=== PATIENT | female | born 1960 | race Caucasian/White ===

== ENCOUNTER 2020-08-12 12:42 | Outpatient (REF) | payer MEDICAID, SELFPAY ==
--- NOTE | 2020-08-12 | MM_ITS ---
EXAMINATION: MM SCREENING DIGITAL BREAST TOMOSYNTHESIS, BILATERAL CLINICAL INFORMATION: Screening. Asymptomatic. The lifetime risk of breast cancer based on the Tyrer-Cuzick Model is 5%. COMPARISON: Mammography: 06/28/2016, 01/23/2015 TECHNIQUE: Digital breast tomosynthesis is performed in both the craniocaudal and mediolateral oblique views along with computer-aided detection (CAD). Synthesized 2D images are generated from the tomosynthesis. FINDINGS: There are scattered areas of fibroglandular density (ACR BI-RADS breast composition Category b). There are no significant masses, abnormal calcifications, or other abnormalities. The axilla and skin contours are unremarkable. No significant changes. MM/MM tomosynthesis screening BI IMPRESSION: No mammographic evidence of malignancy. ASSESSMENT: BI-RADS 1: Negative RECOMMENDATION: Routine annual mammography screening. This patient's information was entered into a reminder system with a target due date for their next mammogram.
== END 2020-08-12 12:43 | disposition home or self-care (01) ==
LOC: HO.MAMMO 12:42
PROVIDERS: PCP Internal Medicine; Visit Provider Internal Medicine
DX: Z12.31 Encounter for screening mammogram for malignant neoplasm of breast (principal)
CPT/HCPCS: 77063; 77067

== ENCOUNTER 2020-09-17 23:26 | Emergency (ER) | payer MEDICAID, SELFPAY ==
[2020-09-17 23:29] VITALS: BP 163/91; PULSE 78; RESP 16; TEMP 36.6; O2SAT 100
--- NOTE | 2020-09-17 23:42 | ED_ITS ---
HPI - General Adult General Chief complaint: Anxiety Stated complaint: HIGH BLOOD PRESSURE Time Seen by Provider: 09/17/20 23:40 Source: patient Limitations: no limitations History of Present Illness HPI narrative: Patient is anxious and having high blood pressure. Recently placed on sertaline for anxiety but her blood pressure has been running high since starting her new medication Onset (ago): day(s) Severity: moderate Associated symptoms: other (palpitations and elevated BP) Related Data Allergies Allergy/AdvReac Type Severity Reaction Status Date / Time No Known Allergies Allergy Verified 09/18/20 00:04 Review of Systems Constitutional: Constitutional: Reports no additional constitutional complaints Eyes: Eyes: Reports no additional eye complaints ENT: Denies dizziness Cardiovascular: Cardiovascular: Reports no additional cardiovascular complaints Respiratory: Respiratory: Reports as per HPI Gastrointestinal: Gastrointestinal: Reports no additional gastrointestinal complaints Genitourinary: Genitourinary: Reports no additional female genitourinary complaints Musculoskeletal: Musculoskeletal: Reports no additional musculoskeletal complaints Integumentary/Breasts: Skin/Breast: Denies rash Neurologic: Reports system reviewed and no additional complaints, except as documented, Denies dizziness and Denies Sensory deficit (Neuro) Psychiatric: Psychiatric: Reports anxiety Comments: patient feeling that her blood pressure is coming from her new anxiety medication PMFSH Past Medical History Medical History Anxiety Diabetes High cholesterol Hypertension Social History Social History Use of substances other than those prescribed or required for medical reasons: No Advance Directives: No Advance Directives Information Provided: No Physical Exam Vital Signs: Vital Signs: Last Vital Signs Temp 98.7 F 09/18/20 00:04 Pulse 67 09/18/20 00:04 Resp 16 09/18/20 00:04 BP 156/89 H 09/18/20 00:04 Pulse Ox 99 09/18/20 00:04 Body Mass Index 25.7 Const: Other: tremulous General: anxious Nutritional Appearance: average body habitus Orientation/consciousness: oriented to person and patient oriented x3 Limitations: no limitations HENMT: Head: Yes normal to inspection Ears: external ears normal General nose exam: Normal external nose present Mouth: Normal oral and palatal mucosa present and oropharynx normal Throat: Yes posterior oropharynx normal Eyes: General: appearance normal, both eyes and all related structures Neck: Other: supple Neck: Yes normal visual inspection Chest: Chest palpation & inspection: normal inspection of the chest Resp: Auscultation: clear to auscultation bilaterally Cardio: Jugular venous distension: no JVD Rate: regular rate Rhythm: regular rhythm Heart sounds: S1 normal heart sound present and S2 normal heart sound present GI: Inspection: Yes normal to inspection Palpation (GI): Soft to palpation, nontender and No hepatosplenomegaly present Auscultation: normal bowel sounds : General: Yes no CVA tenderness Back/Spine/Pelvis: Back: no CVA tenderness Skin: General skin exam: no rashes or lesions noted Neuro: General: oriented to person and patient oriented x3 Cranial nerves: Yes CN's II-XII intact bilaterally Motor exam (neuro): 5/5 motor strength present throughout Sensory Exam: No Sensory deficit (Neuro) Extrem: General: Yes normal to inspection Psych: Appearance: grossly normal Course Course Course Narrative: patient much more relaxed, blood pressure improved will dc home Medical Decision Making [facility] Narrative Medical decision making narrative: patient with axiety will dc home Discharge Plan Discharge Clinical Impression: Acute anxiety Patient Disposition: Home, Self-Care Instructions: Anxiety (ED) Referrals: Nancy Su MD [Primary Care Provider] - 2 days
[2020-09-18 00:04] VITALS: BP 156/89; PULSE 67; RESP 16; TEMP 37.1; O2SAT 99; BMI 25.7
[2020-09-18] MEDS: LORazepam 2 MG/ML VIAL 1 MG IM (00:16)
[2020-09-18 01:39] VITALS: BP 143/81; PULSE 60; RESP 16; O2SAT 99
== END 2020-09-18 02:02 | disposition home or self-care (01) ==
PROVIDERS: Emergency Provider Emergency Medicine; PCP Internal Medicine
DX: F41.9 Anxiety disorder, unspecified (principal); I10 Essential (primary) hypertension; E11.9 Type 2 diabetes mellitus without complications; Z79.899 Other long term (current) drug therapy
CPT/HCPCS: 96372; 99284; J2060

== ENCOUNTER 2020-09-19 03:23 | Emergency (ER) | payer MEDICAID, SELFPAY ==
--- NOTE | 2020-09-19 03:45 | ED_ITS ---
HPI - Anxiety General Chief Complaint: Anxiety Stated Complaint: High Blood Pressure Time Seen by Provider: 09/19/20 03:45 Source: patient Mode of arrival: ambulatory Limitations: no limitations History of Present Illness complaint: anxiety Onset (ago): day(s) (2) Symptoms: sense of impending doom Severity: similar to previous episodes Quality: intermittent Place: home History of similar episodes: Yes Provoking factors: work/job stress Relieving factors: other (given ativan last night and it helped but returned again, has been taking sertraline 25mg started x 2 days ago) Exacerbating factors: thinking about event Associated symptoms: denies other symptoms Related Data Previous Rx's Medication Instructions Recorded lorazepam [Ativan] 1 mg PO BEDTIME PRN #5 tab 09/19/20 Allergies Allergy/AdvReac Type Severity Reaction Status Date / Time No Known Allergies Allergy Verified 09/18/20 00:04 Review of Systems Review of Systems: Constitutional : No Fever, No Chills ENT/Mouth : No Ear Pain, No Nasal Congestion, No sore throat Eyes: No Eye Pain, No Swelling, No Redness Cardiovascular : No Chest Pain, No SOB Respiratory : No Cough, No Sputum, No Dyspnea Gastrointestinal : No Nausea, No Vomiting, No Diarrhea, No Hematochezia, No Melena Genitourinary : No Dysuria, No Urinary Frequency, No Hematuria Musculoskeletal : No Myalgias Skin : No Skin Lesions, No rash Neuro : No Weakness, No Numbness, No Paresthesias, No Dizziness, No Headache Psych : positive Anxiety, positive Depression, no SI/HI All other systems reviewed and are negative [facility] Past Medical History Attestation statement: The following information was validated with the patient. Medical History Anxiety Diabetes High cholesterol Hypertension Social History Social History Alcohol intake: never Smoking Status: Never smoker Use of substances other than those prescribed or required for medical reasons: No Advance Directives: No Physical Exam Vital Signs: Vital Signs: Last Vital Signs Temp 98.2 F 09/19/20 03:47 Pulse 64 09/19/20 03:47 Resp 16 09/19/20 03:47 BP 154/84 H 09/19/20 03:47 Pulse Ox 99 09/19/20 03:47 Body Mass Index 25.7 Appearance: Alert. Oriented X3. No acute distress. Anxious Eyes: Pupils equal, round and reactive to light. ENT: Pharynx normal. Neck: Normal inspection. Neck supple. CVS: Normal heart rate and rhythm. Pulses normal. Respiratory: No respiratory distress. Breath sounds normal. Abdomen: Soft and nontender. Skin: Skin warm and dry. Normal skin color. Normal skin turgor. Extremities: No lower extremity edema. No calf ttp Neuro: Oriented X 3. No motor deficit. No sensory deficit. 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
[2020-09-19 03:47] VITALS: BP 154/84; PULSE 64; RESP 16; TEMP 36.8; O2SAT 99; BMI 25.7
[2020-09-19 03:54] VITALS: BP 153/83; PULSE 68; RESP 16; TEMP 36.8; O2SAT 99
[2020-09-19] MEDS: LORazepam 1 MG TABLET PO (04:02)
--- NOTE | 2020-09-19 05:54 | ECG_ITS ---
Test Reason : ANXITY Blood Pressure : / mmHG Vent. Rate : 062 BPM Atrial Rate : 062 BPM P-R Int : 166 ms QRS Dur : 098 ms QT Int : 440 ms P-R-T Axes : 043 -07 040 degrees QTc Int : 446 ms Normal sinus rhythm Normal ECG When compared with ECG of 16-JUL-2019 10:27, No significant change was found Referred By: Emi Tellez Electronically Signed By:Jah Miller
== END 2020-09-19 06:20 | disposition home or self-care (01) ==
PROVIDERS: Emergency Provider Emergency Medicine; PCP Internal Medicine
DX: F41.1 Generalized anxiety disorder (principal); F43.0 Acute stress reaction; Z79.899 Other long term (current) drug therapy
CPT/HCPCS: 93005; 99283; 99284

== ENCOUNTER → 2021-08-06 08:49 | Outpatient (BNVA) | payer MEDICAID, SELFPAY | PROVIDERS: PCP Internal Medicine; Referring Provider Internal Medicine; Visit Provider Internal Medicine Cardiovascular Disease | DX: I10 Essential (primary) hypertension (principal); R00.2 Palpitations | CPT/HCPCS: 93005; 99202 ==

== ENCOUNTER 2021-08-18 14:21 | Outpatient (REF) | payer MEDICAID, SELFPAY ==
--- NOTE | ~2021-08-18 | XR_ITS ---
EXAMINATION: XR LUMBOSACRAL SPINE WITH OBLIQUES CLINICAL INFORMATION: Left-sided sciatica COMPARISON: Previous x-ray July 2017 TECHNIQUE: AP, both oblique, and lateral views of the lumbar spine. Lateral view of the lumbosacral junction. 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 Bone alignment is normal. No fracture or dislocation is seen. Disc spaces are normal. There is lower lumbar spine facet arthritis. No pars defect is seen. 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
== END 2021-08-18 14:22 | disposition home or self-care (01) ==
LOC: HO.XRAY 14:21
PROVIDERS: PCP Internal Medicine; Visit Provider Internal Medicine
DX: M54.42 Lumbago with sciatica, left side (principal)
CPT/HCPCS: 72110

== ENCOUNTER 2023-03-30 14:36 | Outpatient (REF) | payer MEDICAID, SELFPAY ==
[2023-03-30 16:36] LABS: MANUAL DIFF FLAG NO
[2023-03-30 16:42] LABS: Basophils Percent Auto 0.4 % (0-2); Eosinophils Absolute Auto 0.1 X10*3/uL (0.0-0.4); Eosinophils Percent Auto 1.5 % (0-4); Hematocrit 38.4 % (37.0-47.0); Hemoglobin 12.9 g/dl (12.0-16.0); Imm Gran Abs Auto 0.02 X10*3/uL (0.00-0.03); Imm Gran Pct Auto 0.3 % (0.0-0.4); Lymphocytes Absolute Auto 2.7 X10*3/uL (1.2-4.9); Lymphocytes Percent Auto 39.4 % (20-40); Mean Corpuscular HGB Conc 33.6 g/dl (31.0-35.0); Mean Corpuscular Hemoglobin 29.1 pg (27.0-33.0); Mean Corpuscular Volume 86.7 fL (80.0-98.0); Mean Platelet Volume 9.7 fL (9.4-12.3); Monocytes Absolute Auto 0.7 X10*3/uL (0.1-1.2); Monocytes Percent Auto 9.6 % (2-11); Neutrophils Absolute Auto 3.4 x10*3/uL (2.0-8.3); Neutrophils Percent Auto 48.8 % (45-73); Platelet Count 300 X10*3/uL (160-400); Red Blood Count 4.43 X10*6/uL (4.20-5.50); Red Cell Distribution Width 13.2 % (11.0-16.0); White Blood Count 6.9 X10*3/uL (4.8-10.8)
[2023-03-30 17:29] LABS: Alanine Aminotransferase 18 U/L (0-31); Albumin Level 4.5 g/dL (3.5-5.0); Alkaline Phosphatase 89 U/L (39-117); Anion Gap 14 (12-20); Aspartate Amino Transferase 16 U/L (5-31); Bilirubin Direct 0.2 mg/dL (0.0-0.5); Bilirubin Total 0.5 mg/dL (0.0-1.0); Blood Urea Nitrogen 14 mg/dL (9-16); Calcium 9.7 mg/dL (8.4-10.2); Carbon Dioxide 25 mmol/L (22-29); Chloride 105 mmol/L (96-108); Cholesterol 167 mg/dL; Estimated Glomerular Filt Rate > 60; Glucose Random 45 mg/dL (60-115); HDL Cholesterol 43 mg/dL; LDL Cholesterol Calculated 101 mg/dl; Potassium 3.5 mmol/L (3.3-5.1); Sodium 140 mmol/L (135-145); Total Protein 7.6 g/dL (6.5-8.0); Triglycerides 117 mg/dL
== END 2023-03-30 14:37 | disposition home or self-care (01) ==
LOC: HO.HHCL 14:36
PROVIDERS: Visit Provider Internal Medicine
DX: E11.9 Type 2 diabetes mellitus without complications (principal)
CPT/HCPCS: 80048; 80061; 80076; 85025

== ENCOUNTER 2023-06-08 06:56 | Emergency (ER) | payer MEDICAID, SELFPAY ==
[2023-06-08 07:00] VITALS: BP 193/111; PULSE 77; RESP 18; TEMP 36.8; O2SAT 97; BMI 27.3
[2023-06-08 10:22] LABS: Bacteria Urine 4+ (None Seen); Hyaline Casts Urine 0-2 /LPF (0-2); RBC Urine >20 /HPF (0-2); Squamous Epithelial Cell Urine 0-2 /HPF (0-2); WBC Urine >50 /HPF (0-5)
[2023-06-08 10:24] LABS: Appearance Urine Turbid; Color Urine RED; Glucose Urine UA Negative (Negative); Leukocyte Esterase Urine Small (1+) (Negative); PH 6.5 (5.0-9.0); Specific Gravity - Urine 1.025 (1.005-1.025); UACC Culture Trigger YES; UMIC TRIGGER UACC YES; Urine Blood Large (3+) (Negative)
--- NOTE | 2023-06-08 11:11 | ED.FEMALEGU ---
HPI - Female Genitourinary General Chief complaint: Urogenital-Female Stated complaint: blood in urine, high bp possible from anxiety Time Seen by Provider: 06/08/23 11:14 Source: patient, RN notes reviewed and old records reviewed Mode of arrival: ambulatory Limitations: no limitations History of Present Illness HPI Narrative: 62-year-old female presents for evaluation of lower abdominal discomfort and blood in her urine Patient reports that her symptoms started at 6:30 a.m. this morning She states after using the bathroom in the emergency department her symptoms seem to have improved somewhat Denies any fevers, chills Denies any recent travel She reports that she recently started benzonatate for a cough and is concerned that is related to the blood in the urine Related Data Home Medications Medication Instructions Recorded Confirmed atorvastatin 20 mg tablet 20 mg PO DAILY 08/06/21 08/06/21 baclofen 20 mg tablet 20 mg PO TID 08/06/21 08/06/21 glipizide 2.5 mg tablet, extended 2.5 mg PO DAILY 08/06/21 08/06/21 release 24 hr hydroxyzine HCl 50 mg tablet 50 mg PO BID 08/06/21 08/06/21 lisinopril 40 mg tablet 40 mg PO DAILY 08/06/21 08/06/21 metformin 500 mg tablet 500 mg PO BID 08/06/21 08/06/21 omeprazole 20 mg capsule,delayed 20 mg PO DAILY 08/06/21 08/06/21 release Previous Rx's Medication Instructions Recorded lorazepam 1 mg tablet (Ativan) 1 mg PO BEDTIME PRN anxiety #5 tabs 09/19/20 nitrofurantoin 100 mg PO Q12H 5 days #10 caps 06/08/23 monohydrate/macrocrystals 100 mg capsule (Macrobid) phenazopyridine 200 mg tablet 200 mg PO TID 6 doses #6 tabs 06/08/23 (Pyridium) Allergies Allergy/AdvReac Type Severity Reaction Status Date / Time No Known Allergies Allergy Verified 06/08/23 07:04 Review of Systems Constitutional: Constitutional: Denies chills and Denies fever(s) Gastrointestinal: Gastrointestinal: Reports abdominal pain, Denies nausea and Denies vomiting Genitourinary: Genitourinary: Reports hematuria, Reports difficulty voiding and Reports dysuria PMF Past Medical History Medical History Anxiety Diabetes High cholesterol Hypertension Social History Social History Alcohol intake: never Advance Directives: No Advance Directives Information Provided: No Physical Exam Vital Signs: Vital Signs: Last Vital Signs Temp 98.3 F 06/08/23 07:00 Pulse 69 06/08/23 11:15 Resp 19 06/08/23 11:15 BP 164/95 H 06/08/23 11:15 Pulse Ox 98 06/08/23 11:15 O2 Del Method Room Air 06/08/23 07:00 BMI result Body Mass Index 27.3 Const: General: healthy appearing, comfortable, no acute distress, alert and awake Nutritional Appearance: well nourished Orientation/consciousness: patient oriented x3 HEENT: Head: Yes normocephalic and Yes atraumatic Eyes: Eyelids: Yes eyelids normal Conjunctivae: conjunctivae normal Sclerae: sclerae normal Corneas: corneas normal Pupils: Equal, round and reactive pupils present EOM: EOMs intact bilaterally Resp: Effort & Inspection: normal respiratory effort, able to speak in complete sentences and not labored GI: Inspection: No distended Palpation (GI): Soft to palpation, not firm, nontender, no guarding and not rigid Skin: General skin exam: elasticity normal Neuro: General: patient oriented x3 Cranial nerves: Yes Equal, round and reactive pupils present and Yes Bilaterally intact EOM present Cognition (Neuro): normal cognition Medical Decision Making Medical Decision Making MDM Narrative: 62-year-old female presents for evaluation of lower abdominal discomfort. Vital signs are stable, no fever, she is afebrile. Abdominal exam is reassuring. Given the acuity of the symptoms, a urinary tract infection is fair to be most likely, less likely bladder mass. UA is consistent with UTI, will treat with Macrobid b.i.d. x5 days. Patient educated on her elevated blood pressure but improved without intervention and she will follow-up with her PCP Differential Diagnosis Differential Diagnoses: The differential diagnosis associated with the presentation includes UTI Cystitis High blood pressure Hypertension Bladder CA less likely Lab Data MDM Lab Attestation statement: I reviewed the patient's lab results. Consistent with urinary tract infection Labs: Lab Results 06/08/23 Range/Units 10:04 Urine Color RED Urine Appearance Turbid Urine pH 6.5 (5.0-9.0) Ur Specific [place] 1.025 (1.005-1.025) Urine Protein See Note (Neg-Trace) mg/dL Urine Glucose (UA) Negative (Negative) mg/dL Urine Ketones See Note (Negative) mg/dL Urine Blood Large (3+) H (Negative) Urine Nitrite See Note (Negative) Ur Leukocyte Esterase Small (1+) H (Negative) Urine RBC >20 H (0-2) /HPF Urine WBC >50 H (0-5) /HPF Ur Squamous Epith Cells 0-2 (0-2) /HPF Urine Bacteria 4+ (None Seen) Hyaline Casts 0-2 (0-2) /LPF Prescription Management I considered prescription management with: Antibiotic Chronic Conditions Patient?s care impacted by: Hypertension Discharge Plan Discharge Clinical Impression: Urinary tract infection, Hypertension Patient Disposition: Home, Self-Care Instructions: Urinary Tract Infection in Women (ED) Additional Instructions: Take Macrobid twice daily for the next 5 days Use Pyridium as needed for urinary discomfort Your blood pressure was elevated on your visit today, follow this up with your primary doctor Return for new or worsening symptoms Prescriptions: New phenazopyridine [Pyridium] 200 mg tablet 200 mg PO TID Qty: 6 0RF nitrofurantoin monohyd/m-cryst [Macrobid] 100 mg capsule 100 mg PO Q12H 5 Days Qty: 10 0RF Rx Instructions: must administer with a meal/food No Action lorazepam [Ativan] 1 mg tablet 1 mg PO BEDTIME PRN (Reason: anxiety) Qty: 5 0RF lisinopril 40 mg tablet 40 mg PO DAILY hydroxyzine HCl 50 mg tablet 50 mg PO BID metformin 500 mg tablet 500 mg PO BID baclofen 20 mg tablet 20 mg PO TID omeprazole 20 mg capsule,delayed release(DR/EC) 20 mg PO DAILY glipizide 2.5 mg tablet extended release 24hr 2.5 mg PO DAILY atorvastatin 20 mg tablet 20 mg PO DAILY
[2023-06-08 11:15] VITALS: BP 164/95; PULSE 69; RESP 19; O2SAT 98
== END 2023-06-08 11:35 | disposition home or self-care (01) ==
PROVIDERS: Emergency Provider Emergency Medicine; PCP Internal Medicine
DX: N39.0 Urinary tract infection, site not specified (principal); B96.1 Klebsiella pneumoniae [K. pneumoniae] as the cause of diseases classified elsewhere; I10 Essential (primary) hypertension; E11.9 Type 2 diabetes mellitus without complications; E78.00 Pure hypercholesterolemia, unspecified; Z79.899 Other long term (current) drug therapy; Z79.84 Long term (current) use of oral hypoglycemic drugs
CPT/HCPCS: 81001; 87086; 87088; 87186; 99283

== ENCOUNTER 2023-06-10 13:29 | Emergency (ER) | payer MEDICAID, SELFPAY ==
--- NOTE | 2023-06-10 13:37 | ECG_ITS ---
Test Reason : DIZZINESS Blood Pressure : / mmHG Vent. Rate : 064 BPM Atrial Rate : 064 BPM P-R Int : 142 ms QRS Dur : 094 ms QT Int : 378 ms P-R-T Axes : 016 -03 038 degrees QTc Int : 389 ms Normal sinus rhythm Minimal voltage criteria for LVH, may be normal variant ( R in aVL ) Borderline ECG When compared with ECG of 19-SEP-2020 05:54, QT has shortened Referred By: Generic ED Physician Electronically Signed By:GENEVIEVE BERG MD
[2023-06-10 14:01] VITALS: BP 142/83; PULSE 64; RESP 17; TEMP 36; O2SAT 99; BMI 27.3
--- NOTE | 2023-06-10 14:01 | ED_ITS ---
HPI - Dizziness General Chief Complaint: General Medical Stated Complaint: dizzy and high bp Time Seen by Provider: 06/10/23 19:41 Source: patient and family Mode of arrival: ambulatory Limitations: no limitations History of Present Illness HPI Narrative: 62 yo female with history of HTN, DM, HLD, anxiety here with complaints of dizziness with waking and high blood pressure when checked at home. Patient reports she took off her blood pressure medications. She describes the dizziness as feeling lightheaded. She denies any associated chest pain, shortness of breath, diaphoresis, vomiting, abdominal pain. Patient denies any recent illnesses. Patient reports she was seen here on June 08 and was diagnosed with a urinary tract infection and started on Macrobid. Related Data Home Medications Medication Instructions Recorded Confirmed atorvastatin 20 mg tablet 20 mg PO DAILY 08/06/21 08/06/21 baclofen 20 mg tablet 20 mg PO TID 08/06/21 08/06/21 glipizide 2.5 mg tablet, extended 2.5 mg PO DAILY 08/06/21 08/06/21 release 24 hr hydroxyzine HCl 50 mg tablet 50 mg PO BID 08/06/21 08/06/21 lisinopril 40 mg tablet 40 mg PO DAILY 08/06/21 08/06/21 metformin 500 mg tablet 500 mg PO BID 08/06/21 08/06/21 omeprazole 20 mg capsule,delayed 20 mg PO DAILY 08/06/21 08/06/21 release Previous Rx's Medication Instructions Recorded lorazepam 1 mg tablet (Ativan) 1 mg PO BEDTIME PRN anxiety #5 tabs 09/19/20 nitrofurantoin 100 mg PO Q12H 5 days #10 caps 06/08/23 monohydrate/macrocrystals 100 mg capsule (Macrobid) phenazopyridine 200 mg tablet 200 mg PO TID 6 doses #6 tabs 06/08/23 (Pyridium) potassium chloride 20 mEq oral 20 meq PO DAILY #5 ea 06/10/23 packet Allergies Allergy/AdvReac Type Severity Reaction Status Date / Time No Known Allergies Allergy Verified 06/08/23 07:04 Review of Systems 2 Review of Systems: Yes all other systems are reviewed and are negative Constitutional: Constitutional: Reports no additional constitutional complaints, Denies body ache(s), Denies chills, Denies fever(s), Denies headache(s) and Denies weakness Eyes: Eyes: Reports no additional eye complaints and Denies change in vision ENT: Reports system reviewed and no additional complaints, except as documented, Reports dizziness, Denies headache(s), Denies nasal congestion, Denies nasal discharge and Denies neck pain Cardiovascular: Cardiovascular: Reports no additional cardiovascular complaints, Denies chest pain, Denies leg edema and Denies dyspnea Respiratory: Respiratory: Reports no additional respiratory complaints, Denies cough and Denies dyspnea Gastrointestinal: Gastrointestinal: Reports no additional gastrointestinal complaints, Denies abdominal pain, Denies diarrhea, Denies nausea and Denies vomiting Genitourinary: Genitourinary: Reports no additional female genitourinary complaints and Denies urinary incontinence Musculoskeletal: Musculoskeletal: Reports no additional musculoskeletal complaints, Denies back pain, Denies arthralgias, Denies joint swelling, Denies neck pain, Denies numbness and Denies tingling Integumentary/Breasts: Skin/Breast: Reports system reviewed and no additional complaints, except as docu and Denies rash Neurologic: Reports system reviewed and no additional complaints, except as documented, Denies Abnormal speech present, Reports dizziness, Denies headache(s), Denies numbness, Denies tingling and Denies weakness PMFSH Past Medical History Attestation statement: The following information was validated with the patient. Source: old records reviewed and nursing notes reviewed Medical History Anxiety High cholesterol Hypertension Diabetes Social History Social History Alcohol intake: never Advance Directives: No Advance Directives Information Provided: No Physical Exam 2 Vital Signs: Vital Signs: Last Vital Signs Temp 98.2 F 06/10/23 19:49 Pulse 65 06/10/23 19:57 Resp 18 06/10/23 19:49 BP 179/98 H 06/10/23 19:57 Pulse Ox 98 06/10/23 19:49 O2 Del Method Room Air 06/10/23 19:49 BMI result Body Mass Index 27.3 Const: General: cooperative, healthy appearing, comfortable and no acute distress Orientation/consciousness: patient oriented x3 Limitations: no limitations HEENT: Head: Yes normal to inspection Ears: hearing grossly normal bilaterally and TM's normal bilaterally General nose exam: Normal external nose present Face and sinus: Yes normal facial exam Mouth: Normal oral and palatal mucosa present Throat: Yes posterior oropharynx normal, Yes tonsils normal and Yes uvula midline Eyes: General: appearance normal, both eyes and all related structures P upils: Equal, round and reactive pupils present Neck: Neck: Yes normal visual inspection, Yes full ROM, Yes no lymphadenopathy and Yes no meningeal signs Chest: Chest palpation & inspection: normal inspection of the chest Resp: Effort & Inspection: normal respiratory effort Auscultation: clear to auscultation bilaterally Cardio: Rate: regular rate Rhythm: regular rhythm Peripheral pulses: P eripheral pulses 2+ throughout GI: Inspection: Yes normal to inspection Palpation (GI): Soft to palpation and nontender Auscultation: normal bowel sounds Back/Spine/Pelvis: Thoracic/Lumbar Spine: thoracic and lumbar spine normal to inspection Skin: General skin exam: no rashes or lesions noted Neuro: General: patient oriented x3, moves all extremities, no meningeal signs, no focal motor deficits and normal sensation to monofilament Cranial nerves: Yes CN's II-XII intact bilaterally, Yes Equal, round and reactive pupils present, Yes Bilaterally intact EOM present, Yes Nystagmus not present, Yes Normal facial strength present and Yes Midline tongue present Cognition (Neuro): normal cognition Speech: No Abnormal speech present Gait exam (Neuro): Normal gait present Motor exam (neuro): 5/5 motor strength present throughout Sensory Exam: Normal double simultaneous stimulation for sensation Coordination: [id number] test normal, [id number] test normal and tandem gait normal Extrem: General: Yes normal to inspection Course Course Course Narrative: This is a rapid medical exam. Deferred additional HPI, ROS, PE to primary provider. 62 yo female with history of HTN, DM, HLD here with complaints of dizziness with waking and high blood pressure. WIll obtain labs, EKG, orthos. VSS Medications Administered Discontinued Medications Generic Name Dose Route Start Last Admin Trade Name Freq PRN Reason Stop Dose Admin Potassium Chloride 40 meq 06/10/23 19:34 06/10/23 19:47 Potassium Chloride Er 20 Meq Tab.Er.Prt PO 06/10/23 19:35 40 meq ONCE ONE Administration Medical Decision Making Medical Decision Making MDM Narrative: 62 yo female with history of HTN, DM, HLD, anxiety here with complaints of dizziness with waking and high blood pressure when checked at home. Patient reports she took off her blood pressure medications. She describes the dizziness as feeling lightheaded. She denies any associated chest pain, shortness of breath, diaphoresis, vomiting, abdominal pain. Patient denies any recent illnesses. Patient reports she was seen here on June 08 and was diagnosed with a urinary tract infection and started on Macrobid. Normal neuro exam with no focal deficits. Mild hypertension noted. Otherwise vitals are unremarkable. Lungs clear throughout. Exam is benign. Will obtain labs, orthostatics, EKG, UA Differential Diagnosis Differential Diagnoses: The differential diagnosis associated with the presentation includes Orthostatic hypotension, anemia, electrolyte abnormality Low concern for ACS Low concern for CVA, ICH, cerebellar and Admission/Observation Consideration of admission/observation: Escalation of care including admission/observation considered Normal neuro exam with no focal deficits. I have low concern for ICH, CVA, cerebellar infarct requiring advanced imaging, emergent neurology consultation and or further workup Lab Data MDM Lab Attestation statement: I reviewed the patient's lab results. Labs show mild hypokalemia otherwise unremarkable 06/10/23 14:12 06/10/23 14:12 Labs: Lab Results 06/10/23 06/10/23 Range/Units 13:57 14:12 WBC 8.0 (4.8-10.8) X10*3/uL RBC 4.46 (4.20-5.50) X10*6/uL Hgb 12.9 (12.0-16.0) g/dl Hct 38.1 (37.0-47.0) % MCV 85.4 (80.0-98.0) fL MCH 28.9 (27.0-33.0) pg MCHC 33.9 (31.0-35.0) g/dl RDW 13.0 (11.0-16.0) % Plt Count 307 (160-400) X10*3/uL MPV 8.9 L (9.4-12.3) fL Immature Gran % (Auto) 0.4 (0.0-0.4) % Neut % (Auto) 74.3 H (45-73) % Lymph % (Auto) 17.9 L (20-40) % [place] % (Auto) 6.3 (2-11) % Eos % (Auto) 0.9 (0-4) % Baso % (Auto) 0.2 (0-2) % Lymph # (Auto) 1.4 (1.2-4.9) X10*3/uL [place] # (Auto) 0.5 (0.1-1.2) X10*3/uL Eos # (Auto) 0.1 (0.0-0.4) X10*3/uL Baso # (Auto) 0.0 (0.0-0.2) X10*3/uL Abs Immat Gran (auto) 0.03 (0.00-0.03) X10*3/uL Absolute Neuts (auto) 6.0 (2.0-8.3) x10*3/uL Absolute Nucleated RBC 0.000 (0.0-0.012) X10*3/uL Nucleated RBC % (auto) 0.0 (0.0-0.2) /100WBC PT 11.1 (11.1-13.3) SEC INR 0.9 (0.9-1.1) Sodium 140 (135-145) mmol/L Potassium 3.1 L (3.3-5.1) mmol/L Chloride 103 (96-108) mmol/L Carbon Dioxide 25 (22-29) mmol/L Anion Gap 15 (12-20) BUN 13 (9-16) mg/dL Creatinine 0.76 (0.5-1.4) mg/dL Estim Creat Clear Calc 76.5 Estimated GFR > 60 Random Glucose 182 H (60-115) mg/dL Calcium 9.9 (8.4-10.2) mg/dL Magnesium 1.8 (1.6-2.6) mg/dL Total Bilirubin 0.6 (0.0-1.0) mg/dL Direct Bilirubin 0.2 (0.0-0.5) mg/dL AST 15 (5-31) U/L ALT 17 (0-31) U/L Alkaline Phosphatase 98 (39-117) U/L Troponin I High Sens < 2.7 (<3.5-17.0) ng/L Total Protein 7.9 (6.5-8.0) g/dL Albumin 4.4 (3.5-5.0) g/dL Urine Color Yellow Urine Appearance Clear Urine pH 5.5 (5.0-9.0) Ur Specific [place] 1.010 (1.005-1.025) Urine Protein Negative (Neg-Trace) mg/dL Urine Glucose (UA) 500 H (Negative) mg/dL Urine Ketones Negative (Negative) mg/dL Urine Blood Negative (Negative) Urine Nitrite Negative (Negative) Ur Leukocyte Esterase Trace H (Negative) Urine RBC 0-2 (0-2) /HPF Urine WBC 0-5 (0-5) /HPF Ur Squamous Epith Cells 0-2 (0-2) /HPF Urine Bacteria None Seen (None Seen) Hyaline Casts 0-2 (0-2) /LPF Independent Interpretation I performed an independent interpretation of an: EKG Interpretation: I independently reviewed the EKG which shows normal sinus rhythm with a rate of 64, normal DC, normal QRS, normal QT Independent Historian Clinical information was also obtained from a feeling members at the bedside External Record Review External record reviewed: Inpatient record Reviewed previous ER record Tests considered The following testing was considered but not selected: Normal neuro exam no focal deficits. No need for CT head Discharge Plan Discharge Clinical Impression: Hypertension, Hypokalemia Patient Disposition: Home, Self-Care Instructions: Hypokalemia (ED), Hypertension (ED) Additional Instructions: Your potassium was mildly decreased. Your received a dose will your here in the ER. We are sending home with supplements for the next few days. Your blood pressure is mildly elevated. You should follow-up with primary care doctor for continued management of your blood pressure. Please return for any worsening symptoms Take your anxiety medications as needed Prescriptions: New potassium chloride 20 mEq packet 20 meq PO DAILY Qty: 5 0RF No Action lorazepam [Ativan] 1 mg tablet 1 mg PO BEDTIME PRN (Reason: anxiety) Qty: 5 0RF phenazopyridine [Pyridium] 200 mg tablet 200 mg PO TID Qty: 6 0RF nitrofurantoin monohyd/m-cryst [Macrobid] 100 mg capsule 100 mg PO Q12H 5 Days Qty: 10 0RF Rx Instructions: must administer with a meal/food lisinopril 40 mg tablet 40 mg PO DAILY hydroxyzine HCl 50 mg tablet 50 mg PO BID metformin 500 mg tablet 500 mg PO BID baclofen 20 mg tablet 20 mg PO TID omeprazole 20 mg capsule,delayed release(DR/EC) 20 mg PO DAILY glipizide 2.5 mg tablet extended release 24hr 2.5 mg PO DAILY atorvastatin 20 mg tablet 20 mg PO DAILY Referrals: Nancy Su MD [Primary Care Provider] - 1 week (as needed) Interventions: ED Discharge Assessment Last Done: 06/10/23 20:08 Discharge Date/Time: 06/10/23 20:08
[2023-06-10 14:08] LABS: Appearance Urine Clear; Color Urine Yellow; Glucose Urine UA 500 mg/dL (Negative); Leukocyte Esterase Urine Trace (Negative); Nitrite Urine Negative (Negative); PH 5.5 (5.0-9.0); UMIC TRIGGER UACC YES; Urine Blood Negative (Negative); Urine Ketones Negative (Negative); Urine Protein Negative (Neg-Trace)
[2023-06-10 14:13] LABS: Bacteria Urine None Seen (None Seen); Hyaline Casts Urine 0-2 /LPF (0-2); RBC Urine 0-2 /HPF (0-2); Squamous Epithelial Cell Urine 0-2 /HPF (0-2); WBC Urine 0-5 /HPF (0-5)
[2023-06-10 14:18] LABS: MANUAL DIFF FLAG NO
[2023-06-10 14:19] LABS: Basophils Percent Auto 0.2 % (0-2); Eosinophils Absolute Auto 0.1 X10*3/uL (0.0-0.4); Eosinophils Percent Auto 0.9 % (0-4); Hematocrit 38.1 % (37.0-47.0); Hemoglobin 12.9 g/dl (12.0-16.0); Imm Gran Abs Auto 0.03 X10*3/uL (0.00-0.03); Imm Gran Pct Auto 0.4 % (0.0-0.4); Lymphocytes Absolute Auto 1.4 X10*3/uL (1.2-4.9); Lymphocytes Percent Auto 17.9 % (20-40); Mean Corpuscular HGB Conc 33.9 g/dl (31.0-35.0); Mean Corpuscular Hemoglobin 28.9 pg (27.0-33.0); Mean Corpuscular Volume 85.4 fL (80.0-98.0); Mean Platelet Volume 8.9 fL (9.4-12.3); Monocytes Absolute Auto 0.5 X10*3/uL (0.1-1.2); Monocytes Percent Auto 6.3 % (2-11); Neutrophils Percent Auto 74.3 % (45-73); Platelet Count 307 X10*3/uL (160-400); Red Blood Count 4.46 X10*6/uL (4.20-5.50)
[2023-06-10 14:32] LABS: INTERNATIONAL NORM RATIO 0.9 (0.9-1.1); Prothrombin Time 11.1 SEC (11.1-13.3)
[2023-06-10 14:44] LABS: Alanine Aminotransferase 17 U/L (0-31); Albumin Level 4.4 g/dL (3.5-5.0); Alkaline Phosphatase 98 U/L (39-117); Anion Gap 15 (12-20); Aspartate Amino Transferase 15 U/L (5-31); Bilirubin Direct 0.2 mg/dL (0.0-0.5); Bilirubin Total 0.6 mg/dL (0.0-1.0); Blood Urea Nitrogen 13 mg/dL (9-16); Calcium 9.9 mg/dL (8.4-10.2); Carbon Dioxide 25 mmol/L (22-29); Chloride 103 mmol/L (96-108); Creatinine Clr Calc Pharmacy 76.5; Estimated Glomerular Filt Rate > 60; Glucose Random 182 mg/dL (60-115); Magnesium 1.8 mg/dL (1.6-2.6); Potassium 3.1 mmol/L (3.3-5.1); Sodium 140 mmol/L (135-145); Total Protein 7.9 g/dL (6.5-8.0)
[2023-06-10 14:53] LABS: Troponin-I High Sensitivity < 2.7 ng/L (<3.5-17.0)
[2023-06-10] MEDS: Potassium Chloride ER 20 MEQ TAB.ER.PRT 40 MEQ PO (19:47)
[2023-06-10 19:49] VITALS: BP 164/94; PULSE 62; RESP 18; TEMP 36.8; O2SAT 98
[2023-06-10 19:53] VITALS: BP 164/94; PULSE 64
[2023-06-10 19:54] VITALS: BP 185/100; PULSE 65
[2023-06-10 19:57] VITALS: BP 179/98; PULSE 65
== END 2023-06-10 20:08 | disposition home or self-care (01) ==
PROVIDERS: Nurse Practitioner Family; Emergency Provider Emergency Medicine; PCP Internal Medicine
DX: N39.0 Urinary tract infection, site not specified (principal); B96.1 Klebsiella pneumoniae [K. pneumoniae] as the cause of diseases classified elsewhere; E87.6 Hypokalemia; I10 Essential (primary) hypertension; R42 Dizziness and giddiness; E11.9 Type 2 diabetes mellitus without complications; E78.5 Hyperlipidemia, unspecified
CPT/HCPCS: 36415; 80048; 80076; 81001; 83735; 84484; 85025; 85610; 93005; 99284

== ENCOUNTER 2023-06-19 13:41 | Outpatient (REF) | payer MEDICAID, SELFPAY ==
[2023-06-19 16:46] LABS: Potassium 4.3 mmol/L (3.3-5.1)
== END 2023-06-19 13:42 | disposition home or self-care (01) ==
LOC: HO.HHCL 13:41
PROVIDERS: Visit Provider Nurse Practitioner Family
DX: E87.6 Hypokalemia (principal)
CPT/HCPCS: 36415; 84132

== ENCOUNTER 2023-11-27 19:20 | Emergency (ER) | payer MEDICAID, SELFPAY ==
--- NOTE | ~2023-11-27 | XR_ITS ---
EXAMINATION: XR CHEST CLINICAL INFORMATION: Dizziness. COMPARISON: Chest radiograph 09/18/2017. TECHNIQUE: 2 views of the chest were obtained. FINDINGS: Normal appearance of the cardiomediastinal silhouette. No focal airspace opacities, pleural effusion or pneumothorax. No pulmonary edema. Bony structures are unremarkable. XR/XR chest 2V IMPRESSION: No acute cardiopulmonary findings.
--- NOTE | 2023-11-27 19:59 | ED_ITS ---
HPI - General Adult General Chief complaint: General Medical Stated complaint: High Blood Pressure Time Seen by Provider: 11/28/23 04:11 Source: patient Mode of arrival: ambulatory Limitations: no limitations History of Present Illness HPI narrative: Patient comes to the emergency room complaining of high blood pressure. Patient states that 2 days ago, her blood pressure was as usual between 110 and 120 systolic. This Monday, patient states that when she checked her blood pressure as she usually does, it was 158/101. Patient states that she usually takes lisinopril 40 mg daily, and if her blood pressure is higher, she takes 20 mg additionally p.r.n.. Patient denies chest pain or shortness of breath. Related Data Home Medications Medication Instructions Recorded Confirmed atorvastatin 20 mg tablet 20 mg PO DAILY 08/06/21 08/06/21 baclofen 20 mg tablet 20 mg PO TID 08/06/21 08/06/21 glipizide 2.5 mg tablet, extended 2.5 mg PO DAILY 08/06/21 08/06/21 release 24 hr hydroxyzine HCl 50 mg tablet 50 mg PO BID 08/06/21 08/06/21 lisinopril 40 mg tablet 40 mg PO DAILY 08/06/21 08/06/21 metformin 500 mg tablet 500 mg PO BID 08/06/21 08/06/21 omeprazole 20 mg capsule,delayed 20 mg PO DAILY 08/06/21 08/06/21 release Previous Rx's Medication Instructions Recorded lorazepam 1 mg tablet (Ativan) 1 mg PO BEDTIME PRN anxiety #5 tabs 09/19/20 nitrofurantoin 100 mg PO Q12H 5 days #10 caps 06/08/23 monohydrate/macrocrystals 100 mg capsule (Macrobid) phenazopyridine 200 mg tablet 200 mg PO TID 6 doses #6 tabs 06/08/23 (Pyridium) potassium chloride 20 mEq oral 20 meq PO DAILY #5 ea 06/10/23 packet cefuroxime axetil 250 mg tablet 250 mg PO BID 7 days #14 tabs 06/12/23 Allergies Allergy/AdvReac Type Severity Reaction Status Date / Time No Known Allergies Allergy Verified 11/27/23 20:01 Review of Systems 2 Review of Systems: Constitutional : No Weight loss, No Fever, No Chills, No Night Sweats, No Fatigue, No Malaise ENT/Mouth : No Hearing loss, No Ear Pain, No Nasal Congestion, No Sinus Pain, No Hoarseness, No sore throat, No Rhinorrhea, No Swallowing Difficulty Eyes: No Eye Pain, No Swelling, No Redness, No Foreign Body, No Discharge, No Vision Changes Cardiovascular : No Chest Pain, No SOB, No Dyspnea on Exertion, No Orthopnea, No Edema, No Palpitations, complaining of high blood pressure, higher than usual Respiratory : No Cough, No Sputum, No Wheezing, No Smoke Exposure, No Dyspnea Gastrointestinal : No Nausea, No Vomiting, No Diarrhea, No Constipation, No abdominal Pain, No Hematochezia, No Melena Genitourinary : no irregular bleeding, No Dysuria, No Urinary Frequency, No Hematuria, No Urinary Incontinence, No Urgency, No Flank Pain, No Urinary Flow Changes, No Hesitancy Musculoskeletal : No joint pain, No Myalgias, No Joint Swelling Skin : No Skin Lesions, No rash Neuro : No Weakness, No Numbness, No Paresthesias, No Loss of Consciousness, No Dizziness, No Headache Psych : No Anxiety/Panic, No Depression, No SI/HI/AH/VH, No Social Issues, Heme/Lymph: No Bruising, No Bleeding,No Lymphadenopathy Endocrine : No Polyuria, No Polydipsia, No Temperature Intolerance PMFSH Past Medical History Medical History Anxiety High cholesterol Hypertension Diabetes Social History Social History Alcohol intake: never Use of substances other than those prescribed or required for medical reasons: No Advance Directives: No Advance Directives Information Provided: No Patient : No Physical Exam ED Vital Signs: Vital Signs - 24 hr 11/27/23 20:01 11/28/23 01:19 11/28/23 02:14 Temperature 98.5 F 98.6 F Pulse Rate 63 66 58 Respiratory Rate 16 20 Blood Pressure 123/84 168/88 H 157/91 H Pulse Oximetry 98 95 Oxygen Delivery Method Room Air Room Air 11/28/23 04:30 11/28/23 05:15 Temperature Pulse Rate 60 64 Respiratory Rate 18 Blood Pressure 195/100 H 156/82 H Pulse Oximetry Oxygen Delivery Method BMI result Body Mass Index 26.6 Const Other: Appearance: Alert. Oriented X3. No acute distress. Eyes: Pupils equal, round and reactive to light. ENT: Pharynx normal. Neck: Normal inspection. Neck supple. No lymph nodes noted. No crepitus CVS: Normal heart rate and rhythm. Pulses normal. Normal S1 and S2 Respiratory: No respiratory distress. Breath sounds normal. No Wheezing. No rales Abdomen: Soft and nontender. No rigidity. No distention. Skin: Skin warm and dry. Normal skin color. Normal skin turgor. Extremities: No lower extremity edema. No Lacerations. No Rash Neuro: Oriented X 3. No motor deficit. No sensory deficit. Moving all extremities. No slurred speech. CN 2 through 12 grossly intact Psych: calm, cooperative, normal affect Course Course Course Narrative: This is a rapid medical exam: Additional HPI, ROS, PE not included below will be deferred to primary provider. Patient is a 63-year-old female with history of DM, HTN, high cholesterol and anxiety presenting to the emergency department with complaint of dizziness earlier today, went home and checked BP it was 155/100. Took lisinopril this morning, then when BP was high tonight she took another half of her lisinopril. Denies headaches or vision changes. Denies chest pain or dyspnea. BP 123/84 in triage. Plan: EKG, labs, CXR Medications Administered Discontinued Medications Generic Name Dose Route Start Last Admin Trade Name Freq PRN Reason Stop Dose Admin Amlodipine Besylate 10 mg 11/28/23 04:20 11/28/23 04:31 Amlodipine Besylate 10 Mg Tablet PO 11/28/23 04:21 10 mg ONCE ONE Administration Protocol Medical Decision Making Medical Decision Making [facility] Narrative: -my interpretation of labs: Hematology and chemistry within normal limits, troponin negative. -my interpretation of chest x-ray: No infiltrates -my interpretation of EKG, sinus bradycardia, heart rate 59, no ST segment depression or elevation, no T-wave inversion, QTC 417 -patient has been taking lisinopril 40 mg for many years. Patient states that she is compliant with her medications. Patient states that before this week and her blood pressure was well controlled. After discussing with the patient anything that she may have done different, patient had a few large meals on Monday to celebrate [facility]. -patient's blood pressure 195/100, patient was given a dose of amlodipine 10 mg. Patient denies headache, no blurred vision, no chest pain or shortness of breath -I discussed with the patient that this is a fairly new high elevated blood pressure for which was normal until the weekend before changing her diet. Discussed with the patient that his best not to change her blood pressure at this time, patient instructed to keep a log of her BP. If blood pressure continues being high, she can discussed with her PCP adding a new medication. Blood pressure 156/82, patient asymptomatic Differential Diagnosis Differential Diagnoses: The differential diagnosis associated with the presentation includes (Hypertension, hypertensive urgency, hypertensive emergency) Admission/Observation Consideration of admission/observation: Escalation of care including admission/observation considered (Given patient's uncontrolled blood pressure, admission considered) Lab Data MDM Lab Attestation statement: I reviewed the patient's lab results. 11/27/23 20:15 11/27/23 20:15 Labs: Lab Results 11/27/23 Range/Units 20:15 WBC 8.7 (4.8-10.8) X10*3/uL RBC 4.19 L (4.20-5.50) X10*6/uL Hgb 12.0 (12.0-16.0) g/dl Hct 35.8 L (37.0-47.0) % MCV 85.4 (80.0-98.0) fL MCH 28.6 (27.0-33.0) pg MCHC 33.5 (31.0-35.0) g/dl RDW 13.1 (11.0-16.0) % Plt Count 264 (160-400) X10*3/uL MPV 9.4 (9.4-12.3) fL Immature Gran % (Auto) 0.5 H (0.0-0.4) % Neut % (Auto) 72.5 (45-73) % Lymph % (Auto) 19.5 L (20-40) % [place] % (Auto) 6.0 (2-11) % Eos % (Auto) 1.3 (0-4) % Baso % (Auto) 0.2 (0-2) % Lymph # (Auto) 1.7 (1.2-4.9) X10*3/uL [place] # (Auto) 0.5 (0.1-1.2) X10*3/uL Eos # (Auto) 0.1 (0.0-0.4) X10*3/uL Baso # (Auto) 0.0 (0.0-0.2) X10*3/uL Abs Immat Gran (auto) 0.04 H (0.00-0.03) X10*3/uL Absolute Neuts (auto) 6.3 (2.0-8.3) x10*3/uL Absolute Nucleated RBC 0.000 (0.0-0.012) X10*3/uL Nucleated RBC % (auto) 0.0 (0.0-0.2) /100WBC PT 11.1 (11.1-13.3) SEC INR 0.9 (0.9-1.1) Sodium 140 (135-145) mmol/L Potassium 4.3 (3.3-5.1) mmol/L Chloride 106 (96-108) mmol/L Carbon Dioxide 27 (22-29) mmol/L Anion Gap 11 L (12-20) BUN 16 (9-16) mg/dL Creatinine 0.77 (0.5-1.4) mg/dL Estim Creat Clear Calc 73.6 Estimated GFR > 60 Random Glucose 134 H (60-115) mg/dL Calcium 9.8 (8.4-10.2) mg/dL Total Bilirubin 0.4 (0.0-1.0) mg/dL AST 18 (5-31) U/L ALT 22 (0-31) U/L Alkaline Phosphatase 83 (39-117) U/L Troponin I High Sens < 2.7 (<3.5-17.0) ng/L Total Protein 7.5 (6.5-8.0) g/dL Albumin 4.4 (3.5-5.0) g/dL Independent Interpretation I performed an independent interpretation of an: EKG and Plain X-Ray Radiology Impression Radiologist Impression: Normal appearance of the cardiomediastinal silhouette. No focal airspace opacities, pleural effusion or pneumothorax. No pulmonary edema. Bony structures are unremarkable. XR/XR chest 2V IMPRESSION: No acute cardiopulmonary findings. Prescription Management I considered prescription management with: Other (Second blood pressure medication) Critical Care Time Critical Care Time Critical Care Time: Yes Total Critical Care Time: 45 Attestation: I have personally provided critical care time. Time includes review of lab data, radiology results, discussion with consultants, and monitoring for potential decompensation. Intervention performed as documented. Discharge Plan Discharge Clinical Impression: Hypertension Patient Disposition: Home, Self-Care Instructions: Chronic Hypertension (ED) Additional Instructions: Please follow-up with your primary care physician tomorrow. If you have any worsening or new symptoms, please return to the emergency room or call 911 Prescriptions: No Action lorazepam [Ativan] 1 mg tablet 1 mg PO BEDTIME PRN (Reason: anxiety) Qty: 5 0RF potassium chloride 20 mEq packet 20 meq PO DAILY Qty: 5 0RF cefuroxime axetil 250 mg tablet 250 mg PO BID 7 Days Qty: 14 0RF phenazopyridine [Pyridium] 200 mg tablet 200 mg PO TID Qty: 6 0RF nitrofurantoin monohyd/m-cryst [Macrobid] 100 mg capsule 100 mg PO Q12H 5 Days Qty: 10 0RF Rx Instructions: must administer with a meal/food lisinopril 40 mg tablet 40 mg PO DAILY hydroxyzine HCl 50 mg tablet 50 mg PO BID metformin 500 mg tablet 500 mg PO BID baclofen 20 mg tablet 20 mg PO TID omeprazole 20 mg capsule,delayed release(DR/EC) 20 mg PO DAILY glipizide 2.5 mg tablet extended release 24hr 2.5 mg PO DAILY atorvastatin 20 mg tablet 20 mg PO DAILY
[2023-11-27 20:01] VITALS: BP 123/84; PULSE 63; RESP 16; TEMP 36.9; O2SAT 98; BMI 26.6
--- NOTE | 2023-11-27 20:04 | ECG_ITS ---
Test Reason : HYPERTENSION Blood Pressure : / mmHG Vent. Rate : 059 BPM Atrial Rate : 059 BPM P-R Int : 156 ms QRS Dur : 096 ms QT Int : 422 ms P-R-T Axes : 023 -02 033 degrees QTc Int : 417 ms Sinus bradycardia Otherwise normal ECG When compared with ECG of 10-JUN-2023 13:50, No significant change was found Referred By: Tiffany Rea Electronically Signed By:YULIA SCHULTE MD
[2023-11-27 20:21] LABS: MANUAL DIFF FLAG NO
[2023-11-27 20:28] LABS: Basophils Percent Auto 0.2 % (0-2); Eosinophils Absolute Auto 0.1 X10*3/uL (0.0-0.4); Eosinophils Percent Auto 1.3 % (0-4); Hematocrit 35.8 % (37.0-47.0); Imm Gran Abs Auto 0.04 X10*3/uL (0.00-0.03); Imm Gran Pct Auto 0.5 % (0.0-0.4); Lymphocytes Absolute Auto 1.7 X10*3/uL (1.2-4.9); Lymphocytes Percent Auto 19.5 % (20-40); Mean Corpuscular HGB Conc 33.5 g/dl (31.0-35.0); Mean Corpuscular Hemoglobin 28.6 pg (27.0-33.0); Mean Corpuscular Volume 85.4 fL (80.0-98.0); Mean Platelet Volume 9.4 fL (9.4-12.3); Monocytes Absolute Auto 0.5 X10*3/uL (0.1-1.2); Neutrophils Absolute Auto 6.3 x10*3/uL (2.0-8.3); Neutrophils Percent Auto 72.5 % (45-73); Platelet Count 264 X10*3/uL (160-400); Red Blood Count 4.19 X10*6/uL (4.20-5.50); Red Cell Distribution Width 13.1 % (11.0-16.0); White Blood Count 8.7 X10*3/uL (4.8-10.8)
[2023-11-27 20:30] LABS: INTERNATIONAL NORM RATIO 0.9 (0.9-1.1); Prothrombin Time 11.1 SEC (11.1-13.3)
[2023-11-27 20:36] LABS: Alanine Aminotransferase 22 U/L (0-31); Albumin Level 4.4 g/dL (3.5-5.0); Alkaline Phosphatase 83 U/L (39-117); Anion Gap 11 (12-20); Aspartate Amino Transferase 18 U/L (5-31); Bilirubin Total 0.4 mg/dL (0.0-1.0); Blood Urea Nitrogen 16 mg/dL (9-16); Calcium 9.8 mg/dL (8.4-10.2); Carbon Dioxide 27 mmol/L (22-29); Chloride 106 mmol/L (96-108); Creatinine Clr Calc Pharmacy 73.6; Estimated Glomerular Filt Rate > 60; Glucose Random 134 mg/dL (60-115); Potassium 4.3 mmol/L (3.3-5.1); Sodium 140 mmol/L (135-145); Total Protein 7.5 g/dL (6.5-8.0)
[2023-11-27 20:45] LABS: Troponin-I High Sensitivity < 2.7 ng/L (<3.5-17.0)
[2023-11-28 01:19] VITALS: BP 168/88; PULSE 66; RESP 20; TEMP 37; O2SAT 95
[2023-11-28 02:14] VITALS: BP 157/91; PULSE 58
[2023-11-28 04:30] VITALS: BP 195/100; PULSE 60
[2023-11-28] MEDS: amLODIPine Besylate 10 MG TABLET PO (04:31)
[2023-11-28 05:15] VITALS: BP 156/82; PULSE 64; RESP 18
[2023-11-28 05:56] VITALS: BP 156/82; PULSE 64; RESP 18; TEMP 36.6; O2SAT 99
== END 2023-11-28 05:58 | disposition home or self-care (01) ==
PROVIDERS: Registered Nurse Emergency; Emergency Provider Emergency Medicine; PCP Internal Medicine
DX: F41.1 Generalized anxiety disorder (principal); F43.0 Acute stress reaction; R00.1 Bradycardia, unspecified; I10 Essential (primary) hypertension; Z79.899 Other long term (current) drug therapy
CPT/HCPCS: 36415; 71046; 80053; 84484; 85025; 85610; 93005; 99283; 99284

== ENCOUNTER → 2023-11-27 20:04 | Outpatient (BNV) | payer MEDICAID, SELFPAY | PROVIDERS: Emergency Provider Emergency Medicine; PCP Internal Medicine; Visit Provider Internal Medicine Cardiovascular Disease | DX: I10 Essential (primary) hypertension (principal) | CPT/HCPCS: 93010 ==

== ENCOUNTER 2024-02-12 05:54 | Emergency (ER) | payer MEDICAID, SELFPAY ==
--- NOTE | 2024-02-12 | ECG_ITS ---
Test Reason : EPIGASTRIC PAIN Blood Pressure : / mmHG Vent. Rate : 061 BPM Atrial Rate : 061 BPM P-R Int : 152 ms QRS Dur : 090 ms QT Int : 430 ms P-R-T Axes : 017 -01 043 degrees QTc Int : 432 ms Normal sinus rhythm Normal ECG When compared with ECG of 27-NOV-2023 20:08, No significant change was found Referred By: Generic ED Physician Electronically Signed By:YULIA SCHULTE MD
[2024-02-12 05:58] VITALS: BP 138/85; PULSE 64; RESP 16; TEMP 36.7; O2SAT 99; BMI 27.0
[2024-02-12 06:24] LABS: MANUAL DIFF FLAG NO
[2024-02-12 06:28] LABS: Basophils Percent Auto 0.3 % (0-2); Eosinophils Absolute Auto 0.1 X10*3/uL (0.0-0.4); Eosinophils Percent Auto 1.8 % (0-4); Hematocrit 37.1 % (37.0-47.0); Hemoglobin 12.7 g/dl (12.0-16.0); Imm Gran Abs Auto 0.02 X10*3/uL (0.00-0.03); Imm Gran Pct Auto 0.3 % (0.0-0.4); Lymphocytes Absolute Auto 2.2 X10*3/uL (1.2-4.9); Lymphocytes Percent Auto 35.1 % (20-40); Mean Corpuscular HGB Conc 34.2 g/dl (31.0-35.0); Mean Corpuscular Hemoglobin 29.1 pg (27.0-33.0); Mean Corpuscular Volume 85.1 fL (80.0-98.0); Mean Platelet Volume 9.7 fL (9.4-12.3); Monocytes Absolute Auto 0.6 X10*3/uL (0.1-1.2); Monocytes Percent Auto 9.1 % (2-11); Neutrophils Absolute Auto 3.3 x10*3/uL (2.0-8.3); Neutrophils Percent Auto 53.4 % (45-73); Platelet Count 265 X10*3/uL (160-400); Red Blood Count 4.36 X10*6/uL (4.20-5.50); White Blood Count 6.1 X10*3/uL (4.8-10.8)
--- NOTE | 2024-02-12 06:35 | ED_ITS ---
HPI - Abdominal Pain General Chief Complaint: Abdominal Pain Stated Complaint: blood pressure high, pain in rib cage Time Seen by Provider: 02/12/24 06:28 Source: patient Mode of arrival: ambulatory Limitations: no limitations History of Present Illness ED Provider: Destini Lara HPI narrative: 63-year-old female with history of HTN, HLD, T2DM, GERD presents for evaluation of epigastric pain this 0500 this morning. The pain woke her from sleep, is constant and sharp, radiates to her back and diffusely into her abdomen. She took her blood pressure at home and it was elevated to 172/106, she took 1.5 of her lisinopril 40mg, then came here. Still having the epigastric pain. Denies chest pain, headache, or shortness of breath. Denies nausea, vomiting, diarrhea, bloody stools, or urinary symptoms. Denies fevers or chills. Does not drink alcohol. Has not taken any medications this morning besides her lisinopril. Did not have pain last night when going to bed, drank almond milk for the first time ever last night and believes that is contributing to her pain. MD elicited complaint: abdominal pain Pertinent past history: none Onset (ago): hour(s) (2) Pain Consistency: constant Location: epigastric Quality: sharp Radiation: back and other (diffuse abdomen) Migration to: no migration Exacerbating factors: nothing Relieving factors: nothing Associated symptoms: denies other symptoms Related Data Home Medications ?Medication ?Instructions ?Recorded ?Confirmed atorvastatin 20 mg tablet 20 mg PO DAILY 08/06/21 08/06/21 baclofen 20 mg tablet 20 mg PO TID 08/06/21 08/06/21 glipizide 2.5 mg tablet, extended 2.5 mg PO DAILY 08/06/21 08/06/21 release 24 hr hydroxyzine HCl 50 mg tablet 50 mg PO BID 08/06/21 08/06/21 lisinopril 40 mg tablet 40 mg PO DAILY 08/06/21 08/06/21 metformin 500 mg tablet 500 mg PO BID 08/06/21 08/06/21 omeprazole 20 mg capsule,delayed 20 mg PO DAILY 08/06/21 08/06/21 release Previous Rx's ?Medication ?Instructions ?Recorded lorazepam 1 mg tablet (Ativan) 1 mg PO BEDTIME PRN anxiety #5 tabs 09/19/20 nitrofurantoin 100 mg PO Q12H 5 days #10 caps 06/08/23 monohydrate/macrocrystals 100 mg capsule (Macrobid) phenazopyridine 200 mg tablet 200 mg PO TID 6 doses #6 tabs 06/08/23 (Pyridium) potassium chloride 20 mEq oral 20 meq PO DAILY #5 ea 06/10/23 packet cefuroxime axetil 250 mg tablet 250 mg PO BID 7 days #14 tabs 06/12/23 Allergies Allergy/AdvReac Type Severity Reaction Status Date / Time No Known Allergies Allergy Verified 02/12/24 06:02 Review of Systems Review of Systems Yes all other systems are reviewed and are negative [facility] Past Medical History Medical History Anxiety High cholesterol Hypertension Diabetes Social History Social History Alcohol intake: never Smoked in Last 30 Days: No Use of substances other than those prescribed or required for medical reasons: No Advance Directives: No Advance Directives Information Provided: Yes Do you have a plan to hurt others: No Plan Patient : No Physical Exam ED Vital Signs: Vital Signs - 24 hr 02/12/24 05:58 02/12/24 08:15 Temperature 98.0 F Pulse Rate 64 58 Respiratory Rate 16 16 Blood Pressure 138/85 138/77 Pulse Oximetry 99 99 Oxygen Delivery Method Room Air Room Air BMI result Body Mass Index 27.0 Appearance: Awake, alert, Oriented X3. Lying in bed, appears uncomfortable. Head: normocephalic, atraumatic. Eyes: Pupils equal, round and reactive to light. Neck: Normal inspection. Neck supple. CVS: Normal heart rate and rhythm. Pulses normal. Respiratory: No respiratory distress. Lungs clear to auscultation bilaterally, no adventitious lung sounds appreciated. Abdomen: Nondistended. Normoactive +BS x4. Soft, tender to palpation in epigastric area with voluntary guarding, otherwise diffusely tender without guarding, no rebound. Skin: Skin warm and dry. Normal skin color. Normal skin turgor. No rashes. Extremities: No lower extremity edema. No joint swelling. Neuro/psych: Oriented X 3. No motor deficit. No sensory deficit. CN II-XII grossly intact. Normal speech and cognition. Medical Decision Making Medical Decision Making [facility] Narrative: 63-year-old female with history of HTN, HLD, T2DM, GERD presents for evaluation of epigastric pain this 0500 this morning. The pain woke her from sleep, is constant and sharp, radiates to her back and diffusely into her abdomen. She took her blood pressure at home and it was elevated to 172/106, she took 1.5 of her lisinopril 40mg, then came here. On arrival to the ED, vital signs were all within normal limits, blood pressure 138/85. Initial workup included EKG, CBC, chemistry, troponin, lipase, and urinalysis. CBC within normal limits, no leukocytosis, no anemia. Chemistry nonconcerning for electrolyte disturbance, normal renal function, normal liver function. EKG negative for ischemic changes, initial troponin <2.7. Lipase within normal limits at 27, low suspicion for pancreatitis. On exam abdomen is soft, she has tenderness to palpation in the epigastric region with voluntary guarding as well as diffuse abdominal tenderness without guarding. Normal cardiac and respiratory exam. Pain responded partially to GI cocktail. She feels better. Tolerating PO. At this time patiient is stable for discharge home, PPI, dietary modifications. return precautions discussed Differential Diagnosis Differential Diagnoses: The differential diagnosis associated with the presentation includes ACS, abnormal presentation pancreatitis GERD gastritis anxiety Admission/Observation Consideration of admission/observation: Escalation of care including admission/observation considered Lab Data [facility] Lab Attestation statement: I reviewed the patient's lab results. Mild hyperglycemia without anion gap, no leukocytosis, normal LFT 02/12/24 06:13 02/12/24 06:13 Labs: Lab Results 02/12/24 02/12/24 Range/Units 06:13 08:22 WBC 6.1 (4.8-10.8) X10*3/uL RBC 4.36 (4.20-5.50) X10*6/uL Hgb 12.7 (12.0-16.0) g/dl Hct 37.1 (37.0-47.0) % MCV 85.1 (80.0-98.0) fL MCH 29.1 (27.0-33.0) pg MCHC 34.2 (31.0-35.0) g/dl RDW 13.0 (11.0-16.0) % Plt Count 265 (160-400) X10*3/uL MPV 9.7 (9.4-12.3) fL Immature Gran % (Auto) 0.3 (0.0-0.4) % Neut % (Auto) 53.4 (45-73) % Lymph % (Auto) 35.1 (20-40) % [place] % (Auto) 9.1 (2-11) % Eos % (Auto) 1.8 (0-4) % Baso % (Auto) 0.3 (0-2) % Lymph # (Auto) 2.2 (1.2-4.9) X10*3/uL [facility] # (Auto) 0.6 (0.1-1.2) X10*3/uL Eos # (Auto) 0.1 (0.0-0.4) X10*3/uL Baso # (Auto) 0.0 (0.0-0.2) X10*3/uL Abs Immat Gran (auto) 0.02 (0.00-0.03) X10*3/uL Absolute Neuts (auto) 3.3 (2.0-8.3) x10*3/uL Absolute Nucleated RBC 0.000 (0.0-0.012) X10*3/uL Nucleated RBC % (auto) 0.0 (0.0-0.2) /100WBC Sodium 141 (135-145) mmol/L Potassium 3.4 D (3.3-5.1) mmol/L Chloride 107 (96-108) mmol/L Carbon Dioxide 24 (22-29) mmol/L Anion Gap 13 (12-20) BUN 18 H (9-16) mg/dL Creatinine 0.83 (0.5-1.4) mg/dL Estim Creat Clear Calc 68.8 Estimated GFR > 60 Random Glucose 158 H (60-115) mg/dL Calcium 9.7 (8.4-10.2) mg/dL Total Bilirubin 0.7 (0.0-1.0) mg/dL AST 30 (5-31) U/L ALT 23 (0-31) U/L Alkaline Phosphatase 81 (39-117) U/L Troponin I High Sens < 2.7 (<3.5-17.0) ng/L Total Protein 7.2 (6.5-8.0) g/dL Albumin 4.4 (3.5-5.0) g/dL Lipase 27 (8-78) U/L Urine Color Yellow Urine Appearance Clear Urine pH 5.5 (5.0-9.0) Ur Specific [place] 1.020 (1.005-1.025) Urine Protein Negative (Neg-Trace) mg/dL Urine Glucose (UA) Negative (Negative) mg/dL Urine Ketones Negative (Negative) mg/dL Urine Blood Negative (Negative) Urine Nitrite Negative (Negative) Ur Leukocyte Esterase Small (1+) H (Negative) Urine RBC 0-2 (0-2) /HPF Urine WBC 6-10 H (0-5) /HPF Ur Squamous Epith Cells 0-2 (0-2) /HPF Urine Bacteria 4+ (None Seen) Hyaline Casts 3-5 (0-2) /LPF External Record Review External record reviewed: Office record, Outpatient record, Prior outpatient labs and Prior outpatient radiology Tests considered The following testing was considered but not selected: considered CT scan of the abdomen Prescription Management I considered prescription management with: Pain Medication Chronic Conditions Patient?s care impacted by: Diabetes and Hypertension Medications Administered Discontinued Medications Generic Name Dose Route Start Last Admin Trade Name Freq PRN Reason Stop Dose Admin Al Hydroxide/Mg Hydroxide 30 ml 02/12/24 06:43 02/12/24 06:51 Magnesium Hydrox/Alum Hydrox 30 Ml Oral.Susp PO 02/12/24 06:44 30 ml ONCE ONE Administration Belladonna Alkaloids/Phenobarbital 10 ml 02/12/24 06:43 02/12/24 06:51 Phenobarb/Hyoscy/Atropine/Scop 10 Ml Elixir PO 02/12/24 06:44 10 ml ONCE ONE Administration Ketorolac Tromethamine 15 mg 02/12/24 07:26 02/12/24 07:58 Ketorolac Tromethamine 15 Mg/Ml Vial IVPUSH 02/12/24 07:27 15 mg ONCE ONE Administration Lidocaine HCl 15 ml 02/12/24 06:43 02/12/24 06:51 Lidocaine Hcl Viscous 2 % 15 Ml Solution MUCOUS MEM 02/12/24 06:44 15 ml ONCE ONE Administration Critical Care Time Critical Care Time Critical Care Time: No Discharge Plan Discharge Clinical Impression: Abdominal pain Qualifiers: Abdominal location: epigastric Qualified Code(s): R10.13 - Epigastric pain Patient Disposition: Home, Self-Care Instructions: Gastritis (DC), Abdominal Pain (ED) Additional Instructions: Your lab workup today was unremarkable. Your pain is most likely due to gastritis which is and irritation and inflammation of your stomach lining. Continue your omeprazole Stick to a bland diet. Avoid foods high in acid, avoid alcohol and NSAID medications like Aleve, Motrin, Advil or ibuprofen. Follow up with your doctor as needed. Follow up with GI doctor if you symptoms persist despite dietary modifications and medication. If you develop new or worsening symptoms call 911 or come back to the ER for further evaluation. Prescriptions: No Action lorazepam [Ativan] 1 mg tablet 1 mg PO BEDTIME PRN (Reason: anxiety) Qty: 5 0RF potassium chloride 20 mEq packet 20 meq PO DAILY Qty: 5 0RF cefuroxime axetil 250 mg tablet 250 mg PO BID 7 Days Qty: 14 0RF phenazopyridine [Pyridium] 200 mg tablet 200 mg PO TID Qty: 6 0RF nitrofurantoin monohyd/m-cryst [Macrobid] 100 mg capsule 100 mg PO Q12H 5 Days Qty: 10 0RF Rx Instructions: must administer with a meal/food lisinopril 40 mg tablet 40 mg PO DAILY hydroxyzine HCl 50 mg tablet 50 mg PO BID metformin 500 mg tablet 500 mg PO BID baclofen 20 mg tablet 20 mg PO TID omeprazole 20 mg capsule,delayed release(DR/EC) 20 mg PO DAILY glipizide 2.5 mg tablet extended release 24hr 2.5 mg PO DAILY atorvastatin 20 mg tablet 20 mg PO DAILY Referrals: [facility] [Provider Group] Nancy Su MD [Primary Care Provider] - Print Language: Thai
[2024-02-12 06:38] LABS: Alanine Aminotransferase 23 U/L (0-31); Albumin Level 4.4 g/dL (3.5-5.0); Alkaline Phosphatase 81 U/L (39-117); Anion Gap 13 (12-20); Aspartate Amino Transferase 30 U/L (5-31); Bilirubin Total 0.7 mg/dL (0.0-1.0); Blood Urea Nitrogen 18 mg/dL (9-16); Calcium 9.7 mg/dL (8.4-10.2); Carbon Dioxide 24 mmol/L (22-29); Chloride 107 mmol/L (96-108); Creatinine Clr Calc Pharmacy 68.8; Estimated Glomerular Filt Rate > 60; Glucose Random 158 mg/dL (60-115); Lipase 27 U/L (8-78); Potassium 3.4 mmol/L (3.3-5.1); Sodium 141 mmol/L (135-145); Total Protein 7.2 g/dL (6.5-8.0)
[2024-02-12 06:44] LABS: Troponin-I High Sensitivity < 2.7 ng/L (<3.5-17.0)
[2024-02-12] MEDS: Magnesium Hydrox/Alum Hydrox 30 ML ORAL.SUSP PO (06:51)
[2024-02-12] MEDS: Lidocaine HCl Viscous 2 % 15 ML SOLUTION MUCOUS MEM (06:51)
[2024-02-12] MEDS: PHENobarb/Hyoscy/Atropine/Scop 10 ML ELIXIR PO (06:51)
[2024-02-12] MEDS: Ketorolac Tromethamine 15 MG/ML VIAL IVPUSH (07:58)
[2024-02-12 08:15] VITALS: BP 138/77; PULSE 58; RESP 16; O2SAT 99
[2024-02-12 08:28] LABS: Appearance Urine Clear; Color Urine Yellow; Glucose Urine UA Negative (Negative); Leukocyte Esterase Urine Small (1+) (Negative); Nitrite Urine Negative (Negative); PH 5.5 (5.0-9.0); UMIC TRIGGER UACC YES; Urine Blood Negative (Negative); Urine Ketones Negative (Negative); Urine Protein Negative (Neg-Trace)
[2024-02-12 08:31] LABS: Bacteria Urine 4+ (None Seen); RBC Urine 0-2 /HPF (0-2); Squamous Epithelial Cell Urine 0-2 /HPF (0-2); UACC Culture Trigger YES
[2024-02-12 08:49] VITALS: BP 131/92; PULSE 61; RESP 18; TEMP 36.7; O2SAT 98
== END 2024-02-12 08:54 | disposition home or self-care (01) ==
PROVIDERS: Emergency Provider Emergency Medicine; PCP Internal Medicine
DX: R10.13 Epigastric pain (principal); M54.50 Low back pain, unspecified; I10 Essential (primary) hypertension; Z79.899 Other long term (current) drug therapy
CPT/HCPCS: 36415; 80053; 81001; 83690; 84484; 85025; 87086; 87088; 87186; 93005; 96374; 99284; 99285; J1885

== ENCOUNTER → 2024-02-12 06:07 | Outpatient (BNV) | payer MEDICAID, SELFPAY | PROVIDERS: Emergency Provider Emergency Medicine; PCP Internal Medicine; Visit Provider Internal Medicine Cardiovascular Disease | DX: I10 Essential (primary) hypertension (principal); R13.10 Dysphagia, unspecified | CPT/HCPCS: 93010 ==

== ENCOUNTER 2024-02-12 12:20 | Emergency (ER) | payer MEDICAID, SELFPAY ==
--- NOTE | 2024-02-12 12:23 | ED.ABDPAIN ---
HPI - Abdominal Pain General Chief Complaint: Abdominal Pain Stated Complaint: Gastric Pain Was here this AM D/C @ 0844 Time Seen by Provider: 02/12/24 13:31 Source: patient Mode of arrival: ambulatory Limitations: no limitations History of Present Illness HPI narrative: 63-year-old female with history of HTN, HLD, T2DM, GERD presents for evaluation of recurrent epigastric pain. She reports she was treated earlier this morning, here in this ED, for similar pains with a negative workup, given a GI cockail and discharged home pain free. She reports that once she returned home but she her ?normal breakfast? fo coffee, boiled egg, and toast and symptoms began again. She had one episode of vomiting. She states she took tums with no relief in symptoms prompting her to return for re-evaluation. She describes the pain as a sharp epigastric pain that radiates to her back. Pertinent positives and negatives discussed HPI. Related Data Home Medications ?Medication ?Instructions ?Recorded ?Confirmed atorvastatin 20 mg tablet 20 mg PO DAILY 08/06/21 08/06/21 baclofen 20 mg tablet 20 mg PO TID 08/06/21 08/06/21 glipizide 2.5 mg tablet, extended 2.5 mg PO DAILY 08/06/21 08/06/21 release 24 hr hydroxyzine HCl 50 mg tablet 50 mg PO BID 08/06/21 08/06/21 lisinopril 40 mg tablet 40 mg PO DAILY 08/06/21 08/06/21 metformin 500 mg tablet 500 mg PO BID 08/06/21 08/06/21 omeprazole 20 mg capsule,delayed 20 mg PO DAILY 08/06/21 08/06/21 release Previous Rx's ?Medication ?Instructions ?Recorded lorazepam 1 mg tablet (Ativan) 1 mg PO BEDTIME PRN anxiety #5 tabs 09/19/20 nitrofurantoin 100 mg PO Q12H 5 days #10 caps 06/08/23 monohydrate/macrocrystals 100 mg capsule (Macrobid) phenazopyridine 200 mg tablet 200 mg PO TID 6 doses #6 tabs 06/08/23 (Pyridium) potassium chloride 20 mEq oral 20 meq PO DAILY #5 ea 06/10/23 packet cefuroxime axetil 250 mg tablet 250 mg PO BID 7 days #14 tabs 06/12/23 aluminum-mag hydroxide-simethicone 5 ml PO 5XD PRN indigestion #3,000 02/12/24 200 mg-200 mg-20 mg/5 mL oral susp mL (Antacid) lidocaine HCl 2 % mucosal solution 1 appl mucous membrane QID PRN 02/12/24 (Lidocaine Viscous) pain #100 mL ondansetron 4 mg disintegrating 4 mg PO Q6H PRN nausea and 02/12/24 tablet vomiting #20 tabs Allergies Allergy/AdvReac Type Severity Reaction Status Date / Time No Known Allergies Allergy Verified 02/12/24 12:27 Review of Systems Review of Systems Yes all other systems are reviewed and are negative [facility] Past Medical History Medical History Anxiety High cholesterol Hypertension Diabetes Social History Social History Alcohol intake: never Advance Directives: No Advance Directives Information Provided: No Physical Exam ED Vital Signs: Vital Signs - 24 hr 02/12/24 12:24 Temperature 97.8 F Pulse Rate 60 Respiratory Rate 16 Blood Pressure 133/72 Pulse Oximetry 97 Oxygen Delivery Method Room Air BMI result Body Mass Index 27.0 Nursing notes and vital signs reviewed. GENERAL APPEARANCE: A&0 x 4, generally well appearing, no acute distress HENMT: Normal to inspection, atraumatic, face symmetrical. Normal external ears, nose, and oropharynx clear. EYE: PERRLA, EOM intact, structures appear normal NECK: Supple without stiffness or restricted ROM. HEART: Normal rate and regular rhythm, normal S1/S2, no M/R/G LUNGS: LS CTA, moving air well. Able to speak in complete sentences. No crackles, wheezes, or rhonchi auscultated BACK: No CVAT, no obvious deformity ABDOMEN: TTP epigastric region, soft EXTREMITIES: Moving all extremities without difficulty. Normal capillary refill. NEUROLOGICAL: Alert and oriented, moving all 4 extremities with equal strength. CN not formally tested but appearing grossly intact. Observed to ambulate with normal gait. Cognition normal SKIN: Warm and dry without any lesions, rash, or visible sores Course Course Course Narrative: This is a rapid medical exam completed by Tiffany [place]: Additional HPI, ROS, PE not included below will be deferred to primary provider. Seen here this morning and discharged around 8:30 am for complaints of epigastric pain with a negative workup. Got a GI cocktail with good relief of pain. When home and had coffee, a boiled egg, and toast and symptoms increased with one episode of vomiting. Medical Decision Making Medical Decision Making [facility] Narrative: Old records reviewed for previous imaging, lab studies, ECGs, and notes. Work up from earlier today showing no leukocytosis, organ dysfunction, evidence of pancreatitis or hepatitis. Troponin undetectable and EKG NSR without ischemia or ectopy, per my interpretation. Patient was assessed the emergency department with no acute distress or toxicity noted. As pt had an extensive workup earlier today and there is no change in pt's concerning symptoms I do not believe further blood work or imaging needed at this time. Zofran, Maalox, and viscous lidocaine given for management of continued abdominal pain with good effect. Patient is safe for discharge at this time with plan for [id number] Tylenol and/or NSAID such as ibuprofen or naproxen for fever/discomfort with dosing as per packaging. HPI, PE, diagnostics, and plan discussed with patient and family with no unanswered questions at this time. Strict return precautions given to return to the emergency department with new, worsening, or concerning emergent symptoms. Recommended to follow-up with there primary care provider in 24-48 hours for further treatment and management. Differential Diagnosis Differential Diagnoses: The differential diagnosis associated with the presentation includes but not limited to gastritis, gastroenteritis, sbo, perforation, acs, peptic ulcer disease, gerd, pancreatitis, hepatitis, cholecystitis Lab Data [facility] Lab Attestation statement: I reviewed the patient's lab results. External Record Review External record reviewed: Prior outpatient labs Tests considered The following testing was considered but not selected: CT abd/pelvis Prescription Management I considered prescription management with: Pain Medication Chronic Conditions Patient?s care impacted by: Diabetes and Hypertension Medications Administered Discontinued Medications Generic Name Dose Route Start Last Admin Trade Name Freq PRN Reason Stop Dose Admin Al Hydroxide/Mg Hydroxide 30 ml 02/12/24 12:26 02/12/24 12:42 Magnesium Hydrox/Alum Hydrox 30 Ml Oral.Susp PO 02/12/24 12:27 30 ml ONCE ONE Administration Lidocaine HCl 15 ml 02/12/24 12:26 02/12/24 12:42 Lidocaine Hcl Viscous 2 % 15 Ml Solution MUCOUS MEM 02/12/24 12:27 15 ml ONCE ONE Administration Ondansetron HCl 4 mg 02/12/24 12:26 02/12/24 12:28 Ondansetron Odt 4 Mg Tab.Jamie PALMERU 02/12/24 12:27 4 mg ONCE ONE Administration Discharge Plan Discharge Clinical Impression: Gastritis Patient Disposition: Home, Self-Care Instructions: Gastritis (ED), Diet for Stomach Ulcers and Gastritis (ED) Prescriptions: New alum-mag hydroxide-simeth [Antacid] 200-200-20 mg/5 mL suspension 5 ml PO 5XD PRN (Reason: indigestion) Qty: 3000 0RF Rx Instructions: administer between meals and at bedtime lidocaine HCl [Lidocaine Viscous] 2 % solution 1 appl mucous membrane QID PRN (Reason: pain) Qty: 100 0RF ondansetron 4 mg tablet,disintegrating 4 mg PO Q6H PRN (Reason: nausea and vomiting) Qty: 20 0RF No Action lorazepam [Ativan] 1 mg tablet 1 mg PO BEDTIME PRN (Reason: anxiety) Qty: 5 0RF potassium chloride 20 mEq packet 20 meq PO DAILY Qty: 5 0RF cefuroxime axetil 250 mg tablet 250 mg PO BID 7 Days Qty: 14 0RF phenazopyridine [Pyridium] 200 mg tablet 200 mg PO TID Qty: 6 0RF nitrofurantoin monohyd/m-cryst [Macrobid] 100 mg capsule 100 mg PO Q12H 5 Days Qty: 10 0RF Rx Instructions: must administer with a meal/food lisinopril 40 mg tablet 40 mg PO DAILY hydroxyzine HCl 50 mg tablet 50 mg PO BID metformin 500 mg tablet 500 mg PO BID baclofen 20 mg tablet 20 mg PO TID omeprazole 20 mg capsule,delayed release(DR/EC) 20 mg PO DAILY glipizide 2.5 mg tablet extended release 24hr 2.5 mg PO DAILY atorvastatin 20 mg tablet 20 mg PO DAILY Print Language: Turkish
[2024-02-12 12:24] VITALS: BP 133/72; PULSE 60; RESP 16; TEMP 36.6; O2SAT 97; BMI 27.0
[2024-02-12] MEDS: Ondansetron ODT 4 MG TAB.RAPDIS TRANSLINGU (12:28)
[2024-02-12] MEDS: Magnesium Hydrox/Alum Hydrox 30 ML ORAL.SUSP PO (12:42)
[2024-02-12] MEDS: Lidocaine HCl Viscous 2 % 15 ML SOLUTION MUCOUS MEM (12:42)
[2024-02-12 13:39] VITALS: BP 133/72; PULSE 60; RESP 16; TEMP 36.6; O2SAT 97
== END 2024-02-12 13:40 | disposition home or self-care (01) ==
PROVIDERS: Emergency Provider Emergency Medicine; PCP Internal Medicine
DX: K29.70 Gastritis, unspecified, without bleeding (principal); N39.0 Urinary tract infection, site not specified; R10.13 Epigastric pain; Z79.899 Other long term (current) drug therapy
CPT/HCPCS: 36415; 80053; 81001; 83690; 84484; 85025; 87086; 87088; 87186; 93005; 96374; 99282; 99283; 99284; J1885

== ENCOUNTER 2024-04-25 08:47 | Outpatient (REF) | payer MEDICAID, SELFPAY ==
[2024-04-25 11:16] LABS: MANUAL DIFF FLAG NO
[2024-04-25 11:24] LABS: Basophils Percent Auto 0.4 % (0-2); Eosinophils Absolute Auto 0.1 X10*3/uL (0.0-0.4); Eosinophils Percent Auto 1.1 % (0-4); Hematocrit 38.2 % (37.0-47.0); Imm Gran Abs Auto 0.01 X10*3/uL (0.00-0.03); Imm Gran Pct Auto 0.2 % (0.0-0.4); Lymphocytes Absolute Auto 1.8 X10*3/uL (1.2-4.9); Lymphocytes Percent Auto 31.9 % (20-40); Mean Corpuscular Hemoglobin 29.5 pg (27.0-33.0); Mean Corpuscular Volume 86.8 fL (80.0-98.0); Mean Platelet Volume 9.9 fL (9.4-12.3); Monocytes Absolute Auto 0.4 X10*3/uL (0.1-1.2); Monocytes Percent Auto 7.2 % (2-11); Neutrophils Absolute Auto 3.4 x10*3/uL (2.0-8.3); Neutrophils Percent Auto 59.2 % (45-73); Platelet Count 255 X10*3/uL (160-400); Red Cell Distribution Width 13.5 % (11.0-16.0); White Blood Count 5.7 X10*3/uL (4.8-10.8)
[2024-04-25 11:38] LABS: Estimated Average Glucose 108 mg/dL; Hemoglobin A1c % 5.4 % (<6.0)
[2024-04-25 11:44] LABS: Alanine Aminotransferase 17 U/L (0-31); Albumin Level 4.4 g/dL (3.5-5.0); Alkaline Phosphatase 67 U/L (39-117); Anion Gap 11 (12-20); Aspartate Amino Transferase 17 U/L (5-31); Bilirubin Total 0.7 mg/dL (0.0-1.0); Blood Urea Nitrogen 14 mg/dL (9-16); Calcium 9.9 mg/dL (8.4-10.2); Carbon Dioxide 27 mmol/L (22-29); Chloride 106 mmol/L (96-108); Cholesterol 142 mg/dL (<200); Estimated Glomerular Filt Rate > 60; Glucose Random 96 mg/dL (60-115); HDL Cholesterol 39 mg/dL (>40); LDL Cholesterol Calculated 88 mg/dL (<100); Potassium 3.6 mmol/L (3.3-5.1); Sodium 140 mmol/L (135-145); Total Protein 7.3 g/dL (6.5-8.0); Triglycerides 78 mg/dL (<150)
[2024-04-25 12:02] LABS: Creatinine Urine 125.11 mg/dL; Microalbum/Creatinine Ratio Ur 16.7 ug/mg cr (<30)
[2024-04-25 12:06] LABS: Reflex LDLD? No
== END 2024-04-25 08:48 | disposition home or self-care (01) ==
LOC: HO.HHCL 08:47
PROVIDERS: Visit Provider Internal Medicine
DX: E11.9 Type 2 diabetes mellitus without complications (principal)
CPT/HCPCS: 36415; 80053; 80061; 82043; 82570; 83036; 85025

== ENCOUNTER 2024-05-13 14:05 | Outpatient (REF) | payer MEDICAID, SELFPAY ==
--- NOTE | ~2024-05-13 | MM_ITS ---
EXAMINATION: MM SCREENING DIGITAL BREAST TOMOSYNTHESIS, BILATERAL CLINICAL INFORMATION: Screening. Asymptomatic. COMPARISON: Mammography: Comparison is made with available priors TECHNIQUE: Digital breast mammography with tomosynthesis is performed in both the craniocaudal and mediolateral oblique views along with computer-aided detection (CAD). FINDINGS: There are scattered areas of fibroglandular density (ACR BI-RADS breast composition Category b). There are no significant masses, abnormal calcifications, or other abnormalities. MM/MM tomosynthesis screening BI IMPRESSION: No mammographic evidence of malignancy. ASSESSMENT: BI-RADS BI-RADS 1 - Negative RECOMMENDATION: Routine annual mammography screening. 1 year F/U This examination should not preclude the clinical evaluation of a suspicious palpable abnormality. This patient's information was entered into a reminder system with a target due date for their next mammogram. Electronically signed by: Elida Irene DO 05/24/2024 10:44 AM EDT
== END 2024-05-13 14:06 | disposition home or self-care (01) ==
LOC: HO.MAMMO 14:05
PROVIDERS: Visit Provider Internal Medicine
DX: Z12.31 Encounter for screening mammogram for malignant neoplasm of breast (principal)
CPT/HCPCS: 77063; 77067

== ENCOUNTER → 2024-05-13 14:30 | Outpatient (BNV) | payer MEDICAID, SELFPAY | PROVIDERS: Visit Provider Internal Medicine | DX: Z12.31 Encounter for screening mammogram for malignant neoplasm of breast (principal) | CPT/HCPCS: 77063; 77067 ==

== ENCOUNTER 2024-06-12 18:21 | Outpatient (REF) | payer MEDICAID, SELFPAY ==
[2024-06-13 11:34] LABS: Bacterial Vaginosis PCR NEGATIVE (Negative); Candida Group PCR NOT DETECTED (Not Detect); Candida glab krusei PCR NOT DETECTED (Not Detect); Trichomonas vaginalis PCR NOT DETECTED (Not Detect)
== END 2024-06-12 18:22 | disposition home or self-care (01) ==
LOC: HO.LNP 18:21
PROVIDERS: Visit Provider Internal Medicine
DX: N89.8 Other specified noninflammatory disorders of vagina (principal)
CPT/HCPCS: 0352U

== ENCOUNTER 2024-12-19 14:13 | Outpatient (REF) | payer MEDICAID, SELFPAY ==
[2024-12-19 16:31] LABS: Anion Gap 12 (12-20)
[2024-12-19 16:36] LABS: Alanine Aminotransferase 19 U/L (0-31); Albumin Level 4.5 g/dL (3.5-5.0); Aspartate Amino Transferase 38 U/L (5-31); Bilirubin Total 0.6 mg/dL (0.0-1.0); Blood Urea Nitrogen 19 mg/dL (9-16); Calcium 9.8 mg/dL (8.4-10.2); Carbon Dioxide 27 mmol/L (22-29); Chloride 105 mmol/L (96-108); Cholesterol 166 mg/dL (<200); Estimated Glomerular Filt Rate > 60; Glucose Random 69 mg/dL (60-115); HDL Cholesterol 41 mg/dL (>40); LDL Cholesterol Calculated 95 mg/dL (<100); Potassium 4.7 mmol/L (3.3-5.1); Sodium 139 mmol/L (135-145); Total Protein 7.7 g/dL (6.5-8.0); Triglycerides 150 mg/dL (<150)
[2024-12-19 16:46] LABS: Alkaline Phosphatase 79 U/L (39-117)
--- OUTSIDE RECORDS SUMMARY | 2024-12-19 16:46 | XMS_ITS | Encounter Summary ---
Author Organization [employer] Address [address] [place] [address] Care Team Providers Care Commercial Lines Account Executive Name Role Phone Nancy Su MD Primary Care Provide r Reason for Visit * Reason Comments Med Refill Encounter Details Date Type Department Care Team ([facility] Contact Info) Description 08/17/2023 Refill [facility] [address] [place] [address] Name, MD [address] [place] [address] Chronic pain syndrome Social History Tobacco Use Types Packs/Day Years Used Date Smoking Tobacco: Never Passive Smoke Exposure: Never Smokeless Tobacco: Never Alcohol Use Standard Drinks/Week Comments Never 0 (1 standard drink = 0.6 oz pur e alcohol) Depression Answer Date Recorded Patient Health Questionnaire-9 Score 0 03/30/2023 Housing Stability Answer Date Recorded What is your housing situation today? I have tito pulido 06/12/[address] you li ve. Do you have problems with any of the following? None of the above 06/12/2023 Food Insecurity Answer Date Recorded Within the past 12 months, y ou worried that your food would run out before you got money to buy more: Never True 06/12/2023 Within the past 12 months,th e food you bought just didn't last and you didn't have enough money to get more: Never True Transportation Answer Date Recorded In the past 12 months, has l ack of transportation kept you from medical appts, meetings, work or from getting things needed for daily living? No 06/12/2023 Utilities Answer Date Recorded In the past 12 months, has t he electric, gas, oil or water company threatened to shut off services in your home? No 06/12/2023 Depression Answer Date Recorded Patient Health Questionnaire-2 Score 0 03/30/2023 Comments Unknown Sex and Gender Information Value Date Recorded Sex Assigned at Female 06/27/2022 10:14 AM EDT Legal Sex Female 10:14 AM EDT Gender Identity Female 06/27/2022 10:14 AM EDT Sexual Orientation Choose not to disclose 2021 10:14 AM EDT documented as of this encounter Plan of Treatment Upcoming Encounters Date Type Department Care Team (Late st Contact Info) Description 03/20/2025 1:45 PM EDT Office Visit [facility] [address] [place] [phone] Nancy Su MD [address] [place] [phone] documented as of this encounter Visit Diagnoses Diagnosis Chronic pain syndrome documented in this encounter Additional Health Concerns Assessment Noted Time PHQ-9 Depression Total Score: 0 03/30/20 23 1:48 PM EDT documented as of this encounter Care Teams [employer] Account Executive Relationship Specialty Start Date End Date Nancy Su MD [address] [place] [id number] PCP - General Family Medicine 04/05/19 Genie Arana Salesperson NecktiesLaundry Manager 11/29/23 documented as of this encounter
--- OUTSIDE RECORDS SUMMARY | 2024-12-19 16:46 | XMS_ITS | Encounter Summary ---
Author Organization [employer] Address [address] [facility] 7t [place] [address] Care Team Providers Care Six Pack Packer Name Role Phone Nancy Su MD Primary Care Provide r Reason for Visit * Reason Comments Med Change Request Encounter Details Date Type Department Care Team ([facility] Contact Info) Description 04/25/2024 Refill [facility] [address] [place] [address] Nancy Su MD [address] [place] [address] Primary hypertension Social History Tobacco Use Types Packs/Day Years Used Date Smoking Tobacco: Never Passive Smoke Exposure: Never Smokeless Tobacco: Never Alcohol Use Standard Drinks/Week Comments Never 0 (1 standard drink = 0.6 oz pur e alcohol) Depression Answer Date Recorded Patient Health Questionnaire-9 Score 0 11/23/2023 Patient Health Questionnaire-9 Score 0 11/23/2023 Last PHQ-9: Questionnaire Data Not on file 0 11/23/2023 Housing Stability Answer Date Recorded What is your housing situation today? I have tito pulido 11/23/[address] you li ve. Do you have problems with any of the following? I am not sure 11/23/2023 Food Insecurity Answer Date Recorded Within the [...] from getting things needed for daily living? I am not sure 11/23/2023 Utilities Answer Date Recorded In the past 12 months, has t he electric, gas, oil or water company threatened to shut off services in your home? No 06/12/2023 Depression Answer Date Recorded Patient Health Questionnaire-2 Score 0 11/23/2023 Comments Unknown Sex and Gender Information Value Date Recorded Sex Assigned at Female 06/27/2022 10:14 AM EDT Legal Sex Female 10:14 AM EDT Gender Identity Female 06/27/2022 10:14 AM EDT Sexual Orientation Choose not to disclose 2021 10:14 AM EDT documented as of this encounter Miscellaneous Notes * Telephone Encounter - Mala Brower - 04/26/2024 9:55 AM EDT DME RX for Blood Pressure Monitor generated and placed on providers desk for signature. documented in this encounter Plan of Treatment Upcoming Encounters Date Type Department Care Team (Late st Contact Info) Description 03/20/2025 1:45 PM EDT Office Visit [facility] [address] [place] [address] Nancy Su MD [address] [place] [address] documented as of this encounter Visit Diagnoses Diagnosis Primary hypertension Unspecified essential hypertension documented in this encounter Additional Health Concerns Assessment Noted Time PHQ-9 Depression Total Score: 0 11/23/19 24 1:36 PM EDT documented as of this encounter Care Teams Six Pack Packer Relationship Specialty Start Date End Date Nancy Su MD [address] [place] [address] PCP - General Family Medicine 04/05/19 Genie Arana Marble Cutter OperatorPsychology Clinician 11/29/23 documented as of this encounter
--- OUTSIDE RECORDS SUMMARY | 2024-12-19 16:46 | XMS_ITS | Encounter Summary ---
Author Organization [employer] Address [address] [facility] 7 [place] [address] Care Team Providers Care Badger Distiller Operator Name Role Phone Nancy Su MD Primary Care Provide r Reason for Visit * Reason Comments Med Refill Encounter Details Date Type Department Care Team ([facility] st Contact Info) Description 04/06/2024 Refill [facility] [address] [place] [address] Nancy Su MD [address] [place] [address] Heartburn; Hypertension, unspecified type; High cholesterol; Constipation, unspecified constipation type Social History Tobacco Use Types Packs/Day Years [...] Description 03/20/2025 1:45 PM EDT Office Visit [facility] [address] [place] [address] Nancy Su MD [address] [place] [address] documented as of this encounter Visit Diagnoses Diagnosis Heartburn Hypertension, unspecified type High cholesterol Pure hypercholesterolemia Constipation, unspecified constipation type documented in this encounter Additional Health Concerns Assessment Noted Time PHQ-9 Depression Total Score: 0 11/23/19 24 1:36 PM EDT documented as of this encounter Care Teams Badger Distiller Operator Relationship Specialty Start Date End Date Nancy Su MD [address] [place] [address] PCP - General Family Medicine 04/05/19 Genie Arana Cork Pressing Machine OperatorTemple Meat Cutter 11/29/23 documented as of this encounter
--- OUTSIDE RECORDS SUMMARY | 2024-12-19 16:46 | XMS_ITS | Encounter Summary ---
Author Organization [employer] Address [address] [facility] 7 [place] [address] Care Team Providers Care Well Blower Name Role Phone Nancy Su MD Primary Care Provide r Reason for Visit * Reason Onset Date Comments Chart Prep 12/18/2024 Encounter Details Date Type Department Care Team ([facility] Contact Info) Description 12/18/2024 Telephone [facility] [address] [place] [address] Nancy Su MD [address] [place] [address] Chart Prep Social History Tobacco Use Types Packs/Day Years Used Date Smoking Tobacco: Never Passive Smoke Exposure: Never Smokeless Tobacco: Never Alcohol Use Standard Drinks/Week Comments Never 0 (1 standard drink = 0.6 oz pur e alcohol) Depression Answer Date Recorded Patient Health Questionnaire-9 Score 0 12/19/2024 Patient Health Questionnaire-9 Score 0 12/19/2024 Last PHQ-9: Questionnaire Data Not on file 0 12/19/2024 Housing Stability Answer Date Recorded What is your housing situation today? I have tito pulido 12/10/[address] you li ve. Do you have problems with any of the following? None of the above 12/10/2024 Food Insecurity Answer Date Recorded Within the past 12 months, y ou worried that your food would run out before you got money to buy more: Never True 12/10/2024 Within the past 12 months,th e food you bought just didn't last and you didn't have enough money to get more: Never True Transportation Answer Date Recorded In the past 12 months, has l ack of transportation kept you from medical appts, meetings, work or from getting things needed for daily living? No 12/10/2024 Utilities Answer Date Recorded In the past 12 months, has t he electric, gas, oil or water company threatened to shut off services in your home? No 12/10/2024 Depression Answer Date Recorded Patient Health Questionnaire-2 Score 0 12/19/2024 Internet Access Answer Date Recorded Internet Access Q1 No 12/10/2024 Internet Access Q2 Not on file 12/10/2024 Comments Unknown Sex and Gender Information Value Date Recorded Sex Assigned at Female 06/27/2022 10:14 AM EDT Legal Sex Female 10:14 AM EDT Gender Identity Female 06/27/2022 10:14 AM EDT Sexual Orientation Choose not to disclose 2021 10:14 AM EDT documented as of this encounter Miscellaneous Notes * Telephone Encounter - Zenaida Tucker [place] - 12/18/2024 3:34 PM EDT Chart Prep Labs: done Images: not applicable Referrals: not applicable Vaccines due: yes Screenings: pap smear and foot exam Overdue care gaps: A1c, Glucose, PHQ-9, REID-7, and Disability screen documented in this encounter Plan of Treatment Upcoming Encounters Date Type Department Care Team (Late st Contact Info) Description 03/20/2025 1:45 PM EDT Office Visit [facility] [address] [place] [address] Nancy Su MD [address] [place] [address] documented as of this encounter Visit Diagnoses Not on filedocumented in this encounter Additional Health Concerns Assessment Noted Time PHQ-9 Depression Total Score: 0 11/23/19 1:36 PM EDT documented as of this encounter Care Teams Well Blower Relationship Specialty Start Date End Date Nancy Su MD [address] [place] [address] PCP - General Family Medicine 04/05/19 Genie Arana Bessemer RegulatorAgronomy Manager 11/29/23 documented as of this encounter
--- OUTSIDE RECORDS SUMMARY | 2024-12-19 16:46 | XMS_ITS | Encounter Summary ---
Author Organization [employer] Address [address] [facility] 7t [place] [address] Care Team Providers Care Splunk Developer Name Role Phone Nancy uS MD Primary Care Provide r Encounter Details Date Type Department Care Team ([facility] Contact Info) Description 12/19/2024 1:45 PM EDT Office Visit [facility] [address] [place] [address] Nancy Su MD [address] [place] [address] Fibromyalgia (Primary Dx); Type 2 diabetes mellitus without complication, without long-term current use of insulin (CMS/HCC); Mixed anxiety and depressive disorder Social History Tobacco Use Types Packs/Day Years [...] AM EDT documented as of this encounter Last Filed Vital Signs Vital Sign Reading Time Taken Comments Blood Pressure 126/70 12/19/2024 1:53 PM EDT Pulse 70 12/19/2024 1:53 PM EDT Temperature 36.1 ??C (96.9 ??F) 12/19/2024 1:53 PM ED T Respiratory Rate 21 12/19/2024 1:53 PM EDT Oxygen Saturation 99% 12/19/2024 1:53 PM EDT Inhaled Oxygen Concentration - - Weight 73 kg (161 lb) 12/19/2024 1:53 PM EDT Height 165.1 cm (5' 5 ) 12/19/2024 1:53 PM EDT Body Mass Index 26.79 12/19/2024 1:53 PM EDT documented in this encounter Progress Notes * Nancy Chahal MD - 12/19/2024 1:45 PM EDT SUBJECTIVE: Ijeoma Woodson is a 64 y.o. year old female who presents for Chronic Disease Management . Acute Concerns: None Social History Social History Narrative Not on file Patient Active Problem List Diagnosis Vascular insufficiency Plantar fasciitis Sciatica Palpitations Osteoarthritis Mixed anxiety and depressive disorder Migraine Hypertensive disorder Hyperlipidemia Gastroesophageal reflux disease Diverticulitis of sigmoid colon Fibromyalgia Chronic low back pain Type 2 diabetes mellitus without complication, without long-term current use of insulin ([facility]) Encounter for screening mammogram for malignant neoplasm of breast Health care maintenance Colon cancer screening Vaginal itching Family History Problem Relation Name Age of Onset Glaucoma Mother underwent laser treatment Review of Systems Constitutional: Negative. HENT: Negative. Respiratory: Negative. Cardiovascular: Negative. Neurological: Negative. OBJECTIVE: Vitals: 12/19/24 1353 BP: 126/70 BP Location: Left arm Patient Position: Sitting BP Cuff Size: Adult Pulse: 70 Resp: 21 Temp: 96.9 ??F (36.1 ??C) TempSrc: Oral SpO2: 99% Weight: 161 lb (73 kg) Height: 5' 5 (1.651 m) Physical Exam Constitutional: Appearance: Normal appearance. Cardiovascular: Rate and Rhythm: Normal rate and regular rhythm. Pulmonary: Effort: Pulmonary effort is normal. Breath sounds: Normal breath sounds. Abdominal: General: Abdomen is flat. Palpations: Abdomen is soft. Musculoskeletal: Right lower leg: No edema. Left lower leg: No edema. Neurological: Mental Status: She is alert. Follow Up: Follow up in about 3 months (around 03/20/2025) for chronic conditions . Current Outpatient Medications on File Prior to Visit Medication Sig Dispense Refill Acetaminophen Extra Strength 500 MG tablet Take 2 tablets by mouth every 8 (eight) hours if needed (take for mil-moderate pain). 60 tablet 1 Alcohol Swabs (Alcohol Pads) 70 % pads 1 each 2 times daily. Use as directed 100 each 11 atorvastatin (Lipitor) 20 MG tablet TAKE 1 TABLET BY MOUTH EVERY DAY IN THE MORNING 90 tablet 1 Blood Glucose Monitoring Suppl (ONE TOUCH ULTRA 2) w/Device kit USE TO TEST BLOOD SUGAR TWICE A DAY1 kit 0 Blood Pressure Monitoring (Blood Pressure Cuff) misc Use daily as prescribed 1 each 0 Diclofenac Sodium 1 % gel APPLY 1 EACH TOPICALLY EVERY 12 (TWELVE) HOURS IF NEEDED (APPLY ON AFFECTED AREA NEEDED). 100 g 1 docusate sodium (Colace) 100 MG capsule TAKE 1 CAPSULE BY MOUTH TWICE A DAY 180 capsule 1 Estrogens Conjugated (Premarin) 0.625 MG/GM cream Insert 0.5 g into the vagina at bedtime. 30 g 1 fluconazole (Diflucan) 150 MG tablet Take one tablet then after 72 hours take another one tablet 1 tablet 0 fluconazole (Diflucan) 150 MG tablet Take 1 tab today and 1 next week 2 tablet 0 fluticasone (Flonase Allergy Relief) 50 MCG/ACT nasal spray Administer 1 spray into each nostril Once per day. Shake gently. Before first use, prime pump. After use, clean tip and replace cap. 16 g 12 FreeStyle lancets 1 each by Other route 2 times daily. Test blood sugar twice day 100 each 11 GaviLAX 17 GM/SCOOP powder MIX & TAKE 17GM BY MOUTH ONCE PER DAY. 510 g 2 glucose blood (OneTouch Ultra) test strip USE TO TEST BLOOD SUGAR TWICE A DAY 100 each 3 lisinopril 40 MG tablet TAKE 1 TABLET BY MOUTH EVERY DAY IN THE MORNING 90 tablet 1 metFORMIN (Glucophage) 500 MG tablet TAKE 1 TABLET BY MOUTH WITH BREAKFAST AND EVENING MEAL 180 tablet 1 nystatin (Mycostatin) 314041 UNIT/GM powder Apply topically 2 times daily. 60 g 3 nystatin (Mycostatin) cream Apply topically 2 times daily. 30 g 2 omeprazole (PriLOSEC) [address] capsule TAKE 1 CAPSULE BY MOUTH EVERY DAY BEFORE A MEAL 90 capsule 1 OneTouch Delica Lancets 33G misc USE TO TEST BLOOD SUGAR TWICE A DAY 100 each 3 [DISCONTINUED] hydrOXYzine HCl (Atarax) 50 MG tablet Take 1 tablet (50 mg) by mouth every 8 (eight)hours if needed for itching. 30 tablet 2 No current facility-administered medications on file prior to visit. Problem List Items Addressed This Visit Type 2 diabetes mellitus without complication, without long-term current use of insulin ([facility]) Diabetes is: controlled - Lab Results Component Value Date HGBA1C 5.6 12/19/2024 HGBA1C 5.6 09/05/2024 HGBA1C 5.4 04/25/2024 - Lab Results Component Value Date MICROALBUR 21.0 04/25/2024 CREATININE 0.74 04/25/2024 -Changes: None - Diabetic eye exam: Up-to-date - Diabetic foot exam: Up-to-date - Continue lifestyle modifications - Continue current medications - Follow up: 3 months Relevant Orders POCT Glucose (Completed) POCT HGB A1C (Completed) Lipid Panel, Standard Albumin, Random Urine W/Creatinine Comprehensive Metabolic Panel Mixed anxiety and depressive disorder Stable continue with hydroxyzine as needed Relevant Medications hydrOXYzine HCl (Atarax) 50 MG tablet Fibromyalgia - Primary Relevant Medications acetaminophen (Tylenol 8 Hour) 650 MG ER tablet documented in this encounter Miscellaneous Notes * Assessment & Plan Note - Nancy Chahal MD - 12/19/2024 2:46 PM EDT Associated Problem(s): Mixed anxiety and depressive disorder Stable continue with hydroxyzine as needed * Assessment & Plan Note - Nancy Chahal MD - 12/19/2024 2:46 PM EDT Associated Problem(s): Type 2 diabetes mellitus without complication, without long-term current useof insulin ([facility]) Diabetes is: controlled - Lab Results Component Value Date HGBA1C 5.6 12/19/2024 HGBA1C 5.6 09/05/2024 HGBA1C 5.4 04/25/2024 - Lab Results Component Value Date MICROALBUR 21.0 04/25/2024 CREATININE 0.74 04/25/2024 -Changes: None - Diabetic eye exam: Up-to-date - Diabetic foot exam: Up-to-date - Continue lifestyle modifications - Continue current medications - Follow up: 3 months documented in this encounter Plan of Treatment Upcoming Encounters Date Type Department Care Team (Late st Contact Info) Description 03/20/2025 1:45 PM EDT Office Visit [facility] [address] [place] [address] Nancy Su MD [address] [place] [address] Pending Results Name Type Priority Associated Diagnoses Date /Time Lipid Panel, Standard Lab Routine Type 2 diabetes mellitus without complication, without long-term current use of insulin (CMS/HCC) 12/19/2024 2:15 PM EDT Comprehensive Metabolic Panel Lab Routine Type 2 diabetes mellitus without complication, without long-term current use of insulin ([facility]) 12/19/2024 2:15 PM EDT Scheduled Orders Name Type Priority Associated Diagnoses Orde r Schedule Albumin, Random Urine W/Creatinine Lab Routine Type 2 diabetes mellitus without complication, without long-term current use of insulin ([facility]) Expected: 12/19/2024 (Approximate), Expires: 12/19/2025 documented as of this encounter Procedures Procedure Name Priority Date/Time Associated Diagnosis Comments LIPID PANEL, STANDARD Routine 12/19/2024 2:15 PM EDT Type 2 diabetes mellitus without complication, without long-term current use of insulin ([facility]) COMPREHENSIVE METABOLIC PANEL Routine 12/19/2024 2:15 PM EDT Type 2 diabetes mellitus without complication, without long-term current use of insulin ([facility]) POCT GLYCATED HEMOGLOBIN, TOTAL Routine 12/19/2024 1:56 PM EDT Type 2 diabetes mellitus without complication, without long-term current use of insulin ([facility]) POCT GLUCOSE Routine 12/19/2024 1:55 PM EDT Type 2 diabetes mellitus without complication, without long-term current use of insulin ([facility]) documented in this encounter Results * POCT HGB A1C (12/19/2024 1:56 PM EDT) Hemoglobin A1C 5.6 4.0 - 6.0 % QC Media Lot # [id number] Lot# Expiration Date Blood 12/19/2024 1:56 PM EDT Nancy Chahal MD POINT OF CARE TEST EN TER/EDIT ORDERABLES Final Result * POCT Glucose (12/19/2024 1:55 PM EDT) Glucose Blood, POC 80 60 - 200 mg/dL QC Media Lot # [id number] Lot# Expiration Date Blood Capillary blood specimen / Unknown 12/19/2024 1:55 PM EDT us Nancy Chahal MD POINT OF CARE TEST EN TER/EDIT ORDERABLES Final Result documented in this encounter Visit Diagnoses Diagnosis Fibromyalgia- Primary Unspecified myalgia and myositis Type 2 diabetes mellitus without complication, without long-term current use of insulin ([facility]) Mixed anxiety and depressive disorder Dysthymic disorder documented in this encounter Additional Health Concerns Assessment Noted Time PHQ-9 Depression Total Score: 0 12/20/19 25 1:54 PM EDT documented as of this encounter Care Teams Splunk Developer Relationship Specialty Start Date End Date Nancy Su MD [address] [place] [id number] PCP - General Family Medicine 04/05/19 Genie Arana Rap ArtistBoarding House Cook 11/29/23 documented as of this encounter
--- OUTSIDE RECORDS SUMMARY | 2024-12-19 16:46 | XMS_ITS | Encounter Summary ---
Author Organization [employer] Address [address] [facility] 7t [place] [address] Care Team Providers Care Jewelry Engraver Name Role Phone Nancy Su MD Primary Care Provide r Encounter Details Date Type Department Care Team ([facility] Contact Info) Description 07/25/2023 Abstract [facility] [address] [place], [place] [phone] Betsy Case Social History Tobacco Use Types Packs/Day Years Used Date Smoking Tobacco: Never Passive Smoke Exposure: Never Smokeless Tobacco: Never Alcohol Use Standard Drinks/Week Comments Never 0 (1 standard drink = 0.6 oz pur e alcohol) Depression Answer Date Recorded Patient Health Questionnaire-9 Score 0 03/30/2023 Housing Stability Answer Date Recorded What is your housing situation today? I have titozully pulido 06/12/[address] you [...] Description 03/20/2025 1:45 PM EDT Office Visit [facility] [address] [place] [address] Nancy Su MD [address] [place] [address] documented as of this encounter Visit Diagnoses Not on filedocumented in this encounter Additional Health Concerns Assessment Noted Time PHQ-9 Depression Total Score: 0 03/30/20 23 1:48 PM EDT documented as of this encounter Care Teams Jewelry Engraver Relationship Specialty Start Date End Date Nancy Su MD [address] [place] [address] [phone] PCP - General Family Medicine 04/05/19 Genie Arana Show Host/HostessMusical Instrument Supervisor 11/29/23 documented as of this encounter
--- OUTSIDE RECORDS SUMMARY | 2024-12-19 16:46 | XMS_ITS | Encounter Summary ---
Author Organization [employer] Address [address] [facility] 7t [place] [address] Care Team Providers Care Junior Php Developer Name Role Phone Nancy Su MD Primary Care Provide r Encounter Details Date Type Department Care Team (Latest Contact Info) Description 12/19/2024 Travel Social History Tobacco Use Types Packs/Day Years [...] Description 03/20/2025 1:45 PM EDT Office Visit [facility] [address] [place], [place] [phone] Nancy Su MD [address] [place] [address] documented as of this encounter Visit Diagnoses Not on filedocumented in this encounter Additional Health Concerns Assessment Noted Time PHQ-9 Depression Total Score: 0 12/20/19 25 1:54 PM EDT documented as of this encounter Care Teams Junior Php Developer Relationship Specialty Start Date End Date Nancy Su MD [address] [place] [id number] PCP - General Family Medicine 04/05/19 Genie Arana Mortgage Loan SpecialistMaritime Engineer 11/29/23 documented as of this encounter
--- OUTSIDE RECORDS SUMMARY | 2024-12-19 16:46 | XMS_ITS | Encounter Summary ---
Author Organization [employer] Address [address] [facility] 7t [place] [address] Care Team Providers Care Counselor At Law Name Role Phone Nancy Su MD Primary Care Provide r Encounter Details Date Type Department Care Team ([facility] Contact Info) Description 06/07/2023 Abstract [facility] [address] [place] [address] Nancy Su MD [address] [place] [address] Social History Tobacco Use Types Packs/Day Years Used Date Smoking Tobacco: Never Passive Smoke Exposure: Never Smokeless Tobacco: Never Depression Answer Date Recorded Patient Health Questionnaire-9 Score 0 03/30/2023 Housing Stability Answer Date Recorded What is your housing situation today? I have tito pulido 06/04/[address] you li ve. Do you have problems with any of the following? None of the above 06/04/2023 Food Insecurity Answer Date Recorded Within the past 12 months, y ou worried that your food would run out before you got money to buy more: Never True 06/04/2023 Within the past 12 months,th e food you bought just didn't last and you didn't have enough money to get more: Never True 03/2023 Transportation Answer Date Recorded In the past 12 months, has l ack of transportation kept you from medical appts, meetings, work or from getting things needed for daily living? No 06/04/2023 Utilities Answer Date Recorded In the past 12 months, has t he [employer], oil or water company threatened to shut off services in your home? No 06/04/2023 Depression Answer Date Recorded Patient Health Questionnaire-2 [...] Description 03/20/2025 1:45 PM EDT Office Visit [facility] [address] [place] [address] Nancy Su MD [address] [place] [address] documented as of this encounter Visit Diagnoses Not on filedocumented in this encounter Additional Health Concerns Assessment Noted Time PHQ-9 Depression Total Score: 0 03/30/20 23 1:48 PM EDT documented as of this encounter Care Teams Counselor At Law Relationship Specialty Start Date End Date Nancy Su MD [address] [place] [id number] PCP - General Family Medicine 04/05/19 Genie Arana Veterinary Medicine TeacherElectronic Equipment Maint Tech 11/29/23 documented as of this encounter
--- OUTSIDE RECORDS SUMMARY | 2024-12-19 16:46 | XMS_ITS | Encounter Summary ---
Author Organization [employer] Address [address] [place] [address] Care Team Providers Care Neon Sign Worker Name Role Phone Nancy Su MD Primary Care Provide r Reason for Visit * Reason Comments Med Refill Encounter Details Date Type Department Care Team ([facility] Contact Info) Description 09/10/2024 Refill [facility] [address] [place] [address] Nancy Su MD [address] [place] [address] Hypertension, unspecified type; High cholesterol Social History Tobacco Use Types Packs/Day Years [...] Description 03/20/2025 1:45 PM EDT Office Visit [facility] [address] [place] [address] Nancy Su MD [address] [place] [address] documented as of this encounter Visit Diagnoses Diagnosis Hypertension, unspecified type High cholesterol Pure hypercholesterolemia documented in this encounter Additional Health Concerns Assessment Noted Time PHQ-9 Depression Total Score: 0 11/23/19 24 1:36 PM EDT documented as of this encounter Care Teams Neon Sign Worker Relationship Specialty Start Date End Date Nancy Su MD [address] [place] [address] PCP - General Family Medicine 04/05/19 Genie [place] StockerW[employer] Technician 11/29/23 documented as of this encounter
--- OUTSIDE RECORDS SUMMARY | 2024-12-19 16:46 | XMS_ITS | Clinical Summary ---
Author Organization [employer] Address [address] [facility] [address] [place] [address] Care Team Providers Care Web Content Manager Name Role Phone Nancy Su MD Primary Care Provide r Allergies No known active allergies Medications Acetaminophen Extra Strength 500 MG tabletIndications :Chronic bilateral low back pain without sciatica Take 2 tablets by mouth every 8 (eight) hours if needed (take for mil-moderate pain). 60 tablet 1 024 Active Alcohol Swabs (Alcohol Pads) 70 % pads 1 each 2 times daily. Use as directed 100 each Active FreeStyle lancets 1 each by Other route 2 times daily. Test blood sugar twice day 100 each 024 2024 Active docusate sodium (Colace) 100 MG capsuleIndication s:Constipation, unspecified constipation type TAKE 1 CAPSULE BY MOUTH TWICE A DAY 180 capsule 1 Active metFORMIN (Glucophage) 500 MG tabletIndications :Type 2 diabetes mellitus without complication, without long-term current use of insulin ([facility]) TAKE 1 TABLET BY MOUTH WITH BREAKFAST AND EVENING MEAL 180 tablet 1 Active Estrogens Conjugated (Premarin) 0.625 MG/GM creamIndications: Vaginal itching Insert 0.5 g into the vagina at bedtime. 30 g 1 024 Active fluconazole (Diflucan) 150 MG tabletIndications :Vaginal itching Take one tablet then after 72 hours take another one tablet 1 tablet Active fluconazole (Diflucan) 150 MG tablet Take 1 tab today and 1 next week 2 tablet 024 Active nystatin (Mycostatin) 559836 UNIT/GM powder Apply topically 2 times daily. 60 g 3 024 2024 Active nystatin (Mycostatin) cream Apply topically 2 times daily. 30 g 2 024 2024 Active GaviLAX 17 GM/SCOOP powder MIX & TAKE 17GM BY MOUTH ONCE PER DAY. 510 g 2 024 Active Diclofenac Sodium 1 % gelIndications:Os teoarthritis, unspecified osteoarthritis type, unspecified site APPLY 1 EACH TOPICALLY EVERY 12 (TWELVE) HOURS IF NEEDED (APPLY ON AFFECTED AREA NEEDED). 100 g 1 024 Active glucose blood (Innolume Ultra) test stripIndications: Type 2 diabetes mellitus without complication, without long-term current use of insulin ([facility]) USE TO TEST BLOOD SUGAR TWICE A DAY 100 each 3 025 Active Blood Glucose Monitoring Suppl (ONE TOUCH ULTRA 2) w/Device kitIndications:Ty pe 2 diabetes mellitus without complication, without long-term current use of insulin ([facility]) USE TO TEST BLOOD SUGAR TWICE A DAY 1 kit 025 Active TrefisTouch Delica Lancets 33G miscIndications:T ype 2 diabetes mellitus without complication, without long-term current use of insulin ([facility]) USE TO TEST BLOOD SUGAR TWICE A DAY 100 each 3 025 Active fluticasone (Flonase Allergy Relief) 50 MCG/ACT nasal spray Administer 1 spray into each nostril Once per day. Shake gently. Before first use, prime pump. After use, clean tip and replace cap. 16 g 12 025 2025 Active Blood Pressure Monitoring (Blood Pressure Cuff) miscIndications:P rimary hypertension Use daily as prescribed 1 each 025 Active omeprazole (PriLOSEC) [address] capsuleIndication s:Heartburn TAKE 1 CAPSULE BY MOUTH EVERY DAY BEFORE A MEAL 90 capsule 1 025 Active lisinopril 40 MG tabletIndications :Hypertension, unspecified type TAKE 1 TABLET BY MOUTH EVERY DAY IN THE MORNING 90 tablet 1 025 Active atorvastatin (Lipitor) 20 MG tabletIndications :High cholesterol TAKE 1 TABLET BY MOUTH EVERY DAY IN THE MORNING 90 tablet 1 025 Active hydrOXYzine HCl (Atarax) 50 MG tabletIndications :Mixed anxiety and depressive disorder Take 1 tablet (50 mg) by mouth every 8 (eight) hours if needed for itching. 30 tablet 2 025 2024 Active acetaminophen (Tylenol 8 Hour) 650 MG ER tabletIndications :Fibromyalgia Take 1 tablet (650 mg) by mouth every 8 (eight) hours if needed for mild pain. Do not crush, chew, or split. 60 tablet 2 025 2024 Active hydrOXYzine HCl (Atarax) 50 MG tabletIndications :Mixed anxiety and depressive disorder Take 1 tablet (50 mg) by mouth every 8 (eight) hours if needed for itching. 30 tablet 2 024 2024 Discontinued(R eorder (will not trigger notification to Pharmacy)) omeprazole (PriLOSEC) [address] capsuleIndication s:Heartburn TAKE 1 CAPSULE BY MOUTH EVERY DAY BEFORE A MEAL 90 capsule 1 024 2024 Discontinued atorvastatin (Lipitor) 20 MG tabletIndications :High cholesterol Take 1 tablet (20 mg) by mouth in the morning. 90 tablet 1 024 2024 Discontinued lisinopril 40 MG tabletIndications :Hypertension, unspecified type Take 1 tablet (40 mg) by mouth in the morning. 90 tablet 1 024 2024 Discontinued Active Problems Problem Noted Date Diagnosed Date Vaginal itching 06/12/2024 Assessment & Plan (06/12/2024 10:01 AM EDT): Likely vulvovaginal atrophy I will treat for short curse of estrogen cream BV ordered I will also treat empirically for yeast infection Colon cancer screening 04/24/2024 Health care maintenance 09/04/2023 Assessment & Plan (09/04/2023 2:26 PM EST): Patient will get her COVID vaccine at the vaccine clinic She declines PAP smear She reports she mail her colorguard recently Mammogram up to date Type 2 diabetes mellitus wit hout complication, without long-term current use of insulin 03/30/2023 Assessment & Plan (12/19/2024 2:46 PM EDT): Diabetes is: controlled - Lab Results Component Value Date HGBA1C 5.6 12/19/2024 HGBA1C 5.6 09/05/2024 HGBA1C 5.4 04/25/2024 - Lab Results Component Value Date MICROALBUR 21.0 04/25/2024 CREATININE 0.74 04/25/2024 -Changes: None - Diabetic eye exam: Up-to-date - Diabetic foot exam: Up-to-date - Continue lifestyle modifications - Continue current medications - Follow up: 3 months Assessment & Plan (09/05/2024 10:18 AM EST): Diabetes is: controlled - Lab Results Component Value Date HGBA1C 5.6 09/05/2024 HGBA1C 5.4 04/25/2024 HGBA1C 6.0 12/06/2023 - Lab Results Component Value Date MICROALBUR 21.0 04/25/2024 CREATININE 0.74 04/25/2024 -Changes: none - Diabetic eye exam:up to date - Diabetic foot exam:pending - Continue lifestyle modifications - Continue current medications - Follow up: 3 months Assessment & Plan (04/24/2024 2:03 PM EDT): Diabetes is: controlled - Lab Results Component Value Date HGBA1C 6.0 12/06/2023 HGBA1C 6.5 (A) 09/04/2023 HGBA1C 5.5 03/30/2023 - Lab Results Component Value Date MICROALBUR 0.7 06/17/2022 CREATININE 0.83 02/12/2024 -Changes: none - Diabetic eye exam:up to date - Diabetic foot exam:pending - Continue lifestyle modifications - Continue current medications - Follow up: 3 months Assessment & Plan (12/06/2023 2:31 PM EDT): Diabetes is: controlled - Lab Results Component Value Date HGBA1C 6.5 (A) 09/04/2023 HGBA1C 5.5 03/30/2023 HGBA1C 5.3 03/04/2022 - Lab Results Component Value Date MICROALBUR 0.7 06/17/2022 CREATININE 0.77 11/27/2023 -Changes: none - Diabetic eye exam:up to date - Diabetic foot exam:pending - Continue lifestyle modifications - Continue current medications - Follow up: 3 months Assessment & Plan (11/23/2023 2:12 PM EDT): Diabetes is: controlled - Lab Results Component Value Date HGBA1C 6.5 (A) 09/04/2023 HGBA1C 5.5 03/30/2023 HGBA1C 5.3 03/04/2022 - Lab Results Component Value Date MICROALBUR 0.7 06/17/2022 CREATININE 0.76 06/10/2023 -Changes: none - Diabetic eye exam:up to date - Diabetic foot exam:up to date - Continue lifestyle modifications - Continue current medications - Follow up: 3 months Assessment & Plan (09/04/2023 2:25 PM EST): Lab Results Component Value Date HGBA1C 6.5 (A) 09/04/2023 HGBA1C 5.5 03/30/2023 HGBA1C 5.3 03/04/2022 - Lab Results Component Value Date MICROALBUR 0.7 06/17/2022 CREATININE 0.76 06/10/2023 - Diabetic eye exam:up to date - Diabetic foot exam:pending - Continue lifestyle modifications - Continue current medications Assessment & Plan (06/22/2023 3:08 PM EDT): - Lab Results Component Value Date HGBA1C 5.5 03/30/2023 HGBA1C 5.3 03/04/2022 HGBA1C 5.2 03/29/2021 - Lab Results Component Value Date MICROALBUR 0.7 06/17/2022 CREATININE 0.76 06/10/2023 - Continue lifestyle modifications - Continue current medications Assessment & Plan (03/30/2023 3:15 PM EDT): - Lab Results Component Value Date HGBA1C 5.5 03/30/2023 HGBA1C 5.3 03/04/2022 HGBA1C 5.2 03/29/2021 - Lab Results Component Value Date MICROALBUR 0.7 06/17/2022 - Diabetic eye exam: up to date - Continue lifestyle modifications I discontinue her glipizide and advise to take her metformin BID - Encounter for screening mamm ogram for malignant neoplasm of breast 03/30/2023 Vascular insufficiency 03/01/2023 Mixed anxiety and depressive disorder 03/01/2023 Assessment & Plan (12/19/2024 2:46 PM EDT): Stable continue with hydroxyzine as needed Assessment & Plan (03/30/2023 3:15 PM EDT): Controlled c/w hydroxyzine PRN Fibromyalgia 03/01/2023 Chronic low back pain 03/01/2023 Assessment & Plan (03/30/2023 3:15 PM EDT): C/w acetaminophen PRN Hypertensive disorder 09/18/2014 Assessment & Plan (09/05/2024 10:17 AM EST): I advised: - Aerobic exercise to reduce BP. Initial goal of 30 min walk 3-5x/week. Increase as tolerated. - low-sodium diet (goal: <2g/day) and heart healthy diet such as DASH to reduce BP and prevent ASCVD. - Home BP monitoring 1-2 x day with goal of <140/90. - Seek immediate medical attention for chest pain, palpitations, SOB, syncope, or sudden changes in mental status. - Do not change or discontinue current prescriptions without first consulting health care provider Assessment & Plan (04/24/2024 2:03 PM EDT): Controlled, I advise: - Aerobic exercise to reduce BP. Initial goal of 30 min walk 3-5x/week. Increase as tolerated. - low-sodium diet (goal: <2g/day) and heart healthy diet such as DASH to reduce BP and prevent ASCVD. - Home BP monitoring 1-2 x day with goal of <140/90. - Seek immediate medical attention for chest pain, palpitations, SOB, syncope, or sudden changes in mental status. - Do not change or discontinue current prescriptions without first consulting health care provider Assessment & Plan (12/06/2023 2:33 PM EDT): Probably blood pressure was high due to circumstances, today is back to her baseline I advise low Na diet and to take her medication every day I advise to monitor her BP at home if it gets high again report back to me Also I advise if she feels anxious to take her anxiety medication Assessment & Plan (11/23/2023 2:11 PM EDT): - Aerobic exercise to reduce BP. Initial goal of 30 min walk 3-5x/week. Increase as tolerated. - low-sodium diet (goal: <2g/day) and heart healthy diet such as DASH to reduce BP and prevent ASCVD. - Home BP monitoring 1-2 x day with goal of <140/90. - Seek immediate medical attention for chest pain, palpitations, SOB, syncope, or sudden changes in mental status. - Do not change or discontinue current prescriptions without first consulting health care provider Assessment & Plan (09/04/2023 2:24 PM EST): - Aerobic exercise to reduce BP. Initial goal of 30 min walk 3-5x/week. Increase as tolerated. - low-sodium diet (goal: <2g/day) and heart healthy diet such as DASH to reduce BP and prevent ASCVD. - Home BP monitoring 1-2 x day with goal of <140/90. - Seek immediate medical attention for chest pain, palpitations, SOB, syncope, or sudden changes in mental status. - Do not change or discontinue current prescriptions without first consulting health care provider Assessment & Plan (06/22/2023 3:08 PM EDT): - Aerobic exercise to reduce BP. Initial goal of 30 min walk 3-5x/week. Increase as tolerated. - low-sodium diet (goal: <2g/day) and heart healthy diet such as DASH to reduce BP and prevent ASCVD. - Home BP monitoring 1-2 x day with goal of <140/90. - Seek immediate medical attention for chest pain, palpitations, SOB, syncope, or sudden changes in mental status. - Do not change or discontinue current prescriptions without first consulting health care provider Assessment & Plan (03/30/2023 3:14 PM EDT): - Aerobic exercise to reduce BP. Initial goal of 30 min walk 3-5x/week. Increase as tolerated. - low-sodium diet (goal: <2g/day) and heart healthy diet such as DASH to reduce BP and prevent ASCVD. - Home BP monitoring 1-2 x day with goal of <140/90. - Seek immediate medical attention for chest pain, palpitations, SOB, syncope, or sudden changes in mental status. - Do not change or discontinue current prescriptions without first consulting health care provider Plantar fasciitis 06/19/2012 Sciatica 06/19/2012 Palpitations 06/19/2012 Osteoarthritis 06/19/2012 Migraine 06/19/2012 Hyperlipidemia 06/19/2012 Gastroesophageal reflux disease 06/19/2012 Diverticulitis of sigmoid colon 06/19/2012 Encounters Date Type Department Care Team Description 12/19/2024 1:45 PM EDT Office Visit [facility] [address] [place] [phone] Nancy Su MD Fibromyalgia (Primary Dx); Type 2 diabetes mellitus without complication, without long-term current use of insulin ([facility]); Mixed anxiety and depressive disorder 12/19/2024 Travel 12/18/2024 Telephone [facility] [address] [place] [phone] Nancy Su MD Chart Prep 12/10/2024 Patient Outreach [facility] [address] [place] [phone] Nancy Su MD Pre-visit Planning (SDOH screening negative and tobacco screening negative) 12/03/2024 Refill [facility] [address] [place] [address] [phone] Nancy Su MD Heartburn; Hypertension, unspecified type; High cholesterol 09/20/2024 9:00 AM EST Office Visit [facility] [address] [place] [address] [phone] Maria Antonia Agustin DO Essential hypertension (Primary Dx) from Last 3 Months Immunizations Name Administration Dates Next Due Hep B, Adolescent or Pediatric 01/09/2001 Influenza injectable quadrivalent preservative f ree 09/04/2023 Influenza, Split (incl. purified surface antigen ) 09/25/2012 MMR 01/09/2001 Pneumococcal Conjugate PCV 20 09/05/2024 TD (adult), 2 Lf tetanus tox oid, preservative free, adsorbed 01/09/2001 Tdap 10/23/2012 Varicella 01/09/2001 Family History Medical History Relation Name Comments Glaucoma Mother underwent laser treatment Relation Name Status Comments Mother Social History Tobacco Use Types Packs/Day Years Used Date Smoking Tobacco: Never Passive Smoke Exposure: Never Smokeless Tobacco: Never Tobacco Cessation:Counseling Given: Not Answered Alcohol Use Standard Drinks/Week Comments Never 0 [...] not to disclose 2021 10:14 AM EDT Last Filed Vital Signs Vital Sign Reading [...] Mass Index 26.79 12/19/2024 1:53 PM EDT Plan of Treatment Upcoming Encounters Date Type Department Care Team (Late st Contact Info) Description 03/20/2025 1:45 PM EDT Office Visit [facility] [address] [place] [phone] Nancy Su MD [address] [place] [address] Health Maintenance Due Date Last Done Comments CT Colonography 1959 Colonoscopy 1959 FIT 1959 FOBT 1959 Sigmoidoscopy 1959 Diabetes: Foot Exam 1969 Hepatitis C Screening 1977 Pap Smear 1980 Zoster Vaccines (1 of 2) 2009 DTaP/Tdap/Td Vaccines (2 - Td or Tdap) 10/23/2022 10/23/2012, 01/09/2001 Cervical Cancer Screening 02/28/2024 HPV/Cotest 02/28/2024 02/27/2019 COVID-19 Vaccine ( - season) 2024 06/09/2022, 04/30/2021, 04/09/2021 Influenza Vaccine (#1) 2024 09/04/2023, 2012 Diabetes: Urine Protein Screening 04/25/2025 04/25/2024, 06/17/2022 Mammogram 05/13/2025 05/13/2024 Diabetes: Hemoglobin A1C 06/20/2025 025, 09/05/2024, 04/25/2024, Additional history exists Alcohol/Substance Use Screening 09/05/2025 09/05/2024 Eye Exam 11/22/2025 11/23/2023, 10/27, 11/23/2023, Additional history exists SDOH Screening 12/10/2025 12/10/2024 Depression Screening 12/19/2025 12/19/2024, 12/20/19 25 Lipid Panel 12/19/2025 12/19/2024, 03/29, 03/30/2023, Additional history exists Tobacco Screening 12/19/2025 12/19/2024 Colorectal Cancer Screening 04/10/2026 FIT DNA/Cologuard 04/10/2026 04/10/2023 RSV Patients and Patients Aged 60 years or older (1 - 1-dose 75+ series) 2034 Hepatitis B Vaccines Aged Out 01/09/2001 No long er eligible based on patient's age to complete this topic Pneumococcal Vaccine: 50+ Years Completed 09/05/2024 HIB Vaccines Aged Out No longer eligi ble based on patient's age to complete this topic HPV Vaccines Aged Out No longer eligi ble based on patient's age to complete this topic Hepatitis A Vaccines Aged Out No long er eligible based on patient's age to complete this topic IPV Vaccines Aged Out No longer eligi ble based on patient's age to complete this topic Meningococcal Vaccine Aged Out No bear gregg eligible based on patient's age to complete this topic RSV under 20 months Aged Out No longe r eligible based on patient's age to complete this topic Rotavirus Vaccines Aged Out No longer eligible based on patient's age to complete this topic Procedures Procedure Name Priority Date/Time Associated Diagnosis Comments COMPREHENSIVE METABOLIC PANEL Routine 12/19/2024 2:15 PM EDT Type 2 diabetes mellitus without complication, without long-term current use of insulin ([facility]) LIPID PANEL, STANDARD Routine 12/19/2024 2:15 PM EDT Type 2 diabetes mellitus without complication, without long-term current use of insulin ([facility]) POCT GLYCATED HEMOGLOBIN, TOTAL Routine 12/19/2024 1:56 PM EDT Type 2 diabetes mellitus without complication, without long-term current use of insulin ([facility]) POCT GLUCOSE Routine 12/19/2024 1:55 PM EDT Type 2 diabetes mellitus without complication, without long-term current use of insulin ([facility]) BI MAMMOGRAM SCREENING TOMOSYNTHESIS BILATERAL Routine 05/13/2024 2:08 PM EDT Encounter for screening mammogram for malignant neoplasm of breast ALBUMIN, RANDOM URINE W/CREATININE Routine 04/25/2024 8:49 AM EDT Type 2 diabetes mellitus without complication, without long-term current use of insulin ([facility]) ZZZ HISTORICAL HPV MRNA E6/E7 Routine 02/27/2019 11:11 AM EDT from Last 3 Months or Most Recently Relevant to Health Maintenance Results * POCT HGB A1C (12/19/2024 1:56 [...] TEST EN TER/EDIT ORDERABLES Final Result * BI Mammogram Screening Tomosynthesis Bilateral (05/13/2024 2:08 PM EDT) Anatomical Region Laterality Modality Breast Bilateral Mammography 05/13/2024 2:08 PM EDT Narrative 05/24/2024 10:47 AM EDT ? [facility] ? [address] ?[place], [place] [address] ? Mammography Report ? Signed ? Patient: Chintan,Ijeoma ?MR#: [id number] ?? [id number] ? : 1960 ?Acct:[id number] ? Age/Sex: 63 / F ?ADM Date: 05/13/24 ? Loc: HO.MAMMO ? Attending Dr: Nancy Chahal MD ? Ordering Physician: Nancy Su MD ?Results: ?? 1Negative ? Date of Service: 05/13/24 ?Follow Up: 1 Year From Orig ?? inal Mammogram ? Procedure(s): MM tomosynthesis screening BI ?? Accession Number(s): [id number] ? cc: Nancy Su MD ? EXAMINATION: ?? MM SCREENING DIGITAL BREAST TOMOSYNTHESIS, BILATERAL ? CLINICAL INFORMATION: ? Screening. Asymptomatic. ? COMPARISON: ?? Mammography: Comparison is made with available priors ? TECHNIQUE: ?? Digital breast mammography with tomosynthesis is performed in both the ?? craniocaudal and mediolateral oblique views along with computer-aided ?? detection (CAD). ? FINDINGS: ?? There are scattered areas of fibroglandular density (ACR BI-RADS breast ?? composition Category b). ? There are no significant masses, abnormal calcifications, or other ?? abnormalities. ? MM/MM tomosynthesis screening BI ?? IMPRESSION: ?? No mammographic evidence of malignancy. ? ASSESSMENT: ? BI-RADS BI-RADS 1 - Negative ? RECOMMENDATION: ?? Routine annual mammography screening. ? 1 year F/U ? This examination should not preclude the clinical evaluation of a ?? suspicious palpable abnormality. ? This patient's information was entered into a reminder system with a ?? target due date for their next mammogram. ? Electronically signed by: ??Elida Irene DO ??05/24/2024 10:44 AM EDT ? Dictated By: ?Elida Irene DO ? Signed By: ?<Electronically signed by Elida Irene, DO in OV> ? 05/24/24 1044 ? DD/ 1408 ? TD/TT: 05/13/24 1427 ? Risk Management Intern: ? Procedure Note Milena, Ronna - 05/24/2024 [facility] [address] [place] [place], [place] [address] Mammography Report Signed Patient: Zachery Woodson#: [id number] : 9Acct:[id number] Age/Sex: 63 / FADM Date: 05/13/24 Loc: HO.MAMMO Attending Dr: Nancy Chahal MD Ordering Physician: Nancy Su MDResults: 1Negative Date of Service: 05/13/24Follow Up: 1 Year From Orig inal Mammogram Procedure(s): MM tomosynthesis screening BI Accession Number(s): [id number] cc: Nancy Su MD EXAMINATION: MM SCREENING DIGITAL BREAST TOMOSYNTHESIS, BILATERAL CLINICAL INFORMATION: Screening. Asymptomatic. COMPARISON: Mammography: Comparison is made with available priors TECHNIQUE: Digital breast mammography with tomosynthesis is performed in both the craniocaudal and mediolateral oblique views along with computer-aided detection (CAD). FINDINGS: There are scattered areas of fibroglandular density (ACR BI-RADS breast composition Category b). There are no significant masses, abnormal calcifications, or other abnormalities. MM/MM tomosynthesis screening BI IMPRESSION: No mammographic evidence of malignancy. ASSESSMENT: BI-RADS BI-RADS 1 - Negative RECOMMENDATION: Routine annual mammography screening. 1 year F/U This examination should not preclude the clinical evaluation of a suspicious palpable abnormality. This patient's information was entered into a reminder system with a target due date for their next mammogram. Electronically signed by: Elida Irene DO 05/24/2024 10:44 AM EDT Dictated By: Elida Irene DO Signed By: <Electronically signed by Elida Irene DO in OV> 05/24/24 1044 DD/ 1408 TD/TT: 05/13/24 1427 Risk Management Intern: us Nancy Chahal MD IMG BI PROCEDURES Fin al Result * Albumin, Random Urine W/Creatinine (04/25/2024 8:49 AM EDT) Creatinine, Urine 125.11 mg/dL [facility] Microalbumin Urine 21.0 mg/L [facility] Microalbum Creatinine Ratio Ur 16.7 <30 ug/mg cr LABS Comment:Albumin/Creatinine R atio Reference Ranges: Normal: < 30 ug/mg creatinine Microalbuminuria: 30 - 300 ug/mg creatinineClinical Albuminuria: > 300 ug/mg creatinine Urine (Urine, Random) 04/25/2024 8:49 AM EDT 04/25/2024 10:58 AM EDT us Nancy Chahal MD LAB URINE ORDERABLES Final Result LABS [address] [place] [phone] * HPV mRNA E6/E7 (02/27/2019 11:11 AM EDT) HPV mRNA E6/E7 Not Detected NOT DETECTED [facility] Comment: This test was performed using the APTIMA(R) HPV Assay ([employer] This assay detects E6/E7 viral messenger RNA (mRNA) from 14 high-risk HPV types (16,18,31,33,35,39,45,51, 52,56,58,59,66,68). For additional information please refer to: http://education.Promobucket/faq/DWP621v2 (This link is being provided for informational/ educational purposes only.) The analytical performance characteristics of this assay have been determined by [employer] [place], [place]. The modifications have not been cleared or approved by the FDA. This assay has been validated pursuant to the CLIA regulations and is used for clinical purposes. Test Performed by [facility], [employer] [facility], [address] [place] [address] Jack Youssef M.D., Ph.D., Director of Laboratories , CLIA [id number] Please note: ??Effective 05/09/2016, HPV testing will be performed using [employer]'s APTIMA test which targets mRNA. Detecting mRNA instead of DNA, as in older methods, offers significant improvements in specificity. 02/27/2019 11:1 1 AM EDT Sammi Raman CNM HISTORICAL/NON ORDERABLE LABS Final Result [facility] [address] from Last 3 Months or Most Recently Relevant to Health Maintenance Insurance [facility] Care Teams Web Content Manager Relationship Specialty Start Date End Date Nancy Su MD [address] [place] [address] PCP - General Family Medicine 04/05/19 Genie Arana Lute Packer Or ApplierWallpaper Hanger Helper 11/29/23
[2024-12-19 16:52] LABS: Microalbum/Creatinine Ratio Ur 13.9 ug/mg cr (<30)
== END 2024-12-19 14:14 | disposition home or self-care (01) ==
LOC: HO.HHCL 14:13
PROVIDERS: Visit Provider Internal Medicine
DX: E11.9 Type 2 diabetes mellitus without complications (principal)
CPT/HCPCS: 36415; 80053; 80061; 82043; 82570

== ENCOUNTER 2025-02-05 11:45 | Outpatient (REF) | payer MEDICAID, SELFPAY ==
--- NOTE | ~2025-02-05 | XR_ITS ---
EXAMINATION: XR RIBS, RIGHT CLINICAL INFORMATION: R sided rib and shoulder pain s/p fall 5 days ago COMPARISON: November 27, 2023. TECHNIQUE: AP chest. Oblique views, right hemithorax. FINDINGS: No consolidation, pleural effusion or pneumothorax. Cardiomediastinal silhouette size is normal. Mild multilevel thoracic spondylosis. No acute cortical disruption within the ribs of the right hemithorax. No lytic or blastic lesions. XR/XR ribs RT min 3V w CXR1V IMPRESSION: No acute rib fracture. No acute airspace disease. Electronically signed by: Regino Jarvis MD 02/05/2025 12:59 PM EDT
--- NOTE | ~2025-02-05 | XR_ITS ---
EXAMINATION: XR SHOULDER, RIGHT CLINICAL INFORMATION: R sided rib and shoulder pain s/p fall 5 days ago COMPARISON: None available. TECHNIQUE: AP and Y-view projection of the right shoulder. FINDINGS: Degenerative changes in the acromioclavicular joint. No acute cortical disruption or malalignment. No lytic or blastic lesions. XR/XR shoulder RT min 2V IMPRESSION: No acute fracture or dislocation. Electronically signed by: Regino Jarvis MD 02/05/2025 12:58 PM EDT
--- OUTSIDE RECORDS SUMMARY | 2025-02-05 13:29 | XMS_ITS | Clinical Summary ---
Author Organization [facility] ity Address [address] [place] [address] Care Team Providers Care Chemical Radiation Technician Name Role Phone Unavailable Primary Care Provider Unavailabl e Social History Tobacco Use Types Packs/Day Years Used Date Smoking Tobacco: Never Assessed Comments Unknown Sex and Gender Information Value Date Recorded Sex Assigned at Not on file Legal Sex Female 2:09 PM EST Gender Identity Not on file Sexual Orientation Not on file Plan of Treatment Health Maintenance Due Date Last Done Comments Breast Cancer Screening 1959 DTaP,Tdap,and Td Vaccines (1 - Tdap) 1978 Cervical Cancer Screening: P ap Smear 1980 Pneumococcal Vaccine: 50+ Ye ars (1 of 1 - PCV) 2009 Zoster Vaccines (1 of 2) 2009 COVID-19 Vaccine ( - 2023-2 5 season) 2024 Influenza Vaccine (Season Ended) 2025 RSV Immunization Adult Patie nts (1 - 1-dose 75+ series) 2034 HIB Vaccines Aged Out No longer eligi ble based on patient's age to complete this topic HPV Vaccines Aged Out No longer eligi ble based on patient's age to complete this topic Hepatitis A Vaccines Aged Out No long er eligible based on patient's age to complete this topic Hepatitis B Vaccines Aged Out No long er eligible based on patient's age to complete this topic IPV Vaccines Aged Out No longer eligi ble based on patient's age to complete this topic MMR Vaccines Aged Out No longer eligi ble based on patient's age to complete this topic Meningococcal ACWY Vaccine Aged Out N o longer eligible based on patient's age to complete this topic Meningococcal B Vaccine Aged Out No l onger eligible based on patient's age to complete this topic Pneumococcal Vaccine: Pediat rics (0 to 5 Years) and At-Risk Patients (6 to 64 Years) Aged Out No longer eligible b ased on patient's age to complete this topic RSV Immunization Patients Un velasquez 20 months Aged Out No longer eligible b ased on patient's age to complete this topic Varicella Vaccines Aged Out No longer eligible based on patient's age to complete this topic
== END 2025-02-05 11:46 | disposition home or self-care (01) ==
LOC: HO.HHCX 11:45
PROVIDERS: Visit Provider Family Medicine
DX: M25.511 Pain in right shoulder (principal); R07.81 Pleurodynia
CPT/HCPCS: 71101; 73030

== ENCOUNTER → 2025-02-05 11:46 | Outpatient (BNV) | payer MEDICAID, SELFPAY | PROVIDERS: Visit Provider Radiology Diagnostic Radiology | DX: R07.81 Pleurodynia (principal); M25.511 Pain in right shoulder | CPT/HCPCS: 71101; 73030 ==

== ENCOUNTER 2025-06-19 14:57 | Outpatient (REF) | payer OTHER, SELFPAY ==
--- OUTSIDE RECORDS SUMMARY | 2025-06-19 18:49 | XMS_ITS | Encounter Summary ---
Author Organization [employer] Address [address] [facility] [address] [place] [address] Care Team Providers Care Keyseating Machine Set Up Operator Name Role Phone Nancy Su MD Primary Care Provide r Reason for Visit * Reason Comments Med Refill Encounter Details Date Type Department Care Team ([facility] Contact Info) Description 04/06/2024 Refill [facility] [address] [place] [address] Nancy Su MD [address] [place] [address] Heartburn; Hypertension, unspecified type; High cholesterol; Constipation, [...] Care Team (Late st Contact Info) Description 06/26/2025 1:45 PM EDT Office Visit [facility] [address] [place] [phone] Nancy Su MD [address] [place] [address] documented as of this encounter Visit Diagnoses Diagnosis Heartburn Hypertension, unspecified type High cholesterol Pure hypercholesterolemia Constipation, unspecified constipation type documented in this encounter Additional Health Concerns Assessment Noted Time PHQ-9 Depression Total Score: 0 11/23/19 24 1:36 PM EDT documented as of this encounter Care Teams Keyseating Machine Set Up Operator Relationship Specialty Start Date End Date Nancy Su MD [address] [place] [id number] PCP - General Family Medicine 04/05/19 Genie Arana Gamb CutterPhysics Tutor 11/29/23 documented as of this encounter
--- OUTSIDE RECORDS SUMMARY | 2025-06-19 18:49 | XMS_ITS | Encounter Summary ---
Author Organization [employer] Address [address] [facility] [address] [place] [address] Care Team Providers Care Sink Cutter Name Role Phone Nancy Su MD Primary Care Provide r Reason for Visit * Reason Comments Med Change Request Encounter Details Date Type Department Care Team ([facility] Contact Info) Description 04/25/2024 Refill [facility] [address] [place] [address] Nancy Su MD [address] [place] [address] Primary hypertension Social History Tobacco Use Types [...] Description 06/26/2025 1:45 PM EDT Office Visit [facility] [address] [place] [address] Nancy Su MD [address] [place] [address] documented as of this encounter Visit Diagnoses Diagnosis Primary hypertension Unspecified essential hypertension documented in this encounter Additional Health Concerns Assessment Noted Time PHQ-9 Depression Total Score: 0 11/23/19 24 1:36 PM EDT documented as of this encounter Care Teams Sink Cutter Relationship Specialty Start Date End Date Nancy Su MD [address] [place], [place] [phone] PCP - General Family Medicine 04/05/19 Genie Arana Petroleum Inspector SupervisorClinical Transplant Coordinator 11/29/23 documented as of this encounter
--- OUTSIDE RECORDS SUMMARY | 2025-06-19 18:49 | XMS_ITS | Encounter Summary ---
Author Organization [employer] Address [address] [facility] [address] [place] [address] Care Team Providers Care Simulation Technician Name Role Phone Nancy Su MD Primary Care Provide r Reason for Visit * Reason Comments Pre-visit Planning SDOH was already com pleted Encounter Details Date Type Department Care Team ([facility] Contact Info) Description 06/19/2025 Patient Outreach [facility] [address] [place] [address] Nancy Su MD [address] [place] [address] Pre-visit Planning (SDOH was already completed) Social History Tobacco Use Types Packs/Day Years Used Date Smoking Tobacco: Never Passive Smoke Exposure: Never Smokeless Tobacco: Never Alcohol Use Standard Drinks/Week Comments Never 0 (1 standard drink = 0.6 oz pur e alcohol) Depression Answer Date Recorded Patient Health Questionnaire-9 Score 0 03/20/2025 Patient Health Questionnaire-9 Score 0 03/20/2025 Last PHQ-9: Questionnaire Data Not on file 0 03/20/2025 Housing Stability Answer Date Recorded What is [...] Date Recorded Patient Health Questionnaire-2 Score 0 03/20/2025 Internet Access Answer Date Recorded Internet Access Q1 No 12/10/2024 Internet Access Q2 Not on file 12/10/2024 Comments Unknown Sex and Gender Information Value Date Recorded Sex Assigned at Female 06/27/2022 10:14 AM EDT Legal Sex Female 10:14 AM EDT Gender Identity Female 06/27/2022 10:14 AM EDT Sexual Orientation Choose not to disclose 2021 10:14 AM EDT documented as of this encounter Progress Notes * Nona Tucker - 06/19/2025 2:38 PM EDT CC Nona Cosby placed successful outbound call to patient for pre-visit planning. Patient name and confirmed. Patient confirms appt date and time, and has transportation arrangements. Biggest concern for appointment at this time is no concerns. Appropriate screenings completed in anticipation ofappointment. documented in this encounter Plan of Treatment Upcoming Encounters Date Type Department Care Team (Late st Contact Info) Description 06/26/2025 1:45 PM EDT Office Visit [facility] [address] [place] [address] Nancy Su MD [address] [place] [address] documented as of this encounter Visit Diagnoses Not on filedocumented in this encounter Additional Health Concerns Assessment Noted Time PHQ-9 Depression Total Score: 0 03/20/20 25 3:03 PM EDT documented as of this encounter Care Teams Simulation Technician Relationship Specialty Start Date End Date Nancy Su MD [address] [facility] [place] [address] PCP - General Family Medicine 04/05/19 Genie Arana Diamond CleaverResidential Driver 11/29/23 documented as of this encounter
--- OUTSIDE RECORDS SUMMARY | 2025-06-19 18:49 | XMS_ITS | Encounter Summary ---
Author Organization [employer] Address [address] [facility] [address] [place] [address] Care Team Providers Care Media Aid Name Role Phone Nancy Su MD Primary Care Provide r Reason for Visit * Reason Comments Med Refill Encounter Details Date Type Department Care Team ([facility] Contact Info) Description 03/27/2025 Refill [facility] [address] [place], [place] [phone] [facility] [address] [place] [address] Heartburn; High cholesterol Social History Tobacco Use Types [...] Description 06/26/2025 1:45 PM EDT Office Visit [facility] [address] [place] [address] Nancy Su MD [address] [place] [address] documented as of this encounter Visit Diagnoses Diagnosis Heartburn High cholesterol Pure hypercholesterolemia documented in this encounter Additional Health Concerns Assessment Noted Time PHQ-9 Depression Total Score: 0 03/20/20 25 3:03 PM EDT documented as of this encounter Care Teams Media Aid Relationship Specialty Start Date End Date Nancy Su MD [address] [place] [address] PCP - General Family Medicine 04/05/19 Genie Arana Operations And Maintenance ManagerUnishear Operator 11/29/23 documented as of this encounter
--- OUTSIDE RECORDS SUMMARY | 2025-06-19 18:49 | XMS_ITS | Encounter Summary ---
Author Organization [employer] Address [address] [facility] [address] [place] [address] Care Team Providers Care Glass Polisher Name Role Phone Nancy Su MD Primary Care Provide r Reason for Visit * Reason Comments Med Refill Encounter Details Date Type Department Care Team ([facility] Contact Info) Description 09/10/2024 Refill [facility] [address] [place] [address] Nancy Su MD [address] [place] [address] Hypertension, unspecified type; High cholesterol Social History [...] Description 06/26/2025 1:45 PM EDT Office Visit [facility] [address] [place] [phone] Nancy Su MD [address] [place] [phone] documented as of this encounter Visit Diagnoses Diagnosis Hypertension, unspecified type High cholesterol Pure hypercholesterolemia documented in this encounter Additional Health Concerns Assessment Noted Time PHQ-9 Depression Total Score: 0 11/23/19 24 1:36 PM EDT documented as of this encounter Care Teams Glass Polisher Relationship Specialty Start Date End Date Nancy Su MD [address] [place] [id number] PCP - General Family Medicine 04/05/19 Genie Arana Electrical Engineering DraftspersonProtein Specialist 11/29/23 documented as of this encounter
--- OUTSIDE RECORDS SUMMARY | 2025-06-19 18:49 | XMS_ITS | Clinical Summary ---
Author Organization [employer] Address [address] [facility] 7t [place] [address] Care Team Providers Care Ceiling Installer Name Role Phone Nancy Su MD Primary Care Provide r Allergies No known active allergies Medications Acetaminophen Extra Strength 500 MG tabletIndications :Chronic bilateral low back pain without sciatica Take 2 tablets by mouth every 8 (eight) hours if needed (take for mil-moderate pain). 60 tablet 1 024 Active docusate sodium (Colace) 100 MG capsuleIndication s:Constipation, unspecified constipation type TAKE 1 CAPSULE BY MOUTH TWICE A DAY 180 capsule 1 024 Active Estrogens Conjugated (Premarin) 0.625 MG/GM creamIndications: Vaginal itching Insert 0.5 g into the vagina at bedtime. 30 g 1 024 Active fluconazole (Diflucan) 150 MG tabletIndications :Vaginal itching Take one tablet then after 72 hours take another one tablet 1 tablet Active fluconazole (Diflucan) 150 MG tablet Take 1 tab today and 1 next week 2 tablet Active nystatin (Mycostatin) 943198 UNIT/GM powder Apply topically 2 times daily. 60 g 3 024 2024 Active nystatin (Mycostatin) cream Apply topically 2 times daily. 30 g 2 024 2024 Active GaviLAX 17 GM/SCOOP powder MIX & TAKE 17GM BY MOUTH ONCE PER DAY. 510 g 2 024 Active Blood Glucose Monitoring Suppl (ONE TOUCH ULTRA 2) w/Device kitIndications:Ty pe 2 diabetes mellitus without complication, without long-term current use of insulin ([facility]) USE TO TEST BLOOD SUGAR TWICE A DAY 1 kit 025 Active OneTouch Delica Lancets 33G miscIndications:T ype 2 diabetes mellitus without complication, without long-term current use of insulin ([facility]) USE TO TEST BLOOD SUGAR TWICE A [...] daily as prescribed 1 each 025 Active hydrOXYzine HCl (Atarax) 50 MG tabletIndications :Mixed anxiety and depressive disorder Take 1 tablet (50 mg) by mouth every 8 (eight) hours if needed for itching. 30 tablet 2 025 Active baclofen (Lioresal) 10 MG tablet Take 0.5 tablets (5 mg) by mouth if needed in the morning, at noon, and at bedtime for muscle spasms. 30 tablet 1 025 Active Diclofenac Sodium 1 % gelIndications:Os teoarthritis, unspecified osteoarthritis type, unspecified site Apply 1 each topically if needed in the morning, at noon, in the evening, and at bedtime (pain). 150 g 3 025 Active naproxen (Naprosyn) 500 MG tablet TAKE 1 TABLET (500 MG) BY MOUTH IN THE MORNING AND AT BEDTIME NEEDED FOR MILD PAIN 30 tablet 025 Active Alcohol Swabs (Alcohol Pads) 70 % pads USE DIRECTED TWICE DAILY 100 each 11 025 Active OneTouch Ultra test stripIndications: Type 2 diabetes mellitus without complication, without long-term current use of insulin ([facility]) USE TO TEST BLOOD SUGAR TWICE A DAY 100 strip 11 Active lisinopril 40 MG tabletIndications :Hypertension, unspecified type TAKE 1 TABLET BY MOUTH EVERY DAY IN THE MORNING 90 tablet 1 025 Active omeprazole (PriLOSEC) [address] capsuleIndication s:Heartburn TAKE 1 CAPSULE BY MOUTH EVERY DAY BEFORE A MEAL 90 capsule 1 025 Active atorvastatin (Lipitor) 20 MG tabletIndications :High cholesterol TAKE 1 TABLET BY MOUTH EVERY DAY IN THE MORNING 90 tablet 1 025 Active metFORMIN (Glucophage) 500 MG tabletIndications :Type 2 diabetes mellitus without complication, without long-term current use of insulin (HCC) TAKE 1 TABLET BY MOUTH WITH BREAKFAST AND EVENING MEAL 180 tablet 1 025 Active metFORMIN (Glucophage) 500 MG tabletIndications :Type 2 diabetes mellitus without complication, without long-term current use of insulin (HCC) TAKE 1 TABLET BY MOUTH WITH BREAKFAST AND EVENING MEAL 180 tablet 1 024 2024 Discontinued(R eoankusher (will not trigger notification to Pharmacy)) omeprazole (PriLOSEC) [address] capsuleIndication s:Heartburn TAKE 1 CAPSULE BY MOUTH EVERY DAY BEFORE A MEAL 90 capsule 1 025 2024 Discontinued lisinopril 40 MG tabletIndications :Hypertension, unspecified type TAKE 1 TABLET BY MOUTH EVERY DAY IN THE MORNING 90 tablet 1 025 2024 Discontinued atorvastatin (Lipitor) 20 MG tabletIndications :High cholesterol TAKE 1 TABLET BY MOUTH EVERY DAY IN THE MORNING 90 tablet 1 025 2024 Discontinued Active Problems Problem Noted Date Diagnosed Date Prediabetes 03/20/2025 Assessment & Plan (03/20/2025 4:13 PM EDT): Counseling about healthy diet and exercise on today Continue with same medication regimen Vaginal itching 06/12/2024 Assessment & Plan (06/12/2024 [...] her colorguard recently Mammogram up to date Encounter for screening mamm ogram for malignant neoplasm of breast 03/30/2023 Vascular insufficiency 03/01/2023 Mixed anxiety and depressive disorder 03/01/2023 Assessment & Plan (03/20/2025 4:14 PM EDT): Counseling done today Continue with same interventions Letter for housing to be generated Assessment & Plan (12/19/2024 2:46 PM EDT): Stable continue with hydroxyzine as needed Assessment & Plan (03/30/2023 3:15 PM EDT): Controlled c/w hydroxyzine PRN Fibromyalgia 03/01/2023 Chronic low back pain 03/01/2023 Assessment & Plan (03/30/2023 3:15 PM EDT): C/w acetaminophen PRN Hypertensive disorder 09/18/2014 Assessment & Plan (03/20/2025 4:14 PM EDT): Advised: - Aerobic exercise to reduce BP. Initial [...] consulting health care provider Assessment & Plan (09/05/2024 10:17 AM EST): [...] disease 06/19/2012 Diverticulitis of sigmoid colon 06/19/2012 Resolved Problems Problem Noted Date Diagnosed Date Resolved Date Type 2 diabetes mellitus wit hout complication, without long-term current use of insulin 03/30/2023 03/20/2025 Assessment & Plan (12/19/2024 2:46 PM EDT): [...] advise to take her metformin BID - Encounters Date Type Department Care Team Description 06/19/2025 Patient Outreach [facility] [address] [place], [place] [phone] Nancy Su MD Pre-visit Planning (SDOH was already completed) 06/10/2025 Refill [facility] [address] [place] [address] Nancy Su MD Type 2 diabetes mellitus without complication, without long-term current use of insulin ([facility]) 06/10/2025 Refill [facility] [address] [place] [address] [facility] Heartburn; High cholesterol; Type 2 diabetes mellitus without complication, without long-term current use of insulin ([facility]) 05/28/2025 Refill [facility] [address] [place] [address] [facility] Hypertension, unspecified type 05/03/2025 Refill [facility] [address] [place] [address] Nancy Su MD Type 2 diabetes mellitus without complication, without long-term current use of insulin ([facility]) 03/27/2025 Refill [facility] [address] [place] [address] Nancy Su MD 03/27/2025 Refill [facility] [address] [place] [address] [facility] Heartburn; High cholesterol 03/27/2025 Refill [facility] [address] [place] [address] Maria Antonia Agustin DO 03/24/2025 Telephone [facility] [address] [place] [address] Nancy Su MD 03/20/2025 1:45 PM EDT Office Visit [facility] [address] [place] [address] Nancy Su MD Prediabetes (Primary Dx); Type 2 diabetes mellitus without complication, without long-term current use of insulin ([facility]); Hypertension, unspecified type; Osteoarthritis, unspecified osteoarthritis type, unspecified site; Mixed anxiety and depressive disorder 03/20/2025 Travel 03/19/2025 Telephone [facility] [address] [place] [address] Nancy Su MD Chart Prep from Last 3 Months Immunizations Immunization Administration Dates Next Due Hep B, Adolescent [...] Sign Reading Time Taken Comments Blood Pressure 115/77 03/20/2025 1:56 PM EDT Pulse 72 03/20/2025 1:56 PM EDT Temperature 36.1 C (97 F) 03/20/2025 1:56 PM EDT Respiratory Rate 20 03/20/2025 1:56 PM EDT Oxygen Saturation 98% 03/20/2025 1:56 PM EDT Inhaled Oxygen Concentration - - Weight 71.7 kg (158 lb) 03/20/2025 1:56 PM EDT Height 165.1 cm (5' 5 ) 03/20/2025 1:56 PM EDT Body Mass Index 26.29 03/20/2025 1:56 PM EDT Plan of Treatment Upcoming Encounters Date Type Department Care Team (Late st Contact Info) Description 06/26/2025 1:45 PM EDT Office Visit [facility] [address] [place] [address] Nancy Su MD [address] [place] [address] Health Maintenance Due Date Last Done Comments CT Colonography 1959 Colonoscopy 1959 FIT 1959 Sigmoidoscopy 1959 Diabetes: Foot Exam 1969 Hepatitis C Screening 1977 Pap Smear 1980 Zoster Vaccines (1 of 2) 2009 DTaP/Tdap/Td Vaccines (2 - Td or Tdap) 10/23/2022 10/23/2012, 01/09/2001 Cervical Cancer Screening 02/28/2024 HPV/Cotest 02/28/2024 02/27/2019 FOBT 04/10/2024 04/10/2023 COVID-19 Vaccine ( - season) 2025 06/09/2022, 04/30/2021, 04/09/2021 Influenza Vaccine (#1) 2025 09/04/2023, 2012 Mammogram 05/13/2025 05/13/2024 Alcohol/Substance Use Screening 09/05/2025 09/05/2024 Diabetes: Hemoglobin A1C 09/20/2025 025, 12/19/2024, 09/05/2024, Additional history exists SDOH Screening 12/10/2025 12/10/2024 Diabetes: Urine Protein Screening 12/19/2025 12/19/2024, 04/25/2024, 06/17/2022 Lipid Panel 12/19/2025 12/19/2024, 03/29, 03/30/2023, Additional history exists Depression Screening 03/20/2026 03/20/2025, 03/20/20 Tobacco Screening 03/20/2026 03/20/2025 Colorectal Cancer Screening 04/10/2026 FIT DNA/Cologuard 04/10/2026 04/10/2023 Eye Exam 02/19/2027 02/19/2025, 01/27, 02/19/2025, Additional history exists RSV Patients and Patients Aged 60 years [...] Procedure Name Priority Date/Time Associated Diagnosis Comments POCT GLYCATED HEMOGLOBIN, TOTAL Routine 03/20/2025 1:57 PM EDT Prediabetes POCT GLUCOSE Routine 03/20/2025 1:57 PM EDT Prediabetes ALBUMIN, RANDOM URINE W/CREATININE Routine 12/19/2024 2:15 PM EDT Type 2 diabetes mellitus without complication, without long-term current use of insulin ([facility]/HCC) LIPID PANEL, STANDARD Routine 12/19/2024 2:15 PM EDT Type 2 diabetes mellitus without complication, without long-term current use of insulin (CMS/HCC) BI MAMMOGRAM SCREENING TOMOSYNTHESIS BILATERAL Routine 05/13/2024 2:08 PM EDT Encounter for screening mammogram for malignant neoplasm of breast ZZZ HISTORICAL HPV MRNA E6/E7 Routine 02/27/2019 11:11 AM EDT from Last 3 Months or Most Recently Relevant to Health Maintenance Results * POCT HGB A1C (03/20/2025 1:57 PM EDT) Hemoglobin A1C 5.4 4.0 - 5.7 % QC Media Lot # [id number] Lot# Expiration Date [id number] Blood 03/20/2025 1:57 PM EDT Nancy Chahal MD POINT OF CARE TEST EN TER/EDIT ORDERABLES Final Result * POCT Glucose (03/20/2025 1:57 PM EDT) Glucose Blood, POC 108 60 - 200 mg/dL QC Media Lot # [id number] Lot# Expiration Date [id number] Blood Capillary blood specimen / Unknown 03/20/2025 1:57 PM EDT Nancy Chahal MD POINT OF CARE TEST EN TER/EDIT ORDERABLES Final Result * Albumin, Random Urine W/Creatinine (12/19/2024 2:15 PM EDT) Creatinine, Urine 107.50 mg/dL [facility] Microalbumin Urine 15.0 mg/L [facility] Microalbum Creatinine Ratio Ur 13.9 <30 ug/mg cr [facility] Comment:Albumin/Creatinine R atio Reference Ranges: Normal: < 30 ug/mg creatinine Microalbuminuria: 30 - 300 ug/mg creatinineClinical Albuminuria: > 300 ug/mg creatinine Urine (Urine, Random) 12/19/2024 2:15 PM EDT 12/19/2024 4:09 PM EDT us Nancy Chahal MD LAB URINE ORDERABLES Final Result [facility] [address] [place] [phone] * (ABNORMAL) Lipid Panel, Standard (12/19/2024 2:15 PM EDT) Triglycerides 150(H) <150 mg/dL [facility] Comment:Desirable Triglyceri de: less than 150 mg/dLBorderline High Triglyceride 150-199 mg/dLHigh Triglyceride: 200-499 mg/dLVery High Triglyceride: greater than or equal to 5OO mg/dL Cholesterol 166 <200 mg/dL [facility] Comment:Desirable Cholestero l: less than 200 mg/dLBorderline High Cholesterol: 200-239 mg/dLHigh Cholesterol: greater than 239 mg/dL LDL Cholesterol Calculated 95 <100 mg/dL [facility] Comment:Desirable LDL: less than 100 mg/dLNear Optimal/Above Optimal LDL: 110- 129 mg/dLBorderline High LDL: 130-159 mg/dLHigh LDL: 160-189 mg/dLVery High LDL: greater than or equal to 190 mg/dL HDL Cholesterol 41 >40 mg/dL [facility] Comment:Desirable HDL: great er than 40 mg/dL Note: This HDL assay may give artificially low results in patients with liver disease. Blood Venous blood specimen / Unknown 12/19/2024 2:15 PM EDT 12/19/2024 3:56 PM EDT us Nancy Chahal MD LAB BLOOD ORDERABLES Final Result [facility] [address] [place], [place] [phone] * BI Mammogram Screening Tomosynthesis Bilateral (05/13/2024 2:08 PM EDT) Anatomical Region Laterality Modality Breast Bilateral Mammography 05/13/2024 2:08 PM EDT Narrative 05/24/2024 10:47 AM EDT [address] [place] [address] Mammography Report Signed Patient: Ijeoma Woodson MR#: [id number] : 1960 Acct:[id number] Age/Sex: 63 / F ADM Date: 05/13/24 Loc: HO.MAMMO Attending Dr: Nancy Chahal MD Ordering Physician: Nancy Su MD Results: 1Negative Date of Service: 05/13/24 Follow Up: 1 Year From Orig [facility] Mammogram Procedure(s): MM tomosynthesis screening BI Accession Number(s): [id number] cc: Nancy Su MD EXAMINATION: MM SCREENING [...] Elida Irene DO 05/24/2024 10:44 AM EDT RP Dictated By: Elida Irene DO Signed By: <Electronically signed by Elida Irene DO in OV> 05/24/24 1044 DD/ 1408 TD/TT: 05/13/24 1427 Transportation Maintenance Worker: Procedure Note Donotuseinterpreter, Image - 05/24/2024 [facility] [address] [place] [address] Mammography Report Signed Patient: Zachery Woodson#: [id number] : 9Acct:[id number] Age/Sex: 63 / FADM Date: 05/13/24 Loc: HO.MAMMO Attending Dr: Nancy Chahal MD Ordering Physician: Nancy Su MDResults: 1Negative Date of Service: 05/13/24Follow Up: 1 Year From Orig inal Mammogram Procedure(s): MM tomosynthesis screening BI Accession Number(s): [id number] cc: Nancy Su MD EXAMINATION: MM SCREENING [...] Elida Irene DO 05/24/2024 10:44 AM EDT RP Dictated By: Elida Irene DO Signed By: <Electronically signed by Elida Irene DO in OV> 05/24/24 1044 DD/ 1408 TD/TT: 05/13/24 1427 Transportation Maintenance Worker: us Nancy Chahal MD [facility] Akers al Result * HPV mRNA E6/E7 (02/27/2019 11:11 AM EDT) HPV mRNA E6/E7 Not Detected NOT DETECTED [facility] Comment: This test was performed using the APTIMA(R) HPV Assay ([employer] This assay detects E6/E7 viral messenger RNA (mRNA) from 14 high-risk HPV types (16,18,31,33,35,39,45,51, 52,56,58,59,66,68). For additional information please refer to: http://education.Mesh [place]/faq/KZC865r0 (This link is being provided for informational/ educational purposes only.) The analytical performance characteristics of this assay have been determined by [employer] [place], [place]. The modifications have not been cleared or approved by the FDA. This assay has been validated pursuant to the CLIA regulations and is used for clinical purposes. Test Performed by [facility], [email or web address] [facility], [address] [place] [address] Jack Youssef M.D., Ph.D., Director of Laboratories , CLIA [id number] Please note: Effective 05/09/2016, HPV testing will be performed using [employer]'s APTIMA test which targets mRNA. Detecting mRNA instead of DNA, as in older methods, offers significant improvements in specificity. 02/27/2019 11:1 1 AM EDT us Sammi Raman CNM HISTORICAL/NON ORDERABLE LABS Final Result [facility] [address] from Last 3 Months or Most Recently Relevant to Health Maintenance Insurance [facility] [employer] (HMO D-SNP) [facility] STANDARD Care Teams Ceiling Installer Relationship Specialty Start Date End Date Nancy Su MD [address] [place] [address] PCP - General Family Medicine 04/05/19 Genie Arana Fireworks InspectorData Communications Software Consultant 11/29/23
--- OUTSIDE RECORDS SUMMARY | 2025-06-19 18:50 | XMS_ITS | Encounter Summary ---
Author Organization [employer] Address [address] [place] [address] Care Team Providers Care Time Study Engineer Name Role Phone Nancy Su MD Primary Care Provide r Encounter Details Date Type Department Care Team ([facility] st Contact Info) Description 07/25/2023 Abstract [facility] [address] [place] [address] Betsy Case Social History Tobacco Use Types [...] 1:45 PM EDT Office Visit [facility] [address] [place] [address] Nancy Su MD [address] [place], [place] [phone] documented as of this encounter Visit Diagnoses Not on filedocumented in this encounter Additional Health Concerns Assessment Noted Time PHQ-9 Depression Total Score: 0 03/30/20 23 1:48 PM EDT documented as of this encounter Care Teams Time Study Engineer Relationship Specialty Start Date End Date Nancy Su MD [address] [place], [place] [phone] PCP - General Family Medicine 04/05/19 Genie Arana Oriental Rug RepairerUm Rn 11/29/23 documented as of this encounter
--- OUTSIDE RECORDS SUMMARY | 2025-06-19 18:50 | XMS_ITS | Encounter Summary ---
Author Organization [employer] Address [address] [facility] [address] [place] [address] Care Team Providers Care Skin Care Therapist Name Role Phone Nancy Su MD Primary Care Provide r Encounter Details Date Type Department Care Team ([facility] st Contact Info) Description 06/07/2023 Abstract [facility] [address] [place] [address] Nancy Su MD [address] [place] [address] Social History Tobacco Use Types Packs/Day Years [...] Description 06/26/2025 1:45 PM EDT Office Visit [facility] [address] [place] [address] Nancy Su MD [address] [place] [address] documented as of this encounter Visit Diagnoses Not on filedocumented in this encounter Additional Health Concerns Assessment Noted Time PHQ-9 Depression Total Score: 0 03/30/20 23 1:48 PM EDT documented as of this encounter Care Teams Skin Care Therapist Relationship Specialty Start Date End Date Nancy Su MD [address] [place] [address] PCP - General Family Medicine 04/05/19 Genie Arana Travel Agency ManagerHotel Breakfast Attendant 11/29/23 documented as of this encounter
--- OUTSIDE RECORDS SUMMARY | 2025-06-19 18:50 | XMS_ITS | Encounter Summary ---
Author Organization [employer] Address [address] [facility] [address] [place] [address] Care Team Providers Care Carriage Setter Name Role Phone Nancy Su MD Primary Care Provide r Reason for Visit * Reason Comments Med Refill Encounter Details Date Type Department Care Team ([facility] Contact Info) Description 08/17/2023 Refill [facility] [address] [place] [address] Name, MD Lloyd [address] [place] [address] Chronic pain syndrome Social History Tobacco Use [...] Description 06/26/2025 1:45 PM EDT Office Visit [facility] [address] [place] [phone] Nancy Su MD [address] [place] [address] documented as of this encounter Visit Diagnoses Diagnosis Chronic pain syndrome documented in this encounter Additional Health Concerns Assessment Noted Time PHQ-9 Depression Total Score: 0 03/30/20 23 1:48 PM EDT documented as of this encounter Care Teams Carriage Setter Relationship Specialty Start Date End Date Nancy Su MD [address] [place] [phone] PCP - General Family Medicine 04/05/19 Genie Arana Target Aircraft ControllerTandem Mill Sticker 11/29/23 documented as of this encounter
--- OUTSIDE RECORDS SUMMARY | 2025-06-19 18:50 | XMS_ITS | Clinical Summary ---
Author Organization [facility] ity Address [address] [place] [address] Care Team Providers Care Dental Technology Advisor Name Role Phone Unavailable Primary Care Provider [...] 2009 Zoster Vaccines (1 of 2) 2009 Depression Screening 08/28/2024 COVID-19 Vaccine (1 - 2023-2 5 season) 2025 Influenza Vaccine (#1) 2025 RSV Immunization Adult Patie nts (1 [...]
== END 2025-06-19 14:58 | disposition home or self-care (01) ==
LOC: HO.MAMMO 14:57
PROVIDERS: PCP Internal Medicine; Visit Provider Internal Medicine
DX: Z12.31 Encounter for screening mammogram for malignant neoplasm of breast (principal)
CPT/HCPCS: 77063; 77067

== ENCOUNTER → 2025-06-19 15:15 | Outpatient (BNV) | payer OTHER, SELFPAY | PROVIDERS: PCP Internal Medicine; Visit Provider Internal Medicine | DX: Z12.31 Encounter for screening mammogram for malignant neoplasm of breast (principal) | CPT/HCPCS: 77063; 77067 ==

== ENCOUNTER 2025-07-04 09:56 | Outpatient (REF) | payer OTHER, SELFPAY ==
--- NOTE | ~2025-07-04 | XR_ITS ---
EXAMINATION: XR HIP 2 OR MORE VIEWS RIGHT HISTORY: pain after fall COMPARISON: Comparison is made with the prior examination dated 08/17/2017. FINDINGS: Two views of the right hip are submitted. Osseous mineralization is normal. There is no fracture or dislocation. The joint space is maintained. The soft tissues are unremarkable. XR/XR hip RT min 2V IMPRESSION: No evidence of fracture of the right hip. Electronically signed by: Josue Vo MD 07/04/2025 10:25 AM UYEN HANNA
--- OUTSIDE RECORDS SUMMARY | 2025-07-04 11:39 | XMS_ITS | Clinical Summary ---
Author Organization [employer] Address [address] [facility] 7t [place] [address] Care Team Providers Care Industrial Gas Service Helper Name Role Phone Nancy Su MD Primary [...] hours take another one tablet 1 tablet 024 Active fluconazole (Diflucan) 150 MG tablet Take 1 tab today and 1 next week 2 tablet 024 Active GaviLAX 17 GM/SCOOP powder MIX & TAKE 17GM BY MOUTH ONCE PER DAY. 510 g 2 024 Active Blood Glucose Monitoring Suppl (ONE TOUCH ULTRA 2) w/Device kitIndications:Ty pe 2 diabetes mellitus without complication, without long-term current use of insulin (HCC) USE TO TEST BLOOD SUGAR TWICE A DAY 1 kit 025 Active OneTouch Delica Lancets 33G miscIndications:T ype 2 diabetes mellitus without complication, without long-term current use of insulin (HCC) USE TO TEST BLOOD SUGAR TWICE A [...] evening, and at bedtime (pain). 150 g 025 Active naproxen (Naprosyn) 500 MG tablet TAKE 1 TABLET (500 MG) BY MOUTH IN THE MORNING AND AT BEDTIME NEEDED FOR MILD PAIN 30 tablet 025 Active Alcohol Swabs (Alcohol Pads) 70 % pads USE DIRECTED TWICE DAILY 100 each Active OneTouch Ultra test stripIndications: Type 2 diabetes mellitus without complication, without long-term current use of insulin (HCC) USE TO TEST BLOOD SUGAR TWICE A DAY 100 strip 11 025 Active lisinopril 40 MG tabletIndications :Hypertension, unspecified type TAKE 1 TABLET BY MOUTH EVERY DAY IN THE MORNING 90 tablet 1 025 Active omeprazole (PriLOSEC) [address] capsuleIndication s:Heartburn TAKE 1 CAPSULE BY MOUTH EVERY DAY BEFORE A MEAL 90 capsule 025 Active atorvastatin (Lipitor) 20 MG tabletIndications [...] MEAL 180 tablet 1 024 2024 Discontinued(R eorder (will not trigger notification to Pharmacy)) nystatin (Mycostatin) 607528 UNIT/GM powder Apply topically 2 times daily. 60 g 3 024 2024 nystatin (Mycostatin) cream Apply topically 2 times daily. 30 g 2 024 2024 omeprazole (PriLOSEC) [address] capsuleIndication s:Heartburn TAKE 1 CAPSULE BY MOUTH EVERY DAY BEFORE A MEAL 90 capsule 1 025 2024 Discontinued atorvastatin (Lipitor) 20 MG tabletIndications :High cholesterol TAKE 1 TABLET BY MOUTH EVERY DAY IN THE MORNING 90 tablet 1 025 2024 Discontinued Active Problems Problem Noted Date Diagnosed Date Right hip pain 06/26/2025 Prediabetes 03/20/2025 Assessment & Plan (03/20/2025 4:13 [...] Encounters Date Type Department Care Team Description 06/26/2025 1:45 PM EDT Office Visit [address] [address] Nancy Su MD Primary hypertension (Primary Dx); Prediabetes; Right hip pain 06/26/2025 Travel 06/25/[address] [address] Nancy Su MD chart prep 06/19/2025 Orders Only [facility] [address] [place] [address] Nancy Su MD 06/19/2025 Patient Outreach [facility] [address] [place] [address] Nancy Su MD Pre-visit Planning (SDOH was already completed) 06/10/2025 Refill [facility] [address] [place] [address] Nancy Su MD Type 2 diabetes mellitus without complication, without long-term current use of insulin ([facility]) 06/10/2025 Refill [facility] [address] [place] [address] Nani Banuelos ZIPPER JOINER Heartburn; High cholesterol; Type 2 diabetes mellitus without complication, without long-term current use of insulin ([facility]) 05/28/2025 Refill [facility] [address] [place] [address] [facility] Hypertension, unspecified type 05/03/2025 Refill [facility] [address] [place] [address] Nancy Su MD Type 2 diabetes mellitus without complication, without long-term current use of insulin ([facility]) from Last 3 Months Immunizations Immunization Administration [...] Sign Reading Time Taken Comments Blood Pressure 116/78 06/26/2025 1:59 PM EDT Pulse 67 06/26/2025 1:59 PM EDT Temperature 34.4 C (94 F) 06/26/2025 1:59 PM EDT Respiratory Rate 16 06/26/2025 1:59 PM EDT Oxygen Saturation 99% 06/26/2025 1:59 PM EDT Inhaled Oxygen Concentration - - Weight 72.6 kg (160 lb) 06/26/2025 1:59 PM EDT Height 165.1 cm (5' 5 ) 06/26/2025 1:59 PM EDT Body Mass Index 26.63 06/26/2025 1:59 PM EDT Plan of Treatment Health Maintenance Due Date Last Done Comments CT Colonography 1959 Colonoscopy 1959 FIT 1959 Sigmoidoscopy 1959 Diabetes: Foot Exam 1969 Hepatitis C Screening 1977 Pap Smear 1980 Zoster Vaccines (1 of 2) 2009 DTaP/Tdap/Td Vaccines (2 - Td or Tdap) 10/23/2022 10/23/2012, 01/09/2001 Cervical Cancer Screening 02/28/2024 HPV/Cotest 02/28/2024 02/27/2019 FOBT 04/10/2024 04/10/2023 COVID-19 Vaccine ( season) 2025 06/09/2022, 04/30/2021, 04/09/2021 Influenza Vaccine (#1) 2025 09/04/2023, 2012 Alcohol/Substance Use Screening 09/05/2025 09/05/2024 Diabetes: Hemoglobin A1C 09/20/2025 025, 12/19/2024, 09/05/2024, Additional history exists SDOH Screening 12/10/2025 12/10/2024 Diabetes: Urine Protein Screening 12/19/2025 12/19/2024, 04/25/2024, 06/17/2022 Lipid Panel 12/19/2025 12/19/2024, 03/29, 03/30/2023, Additional history exists Depression Screening 03/20/2026 03/20/2025, 03/20/20 25 Colorectal Cancer Screening 04/10/2026 FIT DNA/Cologuard 04/10/2026 04/10/2023 Mammogram 06/19/2026 06/19/2025, 05/13/2024 Tobacco Screening 06/26/2026 06/26/2025 Eye Exam 02/19/2027 02/19/2025, 01/27, 02/19/2025, Additional [...] Procedure Name Priority Date/Time Associated Diagnosis Comments XR HIP 2 OR 3 VIEWS RIGHT Routine 07/04/2025 10:15 AM EST Right hip pain BI MAMMOGRAM SCREENING TOMOSYNTHESIS BILATERAL Routine 06/19/2025 3:24 PM EDT POCT GLYCATED HEMOGLOBIN, TOTAL Routine 03/20/2025 1:57 PM EDT Prediabetes ALBUMIN, RANDOM URINE W/CREATININE Routine 12/19/2024 2:15 PM EDT Type 2 diabetes mellitus without complication, without long-term current use of insulin (CMS/HCC) LIPID PANEL, STANDARD Routine 12/19/2024 2:15 PM EDT Type 2 diabetes mellitus without complication, without long-term current use of insulin (CMS/HCC) ZZZ HISTORICAL HPV MRNA E6/E7 Routine 02/27/2019 11:11 AM EDT from Last 3 Months or Most Recently Relevant to Health Maintenance Results * XR Hip 2 or 3 Views Right (07/04/2025 10:15 AM EST) Anatomical Region Laterality Modality Lower Extremities, Hip Right Radiograp hic Imaging 07/04/2025 10:1 5 AM EST Narrative 07/04/2025 10:28 AM EST [address] [address] XRay Report Signed Patient: Ijeoma Woodson MR#: [id number] 655 : 1960 Acct:[id number] Age/Sex: 64 / F ADM Date: 07/04/25 Loc: [facility] Attending Dr: Nancy Chahal MD Ordering Physician: Nancy Su MD Date of Service: 07/04/25 Procedure(s): XR hip RT min 2V Accession Number(s): [id number] cc: Nancy Su MD Reason for Exam: pain after fall EXAMINATION: XR HIP 2 OR MORE VIEWS RIGHT HISTORY: pain after fall COMPARISON: Comparison is made with the prior examination dated 08/17/2017. FINDINGS: Two views of the right hip are submitted. Osseous mineralization is normal. There is no fracture or dislocation. The joint space is maintained. The soft tissues are unremarkable. XR/XR hip RT min 2V IMPRESSION: No evidence of fracture of the right hip. Electronically signed by: Josue Vo MD 07/04/2025 10:25 AM EST Dictated By: Josue Vo MD Signed By: <Electronically signed by Josue Vo MD in OV> 07/04/25 1025 DD/ 1015 TD/TT: 07/04/25 1019 Sales And Operations Trainee: Procedure Note Donotuseinterpreter, Image - 07/04/[address] [address] XRay Report Signed Patient: Ijeoma WoodsonMR#: [id number] : 1960cct:[id number] Age/Sex: 64 / FADM Date: 07/04/25 Loc: [facility] Attending Dr: Nancy Chahal MD Ordering Physician: Nancy Su MD Date of Service: 07/04/25 Procedure(s): XR hip RT min 2V Accession Number(s): [id number] cc: Nancy Su MD Reason for Exam: pain after fall EXAMINATION: XR HIP 2 OR MORE VIEWS RIGHT HISTORY: pain after fall COMPARISON: Comparison is made with the prior examination dated 08/17/2017. FINDINGS: Two views of the right hip are submitted. Osseous mineralization is normal. There is no fracture or dislocation. The joint space is maintained. The soft tissues are unremarkable. XR/XR hip RT min 2V IMPRESSION: No evidence of fracture of the right hip. Electronically signed by: Josue Vo MD 07/04/2025 10:25 AM EST RP Dictated By: Josue Vo MD Signed By: <Electronically signed by Josue Vo MD in OV> 07/04/25 1025 DD/ 1015 TD/TT: 07/04/25 1019 Sales And Operations Trainee: Nancy Chahal MD IMG XR PROCEDURES Fin al Result * BI Mammogram Screening Tomosynthesis Bilateral (06/19/2025 3:24 PM EDT) Anatomical Region Laterality Modality Breast Bilateral Mammography 06/19/2025 3:24 PM EDT Narrative 06/23/2025 11:47 AM EDT [facility] [address] [place] [place] [address] Mammography Report Signed Patient: Ijeoma Woodson MR#: [id number] 655 : 1960 Acct:[id number] Age/Sex: 64 / F ADM Date: 06/19/25 Loc: HO.MAMMO Attending Dr: Nancy Chahal MD Ordering Physician: Nancy Su MD Results: 1Negative Date of Service: 06/19/25 Follow Up: 1 Year From Orig inal Mammogram Procedure(s): MM tomosynthesis screening BI Accession Number(s): [id number] cc: Nancy Su MD Reason For Exam: SCREENING EXAMINATION: MM SCREENING DIGITAL BREAST TOMOSYNTHESIS, BILATERAL CLINICAL INFORMATION: Screening. Asymptomatic. COMPARISON: Mammography: Comparison is made with available priors TECHNIQUE: Digital breast mammography with tomosynthesis is performed in both the craniocaudal and mediolateral oblique views along with computer-aided detection (CAD). FINDINGS: There are scattered areas of fibroglandular density. There are no significant masses, abnormal calcifications, or other abnormalities. MM/MM tomosynthesis screening BI IMPRESSION: No mammographic evidence of malignancy. ASSESSMENT: BI-RADS Category 1: Negative RECOMMENDATION: Routine annual mammography screening. 1 year F/U This examination should not preclude the clinical evaluation of a suspicious palpable abnormality. This patient's information was entered into a reminder system with a target due date for their next mammogram. Electronically signed by: Elida Irene DO 06/23/2025 11:44 AM EDT RP Dictated By: Elida Irene DO Signed By: <Electronically signed by Elida Irene DO in OV> 06/23/25 1144 DD/ 1524 TD/TT: 06/19/25 1525 Sales And Operations Trainee: Procedure Note Donotuseinterpreter, Image - [facility] [address] [place] [address] Mammography Report Signed Patient: Ijeoma WoodsonMR#: [id number] 655 : 9Acct:[id number] Age/Sex: 64 / FADM Date: 06/19/25 Loc: [facility] Attending Dr: Nancy Chahal MD Ordering Physician: Nancy Su MDResults: 1Negative Date of Service: 06/19/25Follow Up: 1 Year From Orig inal Mammogram Procedure(s): MM tomosynthesis screening BI Accession Number(s): [id number] cc: Nancy Su MD Reason For Exam: SCREENING EXAMINATION: MM SCREENING DIGITAL BREAST TOMOSYNTHESIS, BILATERAL CLINICAL INFORMATION: Screening. Asymptomatic. COMPARISON: Mammography: Comparison is made with available priors TECHNIQUE: Digital breast mammography with tomosynthesis is performed in both the craniocaudal and mediolateral oblique views along with computer-aided detection (CAD). FINDINGS: There are scattered areas of fibroglandular density. There are no significant masses, abnormal calcifications, or other abnormalities. MM/MM tomosynthesis screening BI IMPRESSION: No mammographic evidence of malignancy. ASSESSMENT: BI-RADS Category 1: Negative RECOMMENDATION: Routine annual mammography screening. 1 year F/U This examination should not preclude the clinical evaluation of a suspicious palpable abnormality. This patient's information was entered into a reminder system with a target due date for their next mammogram. Electronically signed by: Elida Irene DO 06/23/2025 11:44 AM EDT RP Dictated By: Elida Irene DO Signed By: <Electronically signed by Elida Irene DO in OV> 06/23/25 1144 DD/ 1524 TD/TT: 06/19/25 152 Sales And Operations Trainee: Nancy Chahal MD IMG BI PROCEDURES Jamie nelida Result - Final * POCT HGB A1C (03/20/2025 1:57 PM EDT) Hemoglobin A1C 5.4 4.0 - 5.7 % QC Media Lot # [id number] Lot# Expiration Date Blood 03/20/2025 1:57 PM EDT Nancy Chahal MD POINT OF CARE TEST EN TER/EDIT ORDERABLES Final Result * Albumin, Random Urine W/Creatinine (12/19/2024 2:15 PM EDT) Creatinine, Urine 107.50 mg/dL [facility] Microalbumin Urine 15.0 mg/L [facility] Microalbum Creatinine Ratio Ur 13.9 <30 ug/mg cr [facility] Comment:Albumin/Creatinine R atio Reference Ranges: Normal: < 30 ug/mg creatinine Microalbuminuria: 30 - 300 ug/mg creatinineClinical Albuminuria: > 300 ug/mg creatinine Urine (Urine, Random) 12/19/2024 2:15 PM EDT 12/19/2024 4:09 PM EDT Nancy Chahal MD LAB URINE ORDERABLES Final Result Performing Organization Address [facility] Co de Phone Number [facility] [address] [place] [address] [phone] * (ABNORMAL) Lipid Panel, Standard (12/19/2024 2:15 PM EDT) Triglycerides 150(H) <150 mg/dL [facility] Comment:Desirable Triglyceri de: less than 150 mg/dLBorderline High Triglyceride 150-199 mg/dLHigh Triglyceride: 200-499 mg/dLVery High Triglyceride: greater than or equal to 5OO mg/dL Cholesterol 166 <200 mg/dL [facility] Comment:Desirable Cholestero l: less than 200 mg/dLBorderline High Cholesterol: 200-239 mg/dLHigh Cholesterol: greater than 239 mg/dL LDL Cholesterol Calculated 95 <100 mg/dL [facility] Comment:Desirable LDL: less than 100 mg/dLNear Optimal/Above Optimal LDL: 110- 129 mg/dLBorderline High LDL: 130-159 mg/dLHigh LDL: 160-189 mg/dLVery High LDL: greater than or equal to 190 mg/dL HDL Cholesterol 41 >40 mg/dL [facility] Comment:Desirable HDL: great er than 40 mg/dL Note: This HDL assay may give artificially low results in patients with liver disease. Blood Venous blood specimen / Unknown 12/19/2024 2:15 PM EDT 12/19/2024 3:56 PM EDT us Nancy Chahal MD LAB BLOOD ORDERABLES Final Result Performing Organization Address [facility]/ZIP Co de Phone Number [facility] [address] [place] [address] [phone] * HPV mRNA E6/E7 (02/27/2019 11:11 AM EDT) HPV mRNA E6/E7 Not Detected NOT DETECTED [facility] Comment: This test was performed using the APTIMA(R) HPV Assay ([employer] This assay detects E6/E7 viral messenger RNA (mRNA) from 14 high-risk HPV types (16,18,31,33,35,39,45,51, 52,56,58,59,66,68). For additional information please refer to: http://education.Ancestry/faq/NJE516s0 (This link is being provided for informational/ educational purposes only.) The analytical performance characteristics of this assay have been determined by [facility] [place], [place]. The modifications have not been cleared or approved by the FDA. This assay has been validated pursuant to the CLIA regulations and is used for clinical purposes. Test Performed by [facility], [facility] [place], [address] [place] [address] Jakc Youssef M.D., Ph.D., Director of Laboratories , CLIA [id number] Please note: Effective 05/09/2016, HPV testing will be performed using [employer]'s APTIMA test which targets mRNA. Detecting mRNA instead of DNA, as in older methods, offers significant improvements in specificity. 02/27/2019 11:1 1 AM EDT Sammi Raman CNM HISTORICAL/NON ORDERABLE LABS Final Result [facility] [address] from Last 3 Months or Most Recently Relevant to Health Maintenance Insurance [facility] SKILLED NURSING OPTIONS (HMO D-SNP) [facility] STANDARD Care Teams Industrial Gas Service Helper Relationship Specialty Start Date End Date Nancy Su MD [address] [place] [address] PCP - General Family Medicine 04/05/19 Genie Arana Casework SpecialistIcer Air Conditioning 11/29/23
--- OUTSIDE RECORDS SUMMARY | 2025-07-04 11:39 | XMS_ITS | Encounter Summary ---
Author Organization [employer] Address [address] [facility] 7t [place] [address] Care Team Providers Care Personal Lines Agent Name Role Phone Nancy Su MD Primary Care Provide r Reason for Visit * Reason Comments Med Refill Encounter Details Date Type Department Care Team ([facility] Contact Info) Description 03/27/2025 Refill [facility] [address] [place], [place] [phone] [facility] [address] [place] [address] Heartburn; High cholesterol Social History Tobacco Use [...] as of this encounter Plan of Treatment Not on file documented as of this encounter Visit Diagnoses Diagnosis Heartburn High cholesterol Pure hypercholesterolemia documented in this encounter Additional Health Concerns Assessment Noted Time PHQ-9 Depression Total Score: 0 03/20/20 25 3:03 PM EDT documented as of this encounter Care Teams Personal Lines Agent Relationship Specialty Start Date End Date Nancy Su MD [address] [place] [phone] PCP - General Family Medicine 04/05/19 Genie Arana Public Welfare DirectorFirewood Cutter 11/29/23 documented as of this encounter
--- OUTSIDE RECORDS SUMMARY | 2025-07-04 11:39 | XMS_ITS | Encounter Summary ---
Author Organization [employer] Address [address] [facility] 7t [place] [address] Care Team Providers Care Textile Cutting Machine Operator Name Role Phone Nancy Su MD Primary Care Provide r Reason for Visit * Reason Comments Med Refill Encounter Details Date Type Department Care Team ([facility] Contact Info) Description 04/06/2024 Refill [facility] [address] [place] [address] Nancy Su MD [address] [place] [address] Heartburn; Hypertension, unspecified type; High cholesterol; Constipation, [...] documented as of this encounter Care Teams Textile Cutting Machine Operator Relationship Specialty Start Date End Date Nancy Su MD [address] [place] [phone] PCP - General Family Medicine 04/05/19 Genie Arana Role PlayerAgile Tester 11/29/23 documented as of this encounter
--- OUTSIDE RECORDS SUMMARY | 2025-07-04 11:39 | XMS_ITS | Encounter Summary ---
Author Organization [employer] Address [address] [facility] 7t [place] [address] Care Team Providers Care Cell Assembly Pinner Name Role Phone Nancy Su MD Primary Care Provide r Reason for Visit * Reason Comments Med Refill Encounter Details Date Type Department Care Team ([facility] Contact Info) Description 08/17/2023 Refill [facility] [address] [place] [address] Name, MD Lloyd [address] [place] [address] Chronic pain syndrome Social History Tobacco Use [...] documented as of this encounter Care Teams Cell Assembly Pinner Relationship Specialty Start Date End Date Nancy Su MD [address] [place] [phone] PCP - General Family Medicine 04/05/19 Genie Arana Manager InternshipNavy Seal 11/29/23 documented as of this encounter
--- OUTSIDE RECORDS SUMMARY | 2025-07-04 11:39 | XMS_ITS | Clinical Summary ---
Author Organization [employer] [facility] Address [address] [place] [address] Care Team Providers Care Extruder Operator Multiple Name Role Phone Unavailable Primary Care Provider [...]
--- OUTSIDE RECORDS SUMMARY | 2025-07-04 11:39 | XMS_ITS | Encounter Summary ---
Author Organization [employer] Address [address] [facility] 7t [place] [address] Care Team Providers Care It Teacher Name Role Phone Nancy Su MD Primary Care Provide r Reason for Visit * Reason Comments Med Refill Encounter Details Date Type Department Care Team ([facility] Contact Info) Description 09/10/2024 Refill [facility] [address] [place] [address] Nancy Su MD [address] [place] [address] Hypertension, unspecified type; High cholesterol Social History [...] documented as of this encounter Care Teams It Teacher Relationship Specialty Start Date End Date Nancy Su MD [address] [place] [phone] PCP - General Family Medicine 04/05/19 Genie Arana Systems AuditorSpice Room Worker 11/29/23 documented as of this encounter
--- OUTSIDE RECORDS SUMMARY | 2025-07-04 11:39 | XMS_ITS | Encounter Summary ---
Author Organization [employer] Address [address] [facility] 7t [place] [address] Care Team Providers Care Mri Manager Name Role Phone Nancy Su MD Primary Care Provide r Reason for Visit * Reason Comments Med Change Request Encounter Details Date Type Department Care Team ([facility] Contact Info[facility] Description 04/25/2024 Refill [facility] [address] [place] [address] Nancy Su MD [address] [place] [address] Primary hypertension Social History Tobacco Use Types [...] documented in this encounter Plan of Treatment Not on file documented as of this encounter Visit Diagnoses Diagnosis Primary hypertension Unspecified essential hypertension documented in this encounter Additional Health Concerns Assessment Noted Time PHQ-9 Depression Total Score: 0 11/23/19 24 1:36 PM EDT documented as of this encounter Care Teams Mri Manager Relationship Specialty Start Date End Date Nancy Su MD [address] [place] [address] PCP - General Family Medicine 04/05/19 Genie Arana Yard Warehouse WorkerCommunity Midwife 11/29/23 documented as of this encounter
--- OUTSIDE RECORDS SUMMARY | 2025-07-04 11:40 | XMS_ITS | Encounter Summary ---
Author Organization [employer] Address [address] [facility] [address] 7[address] [place] [address] Care Team Providers Care Cementing Bulk Material Operator Name Role Phone Nancy Su MD Primary Care Provide r Encounter Details Date Type Department Care Team ([facility] st Contact Info) Description 07/25/[address] [facility] [address] [place] [address] Betsy Case Social History Tobacco Use Types [...] documented as of this encounter Care Teams Cementing Bulk Material Operator Relationship Specialty Start Date End Date Nancy Su MD [address] [place] [address] PCP - General Family Medicine 04/05/19 Genie Arana Staff Physical TherapistGeek Squad Manager 11/29/23 documented as of this encounter
--- OUTSIDE RECORDS SUMMARY | 2025-07-04 11:40 | XMS_ITS | Encounter Summary ---
Author Organization [employer] Address [address] [facility] 7t [place] [address] Care Team Providers Care Clinical Technician Name Role Phone Nancy Su MD Primary Care Provide r Encounter Details Date Type Department Care Team ([facility] st Contact Info) Description 06/07/2023 Abstract [facility] [address] [place] [address] Nancy Su MD [address] [place] [address] Social History Tobacco Use Types Packs/Day Years [...] documented as of this encounter Care Teams Clinical Technician Relationship Specialty Start Date End Date Nancy Su MD [address] [place] [address] PCP - General Family Medicine 04/05/19 Genie Arana Inspector Balance TruingWater Systems Designer 11/29/23 documented as of this encounter
== END 2025-07-04 09:57 | disposition home or self-care (01) ==
LOC: HO.HHCL 09:56
PROVIDERS: PCP Internal Medicine; Visit Provider Internal Medicine
DX: M25.551 Pain in right hip (principal); W19.XXXA Unspecified fall, initial encounter
CPT/HCPCS: 73502

== ENCOUNTER → 2025-07-04 10:02 | Outpatient (BNV) | payer OTHER, SELFPAY | PROVIDERS: PCP Internal Medicine; Visit Provider Radiology Diagnostic Radiology | DX: M25.551 Pain in right hip (principal); Z04.3 Encounter for examination and observation following other accident | CPT/HCPCS: 73502 ==